=== PATIENT | male | born 1940 | race Caucasian/White ===

== ENCOUNTER 2020-05-03 11:38 | Outpatient (CLI) | payer MEDICARE, SELFPAY ==
[2020-05-03 12:01] LABS: Basophils Percent Auto 0.3 % (0.2-1.2); Eosinophils Absolute Auto 0.2 K/mm3 (0-0.3); Eosinophils Percent Auto 2.7 % (0-4.4); Hematocrit 41.1 % (42.0-52.0); Hemoglobin 13.7 g/dL (14.0-18.0); Immature Granulocyte Absolute 0.02 K/mm3 (0.00-0.031); Immature Granulocyte Percent A 0.3 % (0-0.5); Lymphocytes Absolute Auto 2.51 K/mm3 (0.9-3.2); Lymphocytes Percent Auto 35.3 % (18.3-44.2); Mean Corpuscular HGB Conc 33.3 g/dl (32-36); Mean Corpuscular Hemoglobin 29.9 pg (26-34); Mean Corpuscular Volume 89.7 fl (80-100); Monocytes Absolute Auto 0.3 K/mm3 (0.1-0.6); Monocytes Percent Auto 3.8 % (2.6-8.5); Neutrophils Absolute Auto 4.1 K/mm3 (1.3-6.7); Neutrophils Percent Auto 57.6 % (45.5-73.1); Platelet Count Result 201 k/mm3 (150-375); Red Blood Count 4.58 M/mm3 (4.6-6.20); Red Cell Distribution Width 13.6 % (11.5-14.5); White Blood Count 7.1 K/mm3 (4.5-10.0)
[2020-05-03 12:16] LABS: Alanine Aminotransferase 16 U/L (4-50); Albumin Level 4.2 g/dL (3.5-5.1); Alkaline Phosphatase 60 U/L (38-126); Aspartate Amino Transferase 24 U/L (17-59); Bilirubin,Total 0.8 mg/dL (0.2-1.3); Blood Urea Nitrogen 27 mg/dL (9-20); Calcium 9.1 mg/dL (8.4-10.2); Carbon Dioxide 31 mmol/L (22-30); Chloride 103 mmol/L (98-107); Cholesterol 195 mg/dL (0-200); Estimated Glomerular Filt Rate 49; Glucose 117 mg/dL (75-110); HDL Direct 32 mg/dL; Potassium 3.9 mmol/L (3.4-5.0); Sodium 141 mmol/L (137-145); Triglycerides 97 mg/dL (<150)
[2020-05-03 12:27] LABS: LDL Cholesterol Direct 129 mg/dL
== END 2020-05-03 11:39 | disposition home or self-care (01) ==
PROVIDERS: PCP Family Medicine; Visit Provider Nurse Practitioner
DX: R53.83 Other fatigue (principal); I10 Essential (primary) hypertension; Z13.220 Encounter for screening for lipoid disorders
CPT/HCPCS: 36415; 80053; 80061; 85025

== ENCOUNTER 2020-11-06 07:55 | Outpatient (CLI) | payer MEDICARE, SELFPAY ==
[2020-11-06 08:38] LABS: Hematocrit 43.9 % (42.0-52.0); Hemoglobin 14.5 g/dL (14.0-18.0); Mean Corpuscular Hemoglobin 30.3 pg (26-34); Mean Corpuscular Volume 91.8 fl (80-100); Mean Platelet Volume 9.4 fl (7.4-10.4); Platelet Count Result 193 k/mm3 (150-375); Red Blood Count 4.78 M/mm3 (4.6-6.20); Red Cell Distribution Width 13.6 % (11.5-14.5); White Blood Count 6.9 K/mm3 (4.5-10.0)
[2020-11-06 08:39] LABS: Alanine Aminotransferase 15 U/L (4-50); Alkaline Phosphatase 63 U/L (38-126); Anion Gap 6 mmol/L (8-16); Aspartate Amino Transferase 21 U/L (17-59); Bilirubin,Total 0.6 mg/dL (0.2-1.3); Blood Urea Nitrogen 26 mg/dL (9-20); Calcium 9.3 mg/dL (8.4-10.2); Carbon Dioxide 31 mmol/L (22-30); Chloride 102 mmol/L (98-107); Cholesterol 181 mg/dL (0-200); Estimated Glomerular Filt Rate 53; Glucose 106 mg/dL (75-110); HDL Direct 34 mg/dL; Potassium 3.5 mmol/L (3.4-5.0); Sodium 139 mmol/L (137-145); Triglycerides 77 mg/dL (<150)
[2020-11-06 08:50] LABS: LDL Cholesterol Direct 124 mg/dL
== END 2020-11-06 07:56 | disposition home or self-care (01) ==
PROVIDERS: PCP Nurse Practitioner Family; Visit Provider Nurse Practitioner Family
DX: I10 Essential (primary) hypertension (principal); E11.9 Type 2 diabetes mellitus without complications; E78.5 Hyperlipidemia, unspecified
CPT/HCPCS: 36415; 80053; 80061; 83036; 85027

== ENCOUNTER 2021-01-04 16:06 | Outpatient (CLI) | payer MEDICARE, SELFPAY | END 2021-01-04 16:07 | disposition home or self-care (01) | LOC: ANHCOVIDVC 16:06 | PROVIDERS: PCP Nurse Practitioner Family; Visit Provider Nurse Practitioner Family | DX: Z23 Encounter for immunization (principal) | CPT/HCPCS: 0001A; 91300 ==

== ENCOUNTER 2021-01-25 16:08 | Outpatient (CLI) | payer MEDICARE, SELFPAY | END 2021-01-25 16:09 | disposition home or self-care (01) | LOC: ANHCOVIDVC 16:08 | PROVIDERS: PCP Nurse Practitioner Family | DX: Z23 Encounter for immunization (principal) | CPT/HCPCS: 0002A; 91300 ==

== ENCOUNTER 2022-05-15 08:03 | Outpatient (CLI) | payer MEDICARE, SELFPAY ==
[2022-05-15 09:44] LABS: Basophils Percent Auto 0.5 % (0.2-1.2); Eosinophils Absolute Auto 0.1 K/mm3 (0-0.3); Eosinophils Percent Auto 2.3 % (0-4.4); Hematocrit 41.9 % (42.0-52.0); Hemoglobin 13.6 g/dL (14.0-18.0); Immature Granulocyte Absolute 0.02 K/mm3 (0.00-0.031); Immature Granulocyte Percent A 0.3 % (0-0.5); Lymphocytes Absolute Auto 1.86 K/mm3 (0.9-3.2); Mean Corpuscular HGB Conc 32.5 g/dl (32-36); Mean Corpuscular Hemoglobin 29.5 pg (26-34); Mean Corpuscular Volume 90.9 fl (80-100); Mean Platelet Volume 9.5 fl (7.4-10.4); Monocytes Absolute Auto 0.3 K/mm3 (0.1-0.6); Monocytes Percent Auto 4.8 % (2.6-8.5); Neutrophils Absolute Auto 3.7 K/mm3 (1.3-6.7); Neutrophils Percent Auto 61.1 % (45.5-73.1); Platelet Count Result 183 k/mm3 (150-375); Red Blood Count 4.61 M/mm3 (4.6-6.20); Red Cell Distribution Width 13.9 % (11.5-14.5)
[2022-05-15 09:51] LABS: Alanine Aminotransferase 19 U/L (6-50); Alkaline Phosphatase 64 U/L (38-126); Anion Gap 4 mmol/L (8-16); Aspartate Amino Transferase 32 U/L (17-59); Bilirubin,Total 0.6 mg/dL (0.2-1.3); Blood Urea Nitrogen 30 mg/dL (9-20); Carbon Dioxide 31 mmol/L (22-30); Chloride 102 mmol/L (98-107); Cholesterol 178 mg/dL (0-200); Estimated Glomerular Filt Rate 49; Glucose 106 mg/dL (65-110); HDL Direct 31 mg/dL; Potassium 3.8 mmol/L (3.4-5.0); Sodium 137 mmol/L (137-145); Triglycerides 86 mg/dL (<150)
[2022-05-15 10:01] LABS: LDL Cholesterol Direct 103 mg/dL
== END 2022-05-15 08:04 | disposition home or self-care (01) ==
LOC: ANHGOSHLAB 08:06
PROVIDERS: PCP Family Medicine; Visit Provider Nurse Practitioner Family
DX: E78.5 Hyperlipidemia, unspecified (principal); I10 Essential (primary) hypertension
CPT/HCPCS: 36415; 80053; 80061; 85025

== ENCOUNTER 2022-06-12 07:50 | Outpatient (CLI) | payer MEDICARE, SELFPAY | END 2022-06-12 07:51 | disposition home or self-care (01) | LOC: ANHAUDASC 07:52 | PROVIDERS: PCP Nurse Practitioner Family; Visit Provider Nurse Practitioner Family | DX: H90.3 Sensorineural hearing loss, bilateral (principal) | CPT/HCPCS: 92557; 92567 ==

== ENCOUNTER 2022-07-24 08:00 | Outpatient (RCR) | payer MEDICARE, SELFPAY | END 2022-09-20 23:59 | disposition home or self-care (01) | LOC: ANHAUDASC 08:00 | PROVIDERS: PCP Nurse Practitioner Family; Visit Provider Nurse Practitioner Family | DX: Z46.1 Encounter for fitting and adjustment of hearing aid (principal) | CPT/HCPCS: 99199; V5257 ==

== ENCOUNTER 2022-08-29 17:34 | Inpatient (IN) | payer MEDICARE, SELFPAY ==
--- NOTE | ~2022-08-29 | XR_ITS ---
XR chest 1V portable 09/02/2022 11:04 Indication: Diminished lung sounds. Procedure: AP portable chest Comparison: Comparison to multiple prior studies sequentially, with oldest reviewed study dated 05/18. Findings: There is a right pleural effusion. There is right basilar airspace consolidation which may represent atelectasis or pneumonia. There is diffuse mild bilateral interstitial infiltrates. Stable cardiomediastinal silhouette. No pneumothorax. Impression: 1: Focal right lower lobe air airspace consolidation which may represent atelectasis and/or pneumonia . 2: Diffuse bilateral interstitial infiltrates which may represent mild edema. 3: Small right pleural effusion. Reviewed, dictated and finalized at location A. Impression: 1: Focal right lower lobe air airspace consolidation which may represent atelec tasis and/or pneumonia. 2: Diffuse bilateral interstitial infiltrates which may represent mild edema. 3: Small right pleural effusion.
--- NOTE | ~2022-08-29 | XR_ITS ---
EXAMINATION: [id number]_[id number]_CR DATE: 08/30/2022 15:25 INDICATION: Status post right thoracentesis TECHNIQUE: frontal view of the chest was obtained. COMPARISON: Chest radiograph dated 08/29/2022 FINDINGS: Decrease in size of a now small right pleural effusion. No pneumothorax. There is relatively increase d lucency and decreased bronchovascular pattern in the right lung suggesting there is significant res idual atelectasis in the right middle and lower lobes with compensatory hyperexpansion of the left up per lobe. There is subtle pleural-based nodule at the lateral right midlung zone. Left lung is clear with no pleural effusion or pneumothorax. Heart size is normal. IMPRESSION: 1. Decreased now small likely malignant right pleural effusion with no pneumothorax post thoracentesi s. 2. Subtle pleural-based nodule in the right lung with more extensive pleural nodularity evident on ea rlier CT as well as by ultrasound at the time of the thoracentesis which is concerning for metastatic disease. Reviewed, dictated and finalized at location A. IMPRESSION: 1. Decreased now small likely malignant right pleural effusion with no pneumoth orax post thoracentesis. 2. Subtle pleural-based nodule in the right lung with more extensive pleural no dularity evident on earlier CT as well as by ultrasound at the time of the thor acentesis which is concerning for metastatic disease.
--- NOTE | ~2022-08-29 | XR_ITS ---
EXAMINATION: XR abdomen/kub 1V DATE: 09/01/2022 12:50 INDICATION: Bladder mass. TECHNIQUE: 3 intraoperative fluoroscopic views of the abdomen and pelvis were obtained. I was not pre sent. Fluoroscopy exposure time was 7 seconds. COMPARISON: None. FINDINGS: There are no dilated loops of bowel. There is no visible urolithiasis. There are phlebolith s in the pelvis. IMPRESSION: 1. No visible urolithiasis. Reviewed, dictated and finalized at location A. IMPRESSION: 1. No visible urolithiasis.
--- NOTE | ~2022-08-29 | US_ITS ---
US abdomen limited INDICATION: Acute renal insufficiency PROCEDURE: Realtime right upper abdominal ultrasound. COMPARISON: Ultrasound dated 04/20/2016 FINDINGS: The pancreas is normal without focal mass or pancreatic ductal dilation. Liver is enlarged measuring 16.6 cm. Liver echotexture is increased and heterogeneous with nodular surface, compatible with cirrhosis. There is ascites. There is a small right pleural effusion. There is normal directio nal flow in the portal vein. The gallbladder is normal without stones, gallbladder wall thickening or pericholecystic fluid. Comm on bile duct measures 2.4 mm. No sonographic Navarro's sign. IMPRESSION: 1: Cirrhosis of the liver. Hepatomegaly. 2: Ascites. 3: Right pleural effusion. Reviewed, dictated and finalized at location B.
--- NOTE | ~2022-08-29 | US_ITS ---
US renal BI 09/03/2022 10:39 Procedure: Realtime transabdominal ultrasound of the kidneys and bladder. Indication: Elevated creatinine Comparison: Ultrasound dated 08/30/2022 Findings: There is ascites. There is moderate right hydronephrosis. No stones, masses or cysts are id entified. Left kidney within normal limits measuring 11.4 cm. The right kidney measures 10.5 cm and l eft kidney measures 11.4 cm. Bladder is not well visualized due to catheterization. Impression: 1: Moderate right hydronephrosis. 2: Ascites. Reviewed, dictated and finalized at location A. Impression: 1: Moderate right hydronephrosis. 2: Ascites.
--- NOTE | ~2022-08-29 | US_ITS ---
EXAMINATION: US thoracentesis DATE: 08/30/2022 15:32 INDICATION: Right pleural effusion TECHNIQUE: The procedure and its risks and benefits were discussed with the patient. Potential risks discussed included bleeding, infection, and pneumothorax. The patient understood the risks and agreed to proceed. The skin was prepped and draped in sterile fashion. 1% lidocaine was used for local anes thesia. Under ultrasound guidance, a 5 Fr catheter with trochar was advanced into the right pleural e ffusion. Fluid was aspirated. The catheter was removed, and a dressing was applied. There were no imm ediate complications. FINDINGS: Ultrasound images demonstrate a moderate-sized right pleural effusion and the catheter within the flu id. There are multiple nodular soft tissue deposits along the pleural both lung the peripheral pleura the chest wall as well as along the diaphragm. Small amount of perihepatic ascites is also seen. IMPRESSION: 1. Successful ultrasound-guided thoracentesis yielding 1000 mL of slightly cloudy dark vriaj-colored fluid. 2. Nodular soft tissue deposits along the right parietal pleura concerning for metastatic disease. 3. Perihepatic ascites. Reviewed, dictated and finalized at location A. IMPRESSION: 1. Successful ultrasound-guided thoracentesis yielding 1000 mL of slightly tati udy dark viraj-colored fluid. 2. Nodular soft tissue deposits along the right parietal pleura concerning for metastatic disease. 3. Perihepatic ascites.
--- NOTE | ~2022-08-29 | US_ITS ---
EXAMINATION: US renal BI DATE: 08/30/2022 10:38 INDICATION: Acute kidney injury. TECHNIQUE: Multiple ultrasound grayscale images of the kidneys were obtained. COMPARISON: None. FINDINGS: The right kidney measures 10.5 x 5.0 x 6.5 cm. The left kidney measures 11.4 x 4.8 x 5.1 cm. The kidn eys demonstrate normal parenchymal echogenicity. There is mild right hydronephrosis. There is a 4.1 c m hyperechoic mass in the bladder. IMPRESSION: 1. Mild right-sided hydronephrosis. 2. 4.1 cm bladder mass, which may be hematoma or malignancy. Reviewed, dictated and finalized at location A.
--- NOTE | ~2022-08-29 | XR_ITS ---
EXAMINATION: XR_[id number]_CR DATE: 09/07/2022 16:16 INDICATION: Right pleural effusion status post thoracentesis. TECHNIQUE: A single frontal view of the chest was obtained. COMPARISON: Chest single view 08/30/2022 FINDINGS: There is a small right pleural effusion. There is nodular pleural thickening on the right. There are airspace opacities at right lung base. No pneumothorax. The heart size is normal. IMPRESSION: 1. Small malignant right pleural effusion. 2. Airspace opacities at right lung base, likely atelectasis. Reviewed, dictated and finalized at location A.
--- NOTE | ~2022-08-29 | US_ITS ---
US paracentesis abd w/image DATE: 09/10/2022 09:53 INDICATION: Ascites TECHNIQUE: The purpose of the procedure, technique and potential competitions were discussed with the patient. The patient indicated understanding and gave consent. Timeout procedure confirmed proper patient and procedure. The lower mid abdomen was prepared with sterile Betadine solution and sterile drape. 1% lidocaine loc al anesthetic was administered to the skin and underlying subcutaneous tissues. A single stick needle /catheter was introduced into the peritoneal space using ultrasound guidance. Clear yellow ascites wa s identified at the hub of the needle. The catheter was advanced over the needle and the needle withd rawn. 3250 CC cloudy orange/brown ascites was drained uneventfully. IMPRESSION: Uncomplicated ultrasound-guided percutaneous paracentesis procedure yielding 3.25 L of cl oudy orange/brown fluid Reviewed, dictated and finalized at Location A. Reviewed, dictated and finalized at location A. 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
--- NOTE | ~2022-08-29 | US_ITS ---
EXAMINATION: US paracentesis abd w/image DATE: 09/05/2022 12:35 INDICATION: Ascites. TECHNIQUE: The procedure and its risks, benefits, and alternatives were discussed with the patient. P otential risks discussed included bleeding and infection. The skin was prepped and draped in sterile fashion. 1% lidocaine was used for local anesthesia. Under ultrasound guidance, a 5 Fr catheter with trochar was advanced into the ascites in the left lower quadrant. Fluid was aspirated. The catheter w as removed, and a dressing was applied. There were no immediate complications. FINDINGS: Ultrasound images demonstrate ascites and the catheter within the fluid. IMPRESSION: 1. Successful ultrasound-guided paracentesis yielding 3100 mL of yellow fluid. Reviewed, dictated and finalized at location A.
--- NOTE | ~2022-08-29 | XR_ITS ---
XR chest 2V DATE: 08/29/2022 18:18 INDICATION: Weakness today. History of hypertension. TECHNIQUE: PA and lateral views COMPARISON: 06/20/2016 PA and lateral chest FINDINGS: There is prominent elevation of the right leaf of the diaphragm and/or subpulmonic pleural effusion since 06/20/2016. Consider right lateral decubitus radiograph to evaluate for any free pleura l effusion. There is associated infiltrate or atelectasis in the right mid and particularly lower lung zone. The left lung is clear. No left pleural effusion. No pneumothorax. Heart size is normal. Aortic arch calcification. No left hilar enlargement is noted. The right hilum is partially obscured by the elevated diaphragm and/or pleural effusion and right sided infiltrate or atelectasis. There is osteopenia. No suspicious lytic or blastic lesions are noted. IMPRESSION: Interval prominent elevated diaphragm and/or subpulmonic pleural effusion on the right Right mid and particularly lower lung infiltrate or atelectasis Cannot exclude right hilar mass or adenopathy Osteopenia Reviewed, dictated and finalized at location A. IMPRESSION: Interval prominent elevated diaphragm and/or subpulmonic pleural ef fusion on the right Right mid and particularly lower lung infiltrate or atelectasis Cannot exclude right hilar mass or adenopathy Osteopenia
--- NOTE | ~2022-08-29 | CT_ITS ---
EXAMINATION: CT abdomen pelvis wo con DATE: 09/06/2022 08:44 INDICATION: Abdominal distention. TECHNIQUE: Computed tomography (CT) of the abdomen and pelvis was performed without intravenous contr ast. Automated exposure control and iterative reconstruction technique were employed. The dose-length product was 835.25 mGy-cm. COMPARISON: Chest CT 08/30/2022 FINDINGS: There are moderate-sized right and small left pleural effusions. There is nodular pleural t hickening in right hemithorax. There are scattered pulmonary nodules bilaterally measuring up to 6 mm on the left. The heart size is normal. No pericardial effusion. The liver, gallbladder, spleen, panc reas, and adrenal glands are normal. There is a right-sided percutaneous nephrostomy tube in expected position. There is a 3.0 cm cyst in left kidney. The prostate is mildly enlarged. The bladder is dec ompressed by a [place] catheter. There are stones in the bladder. Bladder wall thickening is noted. The re are scattered diverticula in the colon. There are no dilated loops of bowel. There is a surgical c lip in the expected area of the appendix. There is a left inguinal hernia containing fat. There is pe lvic lymphadenopathy. For example, a right external iliac node measures 4.0 x 2.3 cm. There is a smal l volume of ascites. There is widespread peritoneal nodular thickening, consistent with carcinomatosi s. There is severe lower lumbar spondylosis. There is mild thoracic spondylosis. IMPRESSION: 1. Moderate-sized malignant right pleural effusion. Small left pleural effusion. 2. Lung nodules and pelvic lymphadenopathy, consistent with metastatic disease. 3. Peritoneal carcinomatosis with small volume of ascites. 4. Bladder stones. Reviewed, dictated and finalized at location A. IMPRESSION: 1. Moderate-sized malignant right pleural effusion. Small left pleural effusion . 2. Lung nodules and pelvic lymphadenopathy, consistent with metastatic disease. 3. Peritoneal carcinomatosis with small volume of ascites. 4. Bladder stones.
--- NOTE | ~2022-08-29 | US_ITS ---
EXAMINATION: US thoracentesis DATE: 09/07/2022 16:26 INDICATION: pleural effusion TECHNIQUE: The procedure and its risks, benefits, and alternatives were discussed with the patient. P otential risks discussed included bleeding, infection, and pneumothorax. The patient understood the r isks and agreed to proceed. The skin was prepped and draped in sterile fashion. 1% lidocaine was used for local anesthesia. Under ultrasound guidance, a 5 Fr catheter with trochar was advanced into the right pleural effusion. Fluid was aspirated. The catheter was removed, and a dressing was applied. Th ere were no immediate complications. FINDINGS: Ultrasound images demonstrate a right pleural effusion and the catheter within the fluid. IMPRESSION: 1. Successful ultrasound-guided thoracentesis yielding 1000 mL of serosanguineous fluid. Reviewed, dictated and finalized at location A. IMPRESSION: 1. Successful ultrasound-guided thoracentesis yielding 1000 mL of serosanguine ous fluid.
--- NOTE | ~2022-08-29 | CT_ITS ---
EXAMINATION:CT diagnostic chest wo con DATE: 08/30/2022 08:43 INDICATION: Hilar mass. TECHNIQUE: Computed tomography (CT) of the chest was performed without intravenous contrast. Automate d exposure control and iterative reconstruction technique were employed. The dose-length product (DLP ) was 392.70 mGy-cm. COMPARISON: Chest 2 views 08/29/2022 FINDINGS: There is a moderate-sized right pleural effusion. There are a few scattered nodules in the lungs measuring up to 10 mm in left lower lobe. There is nodular pleural thickening in right hemithor ax. There is a 2.0 cm nodule in left thyroid lobe, likely not clinically significant given the patien t's comorbidities. The heart size is normal. No pericardial effusion. There is mild mediastinal lymph adenopathy. There are ill-defined hypodense masses in the liver measuring up to 3.9 cm in right hepat ic lobe. There is a least a moderate volume of ascites. There is peritoneal nodularity, consistent wi th carcinomatosis. There is a 2.2 cm cyst in left kidney. There is mild thoracic spondylosis. IMPRESSION: 1. Right-sided malignant pleural effusion, ascites with peritoneal carcinomatosis, lung nodules, live r masses, and mild mediastinal lymphadenopathy, consistent with metastatic disease. Consider ultrasou nd-guided thoracentesis or paracentesis for diagnosis. Reviewed, dictated and finalized at location A. IMPRESSION: 1. Right-sided malignant pleural effusion, ascites with peritoneal carcinomatos is, lung nodules, liver masses, and mild mediastinal lymphadenopathy, consisten t with metastatic disease. Consider ultrasound-guided thoracentesis or paracent esis for diagnosis.
--- NOTE | ~2022-08-29 | CT_ITS ---
EXAMINATION: CT guide nephro tube pl RT DATE: 09/04/2022 14:59 INDICATION: Right hydronephrosis. TECHNIQUE: The procedure including the risks, benefits, and alternatives was discussed with the patie nt. Risks discussed included bleeding and infection. The patient understood the risks and benefits an d agreed to proceed. The patient was confirmed to be receiving appropriate antibiotic coverage. The skin overlying the right kidney was prepped and draped in usual sterile fashion. Anesthetic was admi nistered with 1% lidocaine subcutaneously. An 18 gauge trochar needle was inserted into a calyx of th e kidney under CT guidance. The needle was exchanged over a wire for 6 [place]er, 8 [place]er, and 9 [place]er dilators and then for an 8.5 [place] Islander pigtail catheter under CT guidance. The catheter was stitched to the skin. A dressing was applied. The mA was adjusted according to patient size. Iterative reconstru ction technique was employed. The dose-length product was 272.29 mGy-cm. There were no immediate comp lications. FINDINGS: CT images demonstrate the nephrostomy tube in the renal pelvis. There is a moderate volume of ascites. Peritoneal nodularity is noted, consistent with carcinomatosis. There are small left and moderate-sized right pleural effusions. There is nodular pleural thickening on the right, consistent with malignant effusion. IMPRESSION: 1. Successful CT-guided right nephrostomy tube placement]. Reviewed, dictated and finalized at location A.
[2022-08-29 17:40] VITALS: BP 119/66; PULSE 82; RESP 18; TEMP 36.1; O2SAT 99
--- NOTE | 2022-08-29 17:44 | ECG_ITS ---
Measurements Intervals Graff Rate: 80 P: 55 MO: 183 QRS: -41 QRSD: 129 T: 76 QT: 385 QTc: 444 Interpretive Statements SINUS RHYTHM WITH FREQUENT SUPRAVENTRICULAR PREMATURE COMPLEXES AND PREMATURE VENTRICULAR COMPLEXES MARKED LEFT AXIS DEVIATION [QRS AXIS < -30] POSSIBLE LEFT VENTRICULAR HYPERTROPHY [VOLTAGE CRITERIA PLUS LAE OR QRS WIDENING] POSSIBLE ANTERIOR MYOCARDIAL INFARCTION , PROBABLY OLD [30 ms Q WAVE IN V3/V4, OR R < 0.2 mV IN V4] NO PREVIOUS ECG AVAILABLE FOR COMPARISON Electronically Signed On 08-30-2022 13:01:48 CDT by Shannan Landin M.D.
[2022-08-29 18:09] LABS: Basophils Percent Auto 0.3 % (0.2-1.2); Eosinophils Percent Auto 0.1 % (0-4.4); Hematocrit 36.6 % (42.0-52.0); Hemoglobin 12.1 g/dL (14.0-18.0); Immature Granulocyte Percent A 1.5 % (0-0.5); Lymphocytes Absolute Auto 2.59 K/mm3 (0.9-3.2); Lymphocytes Percent Auto 19.1 % (18.3-44.2); Mean Corpuscular HGB Conc 33.1 g/dl (32-36); Mean Corpuscular Hemoglobin 28.8 pg (26-34); Mean Corpuscular Volume 87.1 fl (80-100); Mean Platelet Volume 8.5 fl (7.4-10.4); Monocytes Percent Auto 7.3 % (2.6-8.5); Neutrophils Absolute Auto 9.7 K/mm3 (1.3-6.7); Neutrophils Percent Auto 71.7 % (45.5-73.1); Platelet Count Result 455 k/mm3 (150-375); Red Cell Distribution Width 13.2 % (11.5-14.5); White Blood Count 13.6 K/mm3 (4.5-10.0)
[2022-08-29 18:19] LABS: Alanine Aminotransferase 100 U/L (6-50); Albumin Level 3.6 g/dL (3.5-5.1); Alkaline Phosphatase 312 U/L (38-126); Anion Gap 18 mmol/L (8-16); Aspartate Amino Transferase 100 U/L (17-59); Bilirubin,Total 0.5 mg/dL (0.2-1.3); Blood Urea Nitrogen 101 mg/dL (9-20); Calcium 9.2 mg/dL (8.4-10.2); Carbon Dioxide 19 mmol/L (22-30); Chloride 98 mmol/L (98-107); Estimated CRCL calculation 20 ml/min; Estimated Glomerular Filt Rate 20; Glucose 120 mg/dL (65-110); Potassium 4.5 mmol/L (3.4-5.0); Sodium 135 mmol/L (137-145)
--- NOTE | 2022-08-29 18:37 | ED.GENADULT ---
HPI - General Adult General Chief complaint: Weakness Stated complaint: decreased appetite/weak Time Seen by Provider: 08/29/22 18:17 History of Present Illness HPI narrative: This is a 81-year-old male with history of CKD stage 4 presenting ED with 1 week of feeling sluggish. Over that time he has been feeling more weak and has had a decreased appetite. He denies URI symptoms, chest pain, difficulty breathing, abdominal pain, numbness tingling weakness in the extremity. He has no sick contacts at home. He is vaccinated against COVID and flu. Related Data Home Medications Medication Instructions Recorded Confirmed aspirin 81 mg chewable tablet 81 mg PO DAILY 11/12/19 07/26/22 (Raquel Chewable Low Dose Aspirin) Allergies Allergy/AdvReac Type Severity Reaction Status Date / Time No Known Allergies Allergy Verified 08/29/22 18:21 Review of Systems Review of Systems: CONSTITUTIONAL: Denies night sweats. EYES: No eye pain ENT: Denies rhinorrhea CARDIOVASCULAR: Denies palpitations RESPIRATORY: Denies hemoptysis GASTROINTESTINAL: Denies hematemesis GENITOURINARY: Denies hematuria. SKIN: Denies rash MUSCULOSKELETAL: Denies myalgia. NEUROLOGIC: Denies weakness. 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 CKD (chronic kidney disease) stage 3, GFR 30-59 ml/min Essential (primary) hypertension Hearing loss of both ears History of 2019 novel coronavirus disease (COVID-19) (~01/2020) Hyperlipidemia Family History Family History Mother Hypertension Family history of malignant neoplasm of breast in first degree relative Father Family history of pancreatic cancer Family history of heart disease in male family member before age 55 Social History Social History Smoking status: Former smoker Alcohol intake: never Substance use: never Substance use type: does not use Gender identity (if verbalized by the patient): Male Sexual Orientation (if Verbalized by the Patient): Straight or Heterosexual Agree to blood products: Yes Exam Narrative: APPEARANCE: No apparent distress. Head atraumatic. EYES: PERRLA/EOMI, NOSE: Normal no drainage NECK: Supple, Trachea midline RESPIRATORY: CTAB, No increased work of breathing. CARDIOVASCULAR: S1S2 appreciated ABDOMINAL: Soft, nontender, nondistended, MUSCULOSKELETAl: No obvious deformities NEURO: Alert. Moving 4/4 extremities SKIN:: Warm, dry. Normal color PSYCHIATRIC: Normal affect Course Vital Signs Vital signs: Vital Signs Temperature 97.0 F L 08/29/22 17:40 Pulse Rate 82 08/29/22 17:40 Respiratory Rate 18 08/29/22 17:40 Blood Pressure 119/66 08/29/22 17:40 Pulse Oximetry 99 08/29/22 17:40 Temperature 97.0 F L 08/29/22 17:40 Pulse Rate 82 08/29/22 17:40 Respiratory Rate 18 08/29/22 17:40 Blood Pressure 119/66 08/29/22 17:40 Pulse Oximetry 99 08/29/22 17:40 Medical Decision Making MDM Narrative Medical decision making narrative: this is a 81-year-old male presenting ED with 1 week of lethargy. Other than that his exam is essentially nonfocal. Does have a history of CKD 4 and I am concerned that he may have tipped over into CKD 5/ complete renal failure. Lab work has been ordered. Flu and COVID been ordered. Chest x-ray and EKG will be obtained. Patient's lab work was significant for a BUN of 101 and a creatinine of 3.1. I compared this to previous values were his baseline BUN creatinine is typically 30/1.4 patient's potassium was 4.5. He is slightly acidotic at 19. CBC was significant for white blood cell count 13.6. This is of unknown etiology or significance at this time. Hemoglobin is 12.1. Chest x-ray was interpreted as: IMPRESSION: Interval prominent elev
[2022-08-29 19:28] LABS: Influenza A QL RT-PCR Negative (Negative); Influenza B QL RT-PCR Negative (Negative); SARS-CoV-2 RNA PCR Negative
[2022-08-29] MEDS: SODIUM CHLORIDE 0.9% IV 1,000 ML 999 ML IV CONT (19:51)
--- NOTE | 2022-08-29 20:20 | PM.IMHP ---
H&P: HPI History of Present Illness Date/Time: 08/29/22 20:20 Chief Complaint: Feeling lousy Narrative: This is a 81-year-old male with past medical history significant for hypertension. patient was brought to the emergency room by his daughters after he has had a week is states feeling lousy his usually very active and has not been wanting to leave the house has had poor appetite, poor oral intake, however can not really give any specific details denies fevers, rigors, chills, cough, sputum production, weight loss, no lightheadedness, no syncope, no near syncope, no shortness of breath, no chest pain, no palpitations, no leg swelling no falls, no focal sensorimotor deficit no pain or burning with urination, no diarrhea, no abdominal pain, no PND, no orthopnea. Preliminary workup was significant for chemistry panel BUN 101 creatinine 3.1 chest x-ray was reported as: IMPRESSION: Interval prominent elevated diaphragm and/or subpulmonic pleural effusion on the right Right mid and particularly lower lung infiltrate or atelectasis Cannot exclude right hilar mass or adenopathy Osteopenia? Review of Systems Review of Systems: feeling lousy, poor appetite. Constitutional: Constitutional: Denies chills, Denies fever(s), Reports lethargy, Denies malaise, Denies night sweats and Reports poor appetite Eyes: Eyes: Denies change in vision ENT: Denies dysphagia, Denies vertigo, Denies dizziness and Denies odynophagia Cardiovascular: Cardiovascular: Denies chest pain, Denies syncope, Denies pedal edema, Denies irregular heart rhythm, Denies leg edema, Denies lightheadedness, Denies palpitations and Denies dyspnea on exertion Respiratory: Respiratory: Denies chest congestion, Denies cough, Denies excessive phlegm production, Denies pain on inspiration, Denies dyspnea and Denies dyspnea on exertion Gastrointestinal: Gastrointestinal: Denies abdominal pain, Denies dyspepsia, Denies heartburn, Reports diarrhea, Denies nausea and Denies vomiting Comments: Patient had 1 or 2 episodes of diarrhea Genitourinary: Genitourinary: Denies dysuria Musculoskeletal: Musculoskeletal: Denies abnormal gait, Denies back pain, Denies myalgias and Denies joint swelling Integumentary/Breasts: Skin/Breast: Denies rash Neurologic: Denies vertigo, Denies dizziness, Denies focal weakness and Denies Sensory deficit (Neuro) Psychiatric: Psychiatric: Reports no additional psychiatric complaints and Reports as per HPI Endocrine: Endocrine: Denies cold intolerance, Denies flushing, Denies heat intolerance, Denies polyphagia, Denies polydipsia and Denies palpitations Hematologic/Lymphatic: Hematologic/Lymphatic: Reports no additional hematologic/lymphatic complaints and Reports as per HPI Allergic/Immunologic: Allergic/Immunologic: Reports no additional allergic/immunologic complaints and Reports as per HPI PMFSH Past Medical History Medical History 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 CKD (chronic kidney disease) stage 3, GFR 30-59 ml/min Essential (primary) hypertension Hearing loss of both ears History of 2019 novel coronavirus disease (COVID-19) (~01/2020) Hyperlipidemia Family History Family History Mother Hypertension Family history of malignant neoplasm of breast in first degree relative Father Family history of pancreatic cancer Family history of heart disease in male family member before age 55 Social History Social History Smoking packs per day: 1 Smoking cigarettes per day: 20.0 Years smoked: 4 Smoking pack-years: 4.00 Smoking status: Former smoker Alcohol intake: never Substance use: never Substance use type: does not use Gender identity (if verbalized by the patient): Male Sexual Orientation (if Verbalized by the Patient): Straight or Heterosexual Spiritual c
[2022-08-29 21:01] VITALS: BP 122/78; PULSE 74; RESP 21; O2SAT 98
[2022-08-29] MEDS: SODIUM CHLORIDE 0.9% IV 1,000 ML 75 ML IV CONT (21:16)
[2022-08-29 21:33] VITALS: BP 132/74; PULSE 80; RESP 20; TEMP 36.7; O2SAT 98
[2022-08-29 21:34] VITALS: BMI 26.9
--- NOTE | 2022-08-29 21:50 | PC.NURSE ---
This patient, Tad Anderson, was admitted to Medical Room 345-01. Patient/family oriented to hospital policies and general routines including ID bracelet, bed and alarms, visiting hours, pain management, procedures, bathroom and other care routines, personal items, smoking policy, room service/diet, and visiting hours. Information on how to activate the Rapid Response Team has been discussed. Patient/Family are encouraged to report perceived risks to care and to ask questions if they do not understand what they are told or what they should do.
[2022-08-30 01:38] LABS: Basophils Percent Auto 0.3 % (0.2-1.2); Eosinophils Percent Auto 0.3 % (0-4.4); Hematocrit 32.6 % (42.0-52.0); Hemoglobin 10.9 g/dL (14.0-18.0); Immature Granulocyte Absolute 0.15 K/mm3 (0.00-0.031); Immature Granulocyte Percent A 1.3 % (0-0.5); Lymphocytes Absolute Auto 2.14 K/mm3 (0.9-3.2); Lymphocytes Percent Auto 18.3 % (18.3-44.2); Mean Corpuscular HGB Conc 33.4 g/dl (32-36); Mean Corpuscular Hemoglobin 29.5 pg (26-34); Mean Corpuscular Volume 88.1 fl (80-100); Mean Platelet Volume 8.3 fl (7.4-10.4); Monocytes Absolute Auto 0.9 K/mm3 (0.1-0.6); Monocytes Percent Auto 7.7 % (2.6-8.5); Neutrophils Absolute Auto 8.4 K/mm3 (1.3-6.7); Neutrophils Percent Auto 72.1 % (45.5-73.1); Platelet Count Result 330 k/mm3 (150-375); White Blood Count 11.7 K/mm3 (4.5-10.0)
[2022-08-30 01:48] LABS: Anion Gap 11 mmol/L (8-16); Blood Urea Nitrogen 96 mg/dL (9-20); Calcium 8.5 mg/dL (8.4-10.2); Carbon Dioxide 17 mmol/L (22-30); Chloride 102 mmol/L (98-107); Estimated CRCL calculation 22 ml/min; Estimated Glomerular Filt Rate 22; Glucose 100 mg/dL (65-110); Magnesium 2.3 mg/dL (1.6-2.3); Phosphorus 4.6 mg/dL (2.5-4.5); Potassium 4.6 mmol/L (3.4-5.0); Sodium 130 mmol/L (137-145)
[2022-08-30 06:00] VITALS: BP 120/76; PULSE 80; RESP 18; TEMP 36.7; O2SAT 98
[2022-08-30 06:08] LABS: Add Urine Microscopic? YES; Appearance Urine Cloudy (Clear); Bilirubin Urine Negative (Negative); Blood Urine 3+ (Negative); Color Urine Amber (Yellow); Glucose Urine UA Negative (Negative); Ketones Urine Negative (Negative); Leukocyte Esterase Ur Trace LEU/UL (Negative); Mucus Urine Rare /lpf; Nitrate Urine Negative (Negative); Protein Urine 1+ mg/dL (Negative); RBC Urine >75 /hpf (0-2); Specific Grav Ur 1.016 (1.001-1.035); Urobilinogen Urine Negative mg/dL (<2.0); WBC Urine 31-50 /hpf
--- NOTE | 2022-08-30 06:25 | PM.CNNEP ---
Assessment and Plan Assessment and plan (1) Acute kidney injury superimposed on CKD: Code(s): N17.9 - Acute kidney failure, unspecified; N18.9 - Chronic kidney disease, unspecified Status: Acute Assessment and Plan: Tad has chronic kidney disease. His creatinine has been relatively stable at about 1.3 since 2019. He could have hypertensive nephrosclerosis because he has had hypertension for a long time. he has hyperlipidemia and along with the high blood pressure this puts him at higher risk for having some small-vessel vascular disease in the kidneys. On the other hand the creatinine seemed to worsen in 2019 and that is when he had COVID so he could have had some effect on the kidneys by the COVID. There other causes of chronic kidney disease as well including Interstitial nephritis, glomerulonephritis but these are less likely in this clinical scenario. Obstruction is always a possibility. The patient has acute kidney injury as well. he does have pneumonia by chest x-ray which can cause renal failure. He also has not been eating and drinking all week and so may have dehydration. He has pyuria could have a bladder infection which occasionally could affect kidney function as well. Urine culture is pending. He is on antibiotics. Obstruction and rhabdomyolysis are also possible. He is not on a statin. At this point will get a renal ultrasound, urine electrolytes, and continue hydration. Will follow the creatinine going forward. (2) Lung infiltrate: Code(s): R91.8 - Other nonspecific abnormal finding of lung field Status: Acute Assessment and Plan: the patient has infiltrate on his chest x-ray. He was diagnosed with pneumonia and is getting some antibiotics. (3) Hypertension: Code(s): I10 - Essential (primary) hypertension Status: Acute Assessment and Plan: Patient has hypertension. His blood pressure is well controlled right now. (4) Acidosis: Code(s): E87.20 - Acidosis, unspecified Status: Acute Assessment and Plan: His bicarbonate level is a little bit on the low side. This may be due to the renal insufficiency with low production of ammonia. History of Present Illness Reason for Consult Consult date: 08/30/22 Chief Complaint Chief complaint: Kidney Failure History of Present Illness Narrative: Tad is a very pleasant 81-year-old gentleman who has hypertension, CKD, hearing loss, history of COVID, hyperlipidemia. His creatinine was 1.0 in 2018 and since 2019 his creatinine had been running around 1.3-1.4. the patient's problems started around a week ago when he lost his appetite. He just had no appetite for any food. He was eating puddings Jell-O etc.. The patient had some hot cold feelings as well but never ran a fever that he knows of. He continued to feel worse and he became weak and so he came to the ER last night. Labs were checked and his creatinine was 3.1 so renal consultation was requested. Other evaluation was basically unremarkable. He was COVID negative in flu negative. He did have a chest x-ray showing a right lower lobe infiltrate and so he was diagnosed with pneumonia and placed on ceftriaxone and azithromycin. The patient says he has never had any kidney symptoms. No bloody urine foamy urine kidney stones bladder infections or pain with urination. He does not take any nonsteroidal anti-inflammatory agents. He has not changed his medicines lately. Even though he was not eating or drinking very much he continued to take his blood pressure pills. His blood pressure was okay in the ER and since. He has had hypertension for many years and has been well controlled. Review of Systems Constitutional: Constitutional: Reports no additional constitutional complaints Eyes: Eyes: Reports no additional eye complaints ENT: Reports system reviewed and no additional complaints, except as docum
[2022-08-30 06:32] LABS: Anion Gap 16 mmol/L (8-16); Blood Urea Nitrogen 94 mg/dL (9-20); Calcium 8.5 mg/dL (8.4-10.2); Carbon Dioxide 18 mmol/L (22-30); Chloride 101 mmol/L (98-107); Estimated CRCL calculation 22 ml/min; Estimated Glomerular Filt Rate 22; Glucose 97 mg/dL (65-110); Potassium 4.5 mmol/L (3.4-5.0); Sodium 135 mmol/L (137-145)
[2022-08-30 07:36] LABS: Creatine Kinase 25 U/L (55-170)
[2022-08-30] MEDS: amLODIPine BESYLATE 5 MG TABLET 10 MG PO (08:55)
[2022-08-30] MEDS: atenoloL 50 MG TABLET 100 MG PO (08:55)
[2022-08-30] MEDS: HEPARIN SODIUM 5,000 UNITS/ML VIAL 5000 UNITS SUB-Q (08:58)
[2022-08-30] MEDS: ASPIRIN 81 MG CHEWABLE TABLET PO (08:58)
[2022-08-30] MEDS: cefTRIAXone 2 GM in SODIUM CHLORIDE 0.9% IV 100 ML 200 ML IVPB (09:49)
[2022-08-30 11:00] LABS: Creatinine Urine 126.7 mg/dL; Total Protein Urine Random 31 mg/dL; Ur Ttl Prot Creatinine Ratio 0.24 mg/mg (0-0.20); Urea Random Urine 1010 MG/DL
--- NOTE | 2022-08-30 11:05 | PM.IMPN ---
Progress Note: A&P Assessment and Plan (1) Acute kidney injury superimposed on CKD: Code(s): N17.9 - Acute kidney failure, unspecified; N18.9 - Chronic kidney disease, unspecified Status: Acute Assessment and Plan: Acute on chronic disease. BUN 101, creatinine 3.1, GFR 20. Baseline BUN 28-30, creatinine 1.3-1.4, GFR 49, CKD stage 3 Continue IV hydration NS@75 mL/hour. Nephrology consulted and appreciate recommendations. hold lisinopril and hydrochlorothiazide. Hold nephrotoxic agents. Renal US - mild right hydronephrosis and 4.1 cm bladder mass versus malignancy Trend BMP. Monitor electrolytes. Monitor I/O. (2) Lung infiltrate: Code(s): R91.8 - Other nonspecific abnormal finding of lung field Status: Acute Assessment and Plan: CXR with right mid and lower lung infiltrate concerning for pneumonia or atelectasis Started on Rocephin 1 gram IV Q24 and Zithromax 500 mg IV Q24 hours, started 08/29/22 in ED s/p thoracentesis with cultures pending CT chest - concerning for hilar lymphadenopathy, bilateral lung nodules max 10 mm, and malignant pleural effusion. Adjust antibiotics per gram stain and pleural culture (3) Acidosis: Code(s): E87.20 - Acidosis, unspecified Status: Acute Assessment and Plan: TCO2 18, secondary to CKD Monitor BMP daily Nephrology consulting and appreciate recommendations. (4) Hypertension: Qualifiers: Hypertension type: primary hypertension Qualified Code(s): I10 - Essential (primary) hypertension Code(s): I10 - Essential (primary) hypertension Status: Chronic Assessment and Plan: Chronic, stable. Continue amlodipine and atenolol. Hold lisinopril and HCTZ while hydrating. (5) Lung nodules: Code(s): R91.8 - Other nonspecific abnormal finding of lung field Status: Acute Assessment and Plan: CXR with possible hilar mass on admission. CT chest concerning for bilateral lung nodules and hilar lymphadenopathy with malignant pleural effusiion right side, liver masses and peritoneal carcinamotosis US guided thoracentesis today with pleural fluid cytology, pH, gram stain, culture, AFB, total protein, albumin, amylase, glucose pending Oncology consulted and appreciate recommendations. (6) Liver mass: Code(s): R16.0 - Hepatomegaly, not elsewhere classified Status: Acute Assessment and Plan: Elevated AST 100, ALT 100, Alk phos 312, Tbili 0.5. Abd US with cirrhosis, hepatomegaly and ascites noted on CT scan US paracentesis ordered and to be evaluated by radiologist. (7) Generalized weakness: Code(s): R53.1 - Weakness Status: Acute Assessment and Plan: secondary to acute infection and/or malignant disease PT/OT evaluation. Continue medical management as above. Plan CODE STATUS: FULL CODE Disposition: Home with spouse when medically stable. Time Spent With Patient Time with patient: 25 - 35 minutes Subjective Date/time seen: 08/30/22 11:05 Patient lying in bed. He reports feeling better overall this morning. He does still feel fatigued and appetite is still poor. He denies cough, chest pain, shortness of breath, dyspnea on exertion, palpitations, or sputum. No abd pain, N/V/D or constipation. Review of Systems Review of Systems: All systems reviewed & are unremarkable except as noted in HPI and below Exam Narrative: General: No acute distress.?Well developed adult male lying in bed. No oxygen. Mental Status/Psych: Awake, alert and oriented to person, place and time with clear speech. Neutral mood and affect. Pleasant and cooperative. Skin: Skin fair, warm, dry and intact without rashes or lesions. No open wounds. Fair turgor.? HEENT: Normocephalic.Conjunctivae are clear. Sclera is non-icteric. Pupils equal and round. Grossly normal hearing. Oral mucosa moist. Neck: Supple without lymphadenopathy. No JVD. Heart: S1 and S2 r
[2022-08-30 11:09] LABS: Sodium Urine Random 49 meq/L
[2022-08-30 11:53] VITALS: BMI 26.9
[2022-08-30 12:01] LABS: INR 1.2; Prothrombin Time 14.5 Seconds (11.1-14.7)
[2022-08-30 12:02] LABS: Partial Thromboplastin Time 24.8 SECONDS (22.3-36.8)
[2022-08-30] MEDS: SODIUM CHLORIDE 0.9% IV 1,000 ML 75 ML IV CONT (12:45)
[2022-08-30 14:00] VITALS: BP 116/75; PULSE 72; RESP 20; TEMP 36.4; O2SAT 98
--- NOTE | 2022-08-30 14:42 | PCNSR ---
On 08/30/22, the student, Cam Light, provided care and completed [facility] documentation on this patient. I have reviewed the student's documentation and agree with the findings.
[2022-08-30 15:30] VITALS: BP 118/95; PULSE 72; RESP 18; O2SAT 94
[2022-08-30 15:31] VITALS: BP 118/104; PULSE 61; RESP 18; O2SAT 95
--- NOTE | 2022-08-30 15:32 | PDONCCN ---
HPI - Date of Consult Date/Time: 08/30/22 15:32 Requesting Physician: Johnathan Arredondo MD Primary Care Provider: Neetu Barrett NP - Consult Narrative Narrative: Tad Anderson is a 81 year old male 81 yo male with generalizrd symptome and new findings of lung and liver lesions Rt sided pleural effusion and ascited. Pt is in Radiology for diagnostic Thoracentesis. Review of Systems - Neurologic Reports system reviewed and no additional complaints, except as documented, Denies abnormal gait, Denies vertigo, Denies syncope, Denies focal weakness, Denies sensory deficit [facility] Medical History: Medical History (Last Reviewed 08/30/22 @ 06:29 by Jesse Mathis MD) 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 CKD (chronic kidney disease) stage 3, GFR 30-59 ml/min Essential (primary) hypertension Hearing loss of both ears History of 2019 novel coronavirus disease (COVID-19) Onset Date: ~01/2020 Hyperlipidemia Family History: Family History (Last Reviewed 08/30/22 @ 06:30 by Jesse Mathis MD) Mother Hypertension Family history of malignant neoplasm of breast in first degree relative Father Family history of pancreatic cancer Family history of heart disease in male family member before age 55 - Social History Social History: Social History (Last Reviewed 08/30/22 @ 06:30 by Jesse Mathis MD) Gender Identity: Gender identity (if verbalized by the patient): Male Sexual Orientation: Sexual Orientation (if Verbalized by the Patient): Straight or Heterosexual Alcohol Use: Alcohol intake: never Substance Use: Substance use: never Substance use type: does not use Others: Spiritual care concerns: No Agree to blood products: Yes Smoking Status: Smoking status: Former smoker Approximate Smoking End Date: 1969 Smoking Pack-years: Smoking packs per day: 1 Smoking cigarettes per day: 20.0 Years smoked: 4 Smoking pack-years: 4.00 Social Determinants of Health: Has the Lack of Transportation Kept You From Medical Appointments or From Getting Medications?: No Within the Past 12 Months, Were You Worried Whether Your Food Would Run Out Before You Got Money to Buy More?: Never True What is Your Housing Situation Today?: I Have Housing Are You Worried That in the Next 2 Months, You May Not Have Your Own Housing to Live In?: No Do You Have Trouble Paying Your Heating Or Electricity Bill?: No Do You Have Trouble Paying For Medicines?: No Are You Currently Unemployed and Looking for Work?: No Highest Level of Education Completed: Bachelor's Degree Do You Have Trouble With Childcare or the Care of a Family Member?: No Exam - Vital Signs Vital Signs - 24 hr 08/29/22 17:40 08/29/22 21:01 08/29/22 21:33 Temperature 36.1 C L 36.7 C Pulse Rate 82 74 80 Respiratory Rate 18 21 H 20 Blood Pressure 119/66 122/78 132/74 Pulse Oximetry 99 98 98 Oxygen Delivery 08/29/22 21:48 08/30/22 06:00 08/30/22 08:00 Temperature 36.7 C Pulse Rate 80 Respiratory Rate 18 Blood Pressure 120/76 Pulse Oximetry 98 Oxygen Delivery Room Air Room Air 08/30/22 14:00 08/30/22 15:30 08/30/22 15:31 Temperature 36.4 C Pulse Rate 72 72 61 Respiratory Rate 20 18 18 Blood Pressure 116/75 118/95 H 118/104 H Pulse Oximetry 98 94 95 Oxygen Delivery - Lab Results Laboratory Last Values WBC 11.7 K/mm3 (4.5-10.0) H 08/30/22 01:28 RBC 3.70 M/mm3 (4.6-6.20) L 08/30/22 01:28 Hgb 10.9 g/dL (14.0-18.0) L 08/30/22 01:28 Hct 32.6 % (42.0-52.0) L 08/30/22 01:28 MCV 88.1 fl (80-100) 08/30/22 01:28 MCH 29.5 pg (26-34) 08/30/22 01:28 MCHC 33.4 g/dl (32-36) 08/30/22 01:28 RDW 13.0 % (11.5-14.5) 08/30/22 01:28 Plt Count 330 k/mm3 (150-375) 08/30/22 01:28 MPV 8.3 fl (7.4-10.4) 08/30/22 01:28 Immature Gran % (Auto) 1.3 % (0-0.5)
[2022-08-30 15:41] LABS: pH Pleural Fluid 7.263 (7.210-7.500)
--- NOTE | 2022-08-30 16:21 | PC.NURSE ---
assessment clinician done.
[2022-08-30 16:46] LABS: Appearance Pleural Fluid Hazy (Clear); Color Pleural Fluid Red (Colorless); Nucleated Cell Pleural Fluid 684 /uL (0-1000); Pleural fluid source Pleural fluid
[2022-08-30 16:47] LABS: Lymphocytes Pleural Fluid 78 %; Macrophages Pleural Fluid 2 %; Mesothelial Cells Pleural Flui 2 %; Monocytes Pleural Fluid 16 %; Neutrophils Pleural Fluid 2 % (0-25); RBC Pleural Fluid 19255 /uL (0-0)
[2022-08-30 19:58] LABS: Carcinoembryonic Antigen 1.5 ng/mL (0.0-3.0)
[2022-08-30 20:25] VITALS: BP 109/78; PULSE 67; RESP 20; TEMP 36.3; O2SAT 97
[2022-08-30 20:34] LABS: Prostate Specific Antigen 2.6 ng/mL (< OR = 4.0)
[2022-08-31 04:48] VITALS: BP 113/72; PULSE 70; RESP 18; TEMP 37.2; O2SAT 97
[2022-08-31] MEDS: SODIUM CHLORIDE 0.9% IV 1,000 ML 75 ML IV CONT ×2 (05:15→16:15)
[2022-08-31 05:43] LABS: Basophils Percent Auto 0.3 % (0.2-1.2); Eosinophils Percent Auto 0.3 % (0-4.4); Hematocrit 32.3 % (42.0-52.0); Hemoglobin 10.7 g/dL (14.0-18.0); Immature Granulocyte Absolute 0.18 K/mm3 (0.00-0.031); Immature Granulocyte Percent A 1.6 % (0-0.5); Lymphocytes Absolute Auto 1.96 K/mm3 (0.9-3.2); Lymphocytes Percent Auto 17.3 % (18.3-44.2); Mean Corpuscular HGB Conc 33.1 g/dl (32-36); Mean Corpuscular Hemoglobin 29.7 pg (26-34); Mean Corpuscular Volume 89.7 fl (80-100); Mean Platelet Volume 8.5 fl (7.4-10.4); Monocytes Absolute Auto 0.8 K/mm3 (0.1-0.6); Monocytes Percent Auto 7.3 % (2.6-8.5); Neutrophils Absolute Auto 8.3 K/mm3 (1.3-6.7); Neutrophils Percent Auto 73.2 % (45.5-73.1); Platelet Count Result 328 k/mm3 (150-375); Red Cell Distribution Width 13.2 % (11.5-14.5); White Blood Count 11.3 K/mm3 (4.5-10.0)
[2022-08-31 05:52] LABS: Albumin Level 2.8 g/dL (3.5-5.1); Anion Gap 14 mmol/L (8-16); Blood Urea Nitrogen 90 mg/dL (9-20); Calcium 8.3 mg/dL (8.4-10.2); Carbon Dioxide 18 mmol/L (22-30); Chloride 102 mmol/L (98-107); Estimated CRCL calculation 23 ml/min; Estimated Glomerular Filt Rate 24; Glucose 100 mg/dL (65-110); Potassium 4.3 mmol/L (3.4-5.0); Sodium 134 mmol/L (137-145)
[2022-08-31 08:22] VITALS: PULSE 74
[2022-08-31] MEDS: atenoloL 50 MG TABLET 100 MG PO (08:22)
[2022-08-31] MEDS: cefTRIAXone 2 GM in SODIUM CHLORIDE 0.9% IV 100 ML 200 ML IVPB (08:22)
[2022-08-31] MEDS: amLODIPine BESYLATE 5 MG TABLET 10 MG PO (08:22)
--- NOTE | 2022-08-31 09:10 | PM.IMPN ---
Progress Note: A&P Assessment and Plan (1) Acute kidney injury superimposed on CKD: Code(s): N17.9 - Acute kidney failure, unspecified; N18.9 - Chronic kidney disease, unspecified Status: Acute Assessment and Plan: Acute on chronic disease. BUN 101, creatinine 3.1, GFR 20. Baseline BUN 28-30, creatinine 1.3-1.4, GFR 49, CKD stage 3 Continue IV hydration NS@75 mL/hour. Nephrology consulted and appreciate recommendations. hold lisinopril and hydrochlorothiazide. Hold nephrotoxic agents. Renal US - mild right hydronephrosis and 4.1 cm bladder mass versus clot Trend BMP. Monitor electrolytes. Monitor I/O. 08/31/22 BUN 90, creatinine 2.6, GFR 24. Continue IV fluids and management per Nephrology (2) Lung infiltrate: Code(s): R91.8 - Other nonspecific abnormal finding of lung field Status: Acute Assessment and Plan: CXR with right mid and lower lung infiltrate concerning for pneumonia or atelectasis Started on Rocephin 1 gram IV Q24 and Zithromax 500 mg IV Q24 hours, started 08/29/22 in ED s/p thoracentesis with cultures pending CT chest - concerning for hilar lymphadenopathy, bilateral lung nodules max 10 mm, and malignant pleural effusion. Adjust antibiotics per gram stain and pleural culture 08/31/22 antibiotic day 3, transition to oral azithromycin 250 mg daily x 3 days and cefuroxime 500 mg daily x4 days (3) Acidosis: Code(s): E87.20 - Acidosis, unspecified Status: Acute Assessment and Plan: TCO2 18, secondary to CKD Monitor BMP daily Nephrology consulting and appreciate recommendations. (4) Hypertension: Qualifiers: Hypertension type: primary hypertension Qualified Code(s): I10 - Essential (primary) hypertension Code(s): I10 - Essential (primary) hypertension Status: Chronic Assessment and Plan: Chronic, stable. Continue amlodipine and atenolol. Hold lisinopril and HCTZ while hydrating. (5) Lung nodules: Code(s): R91.8 - Other nonspecific abnormal finding of lung field Status: Acute Assessment and Plan: CXR with possible hilar mass on admission. CT chest concerning for bilateral lung nodules and hilar lymphadenopathy with malignant pleural effusion right side, liver masses and peritoneal carcinamotosis 08/30/22 US guided thoracentesis with -1 liter fluid removed, send fluid for cytology, pH, gram stain, culture, AFB, total protein, albumin, amylase, glucose pending Oncology consulted and appreciate recommendations. (6) Liver mass: Code(s): R16.0 - Hepatomegaly, not elsewhere classified Status: Acute Assessment and Plan: Elevated AST 100, ALT 100, Alk phos 312, Tbili 0.5. Abd US with cirrhosis, hepatomegaly and ascites noted on CT scan 08/30/22 US paracentesis deferred due to limited fluid. (7) Generalized weakness: Code(s): R53.1 - Weakness Status: Acute Assessment and Plan: secondary to acute infection and/or malignant disease PT/OT evaluation. Continue medical management as above. (8) Bladder mass: Code(s): N32.89 - Other specified disorders of bladder Status: Acute Assessment and Plan: Noted on US, hyperechoic bladder mass 4.1 cm Consult Urology and appreciate recommendations. 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 LFTs elevated on admission. No jaundice. Avoid hepatotoxic agents. Plan CODE STATUS: FULL CODE Disposition: Home with spouse when medically stable. Time Spent With Patient Time with patient: 15 - 25 minutes Subjective Date/time seen: 08/31/22 09:10 Interval history: Patient found sitting up in the chair. He denies c/o chest pain, dyspnea, dizziness, sputum
--- NOTE | 2022-08-31 10:23 | PM.PNNEP ---
Progress Note: A&P Assessment and Plan (1) Acute kidney injury superimposed on CKD: Code(s): N17.9 - Acute kidney failure, unspecified; N18.9 - Chronic kidney disease, unspecified Status: Acute Assessment and Plan: Tad has chronic kidney disease. His creatinine has been relatively stable at about 1.3 since 2019. He could have hypertensive nephrosclerosis because he has had hypertension for a long time. he has hyperlipidemia and along with the high blood pressure this puts him at higher risk for having some small-vessel vascular disease in the kidneys. On the other hand the creatinine seemed to worsen in 2019 and that is when he had COVID so he could have had some effect on the kidneys by the COVID. There other causes of chronic kidney disease as well including Interstitial nephritis, glomerulonephritis but these are less likely in this clinical scenario. Obstruction is always a possibility. The patient has acute kidney injury as well. renal ultrasound shows a bladder mass and mild right hydronephrosis. Fractional excretion of urea shows pre renal azotemia. Urine protein to creatinine ratio was 240 UA shows some red cells and some white cells. CK is normal Etiology of renal failure is probably a combination of dehydration and pneumonia. The right hydronephrosis is probably not contributing to his kidney issues, but considering his bladder mass we will get Urology on board. Will continue hydration and watch the creatinine as we go. (2) Lung infiltrate: Code(s): R91.8 - Other nonspecific abnormal finding of lung field Status: Acute Assessment and Plan: the patient has infiltrate on his chest x-ray. He was diagnosed with pneumonia and is getting some antibiotics. (3) Hypertension: Qualifiers: Hypertension type: primary hypertension Qualified Code(s): I10 - Essential (primary) hypertension Code(s): I10 - Essential (primary) hypertension Status: Chronic Assessment and Plan: Patient has hypertension. His blood pressure is well controlled right now. (4) Acidosis: Code(s): E87.20 - Acidosis, unspecified Status: Acute Assessment and Plan: His bicarbonate level is a little bit on the low side. This may be due to the renal insufficiency with low production of ammonia. will give oral bicarb Subjective Date/time seen: 08/31/22 10:23 Interval history: Tad is feeling a little better today. No chest pain or shortness of breath no swelling Review of Systems Cardiovascular: Cardiovascular: Reports no additional cardiovascular complaints Respiratory: Respiratory: Reports no additional respiratory complaints Gastrointestinal: Gastrointestinal: Reports no additional gastrointestinal complaints Genitourinary: Genitourinary: Reports no additional male genitourinary complaints Exam Narrative: WDWN in NAD skin no rash head ncat lungs clear cor reg no rub abd BS+ nontender and soft ext no edema. Objective Data Vital Signs Vital Signs: Vital Signs - 24 hr 08/30/22 14:00 08/30/22 15:30 08/30/22 15:31 Temperature 36.4 C Pulse Rate 72 72 61 Respiratory Rate 20 18 18 Blood Pressure 116/75 118/95 H 118/104 H Pulse Oximetry 98 94 95 Oxygen Delivery 08/30/22 20:25 08/31/22 04:48 08/31/22 08:22 Temperature 36.3 C L 37.2 C Pulse Rate 67 70 74 Respiratory Rate 20 18 Blood Pressure 109/78 113/72 Pulse Oximetry 97 97 Oxygen Delivery 08/31/22 08:00 08/31/22 09:52 Temperature Pulse Rate Respiratory Rate Blood Pressure Pulse Oximetry Oxygen Delivery Room Air Room Air Intake/Output Intake/Output: Intake & Output 08/28/22 08/29/22 08/30/22 08/31/22 23:59 23:59 23:59 23:59 Intake Total 1300 1590 1540 Output Total 2300 800 Balance 1300 -710 740 Meds/Results Medications: Active Medications Generic Name Dose Route Start Last Admin
[2022-08-31 11:51] LABS: HAV RESULT Negative (Negative); Hepatitis B Core IgM Result Negative (Negative); Hepatitis B Surface Antigen Negative (Negative)
[2022-08-31 11:56] LABS: Hepatitis C Virus Antibody Negative (Negative)
--- NOTE | 2022-08-31 13:14 | WPDURCON ---
Assessment and Plan Assessment and plan (1) Bladder mass: Code(s): N32.89 - Other specified disorders of bladder Status: Acute Assessment and Plan: Cysto, possible clot evacuation, possible TURBT Urology Consult Note HPI Date Seen: 08/31/22 Requesting Physician: Johnathan Arredondo MD Primary Care Provider: Neetu Barrett NP Consult Narrative Narrative: Tad Anderson is a 81 year old male, previously unknown to our practice and was surprisingly little urological history from and his age, admitted with fatigue and generalized weakness. During the course of this evaluation, in addition to other things, he has been found to have acute kidney injury with an admitting serum creatinine of 3.1. Renal ultrasonography shows a possible mass or clot in his bladder and scant right hydronephrosis. Patient has minimal obstructive voiding symptoms and denies any irritability with urination. He denies any history of urinary tract infection or hematuria. He also has been found to have a indeterminate mass in his liver and pleural effusions. He is status post thoracentesis. 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 CKD (chronic kidney disease) stage 3, GFR 30-59 ml/min Essential (primary) hypertension Hearing loss of both ears History of 2019 novel coronavirus disease (COVID-19) (~01/2020) Hyperlipidemia Family History Family History Mother Hypertension Family history of malignant neoplasm of breast in first degree relative Father Family history of pancreatic cancer Family history of heart disease in male family member before age 55 Social History Social History Smoking packs per day: 1 Smoking cigarettes per day: 20.0 Years smoked: 4 Smoking pack-years: 4.00 Smoking status: Former smoker Alcohol intake: never Substance use: never Substance use type: does not use Has the Lack of Transportation Kept You From Medical Appointments or From Getting Medications?: No Within the Past 12 Months, Were You Worried Whether Your Food Would Run Out Before You Got Money to Buy More?: Never True What is Your Housing Situation Today?: I Have Housing Are You Worried That in the Next 2 Months, You May Not Have Your Own Housing to Live In?: No Do You Have Trouble Paying Your Heating Or Electricity Bill?: No Do You Have Trouble Paying For Medicines?: No Are You Currently Unemployed and Looking for Work?: No Highest Level of Education Completed: Bachelor's Degree Do You Have Trouble With Childcare or the Care of a Family Member?: No Gender identity (if verbalized by the patient): Male Sexual Orientation (if Verbalized by the Patient): Straight or Heterosexual Spiritual care concerns: No Agree to blood products: Yes Meds Home Medications and Allergies Home Medications Medication Instructions Recorded Confirmed Type aspirin 81 mg chewable tablet 81 mg PO DAILY 11/12/19 08/29/22 History (Raquel Chewable Low Dose Aspirin) amlodipine 10 mg tablet 10 mg PO DAILY #90 tabs 05/22/22 08/29/22 Rx atenolol 100 mg tablet 100 mg PO DAILY #90 tabs 05/22/22 08/29/22 Rx lisinopril 20 2 tablet PO DAILY #180 tabs 05/22/22 08/29/22 Rx mg-hydrochlorothiazide 12.5 mg tablet Allergies Allergy/AdvReac Type Severity Reaction Status Date / Time No Known Allergies Allergy Verified 08/29/22 18:21 Vital Signs Vi
[2022-08-31 14:00] VITALS: BP 110/60; PULSE 54; RESP 18; TEMP 36.4; O2SAT 95
--- NOTE | 2022-08-31 15:29 | PDONCFUV ---
Follow Up Note - Date/Time 08/31/22 15:29 - Interval History Urologic findings appreciated -pt for cystoscopy in AM Bladder likely source. Await Cytology Normal CEA noted H&P - Exam - Vital Signs Vital Signs - 24 hr 08/30/22 15:30 08/30/22 15:31 08/30/22 20:25 Temperature 36.3 C L Pulse Rate 72 61 67 Respiratory Rate 18 18 20 Blood Pressure 118/95 H 118/104 H 109/78 Pulse Oximetry 94 95 97 Oxygen Delivery 08/31/22 04:48 08/31/22 08:22 08/31/22 08:00 Temperature 37.2 C Pulse Rate 70 74 Respiratory Rate 18 Blood Pressure 113/72 Pulse Oximetry 97 Oxygen Delivery Room Air 08/31/22 09:52 08/31/22 14:00 Temperature 36.4 C Pulse Rate 54 L Respiratory Rate 18 Blood Pressure 110/60 Pulse Oximetry 95 Oxygen Delivery Room Air - Lab Results Laboratory Last Values WBC 11.3 K/mm3 (4.5-10.0) H 08/31/22 05:26 RBC 3.60 M/mm3 (4.6-6.20) L 08/31/22 05:26 Hgb 10.7 g/dL (14.0-18.0) L 08/31/22 05:26 Hct 32.3 % (42.0-52.0) L 08/31/22 05:26 MCV 89.7 fl (80-100) 08/31/22 05:26 MCH 29.7 pg (26-34) 08/31/22 05:26 MCHC 33.1 g/dl (32-36) 08/31/22 05:26 RDW 13.2 % (11.5-14.5) 08/31/22 05:26 Plt Count 328 k/mm3 (150-375) 08/31/22 05:26 MPV 8.5 fl (7.4-10.4) 08/31/22 05:26 Immature Gran % (Auto) 1.6 % (0-0.5) H 08/31/22 05:26 Neut % (Auto) 73.2 % (45.5-73.1) H 08/31/22 05:26 Lymph % (Auto) 17.3 % (18.3-44.2) L 08/31/22 05:26 [place] % (Auto) 7.3 % (2.6-8.5) 08/31/22 05:26 Eos % (Auto) 0.3 % (0-4.4) 08/31/22 05:26 Baso % (Auto) 0.3 % (0.2-1.2) 08/31/22 05:26 Lymph # (Auto) 1.96 K/mm3 (0.9-3.2) 08/31/22 05:26 [place] # (Auto) 0.8 K/mm3 (0.1-0.6) H 08/31/22 05:26 Eos # (Auto) 0.0 K/mm3 (0-0.3) 08/31/22 05:26 Baso # (Auto) 0.0 K/mm3 (0.0-0.1) 08/31/22 05:26 Abs Immat Gran (auto) 0.18 K/mm3 (0.00-0.031) H 08/31/22 05:26 Absolute Neuts (auto) 8.3 K/mm3 (1.3-6.7) H 08/31/22 05:26 Absolute Nucleated RBC 0.0 K/mm3 (0.0-0.012) 08/31/22 05:26 Nucleated RBC % 0.0 % (0.0-0.2) 08/31/22 05:26 PT 14.5 Seconds (11.1-14.7) 08/30/22 11:44 INR 1.2 08/30/22 11:44 APTT Cancelled 08/30/22 11:46 Sodium 134 mmol/L (137-145) L 08/31/22 05:26 Potassium 4.3 mmol/L (3.4-5.0) 08/31/22 05:26 Chloride 102 mmol/L (98-107) 08/31/22 05:26 Carbon Dioxide 18 mmol/L (22-30) L 08/31/22 05:26 Anion Gap 14 mmol/L (8-16) 08/31/22 05:26 BUN 90 mg/dL (9-20) H 08/31/22 05:26 Creatinine 2.60 mg/dL (0.7-1.3) H 08/31/22 05:26 Estim Creat Clear Calc 23 ml/min 10/27/22 05:26 Estimated GFR 24 (59-) L 08/31/22 05:26 Glucose 100 mg/dL (65-110) 08/31/22 05:26 Calcium 8.3 mg/dL (8.4-10.2) L 08/31/22 05:26 Phosphorus 4.0 mg/dL (2.5-4.5) 08/31/22 05:26 Magnesium 2.3 mg/dL (1.6-2.3) 08/30/22 01:28 Total Bilirubin 0.5 mg/dL (0.2-1.3) 08/29/22 17:53 AST 100 U/L (17-59) H 08/29/22 17:53 ALT 100 U/L (6-50) H 08/29/22 17:53 Alkaline Phosphatase 312 U/L (38-126) H 08/29/22 17:53 Total Creatine Kinase 25 U/L (55-170) L 08/30/22 01:21 Total Protein 8.0 g/dL (6.3-8.2) 08/29/22 17:53 Albumin 2.8 g/dL (3.5-5.1) L 08/31/22 05:26 Carcinoembryonic Ag 1.5 ng/mL (0.0-3.0) 08/30/22 16:19 Prostate Specific Ag 2.6 ng/mL (< OR = 4.0) 08/30/22 11:44 Urine Color Lia (Yellow) 08/30/22 05:49 Urine Appearance Cloudy (Clear) H 08/30/22 05:49 Urine pH 5.0 (5.0-9.0) 08/30/22 05:49 Ur Specific [place] 1.016 (1.001-1.035) 08/30/22 05:49 Urine Protein 1+ mg/dL (Negative) H 08/30/22 05:49 Urine Glucose (UA) Negative mg/dL (Negative) 08/30/22 05:49 Urine Ketones Negative mg/dL (Negative) 08/30/22 05:49 Ur Blood (Man) 3+ (Negative) H 08/30/22 05:49 Ur
[2022-08-31] MEDS: SODIUM BICARBONATE TAB 650 MG TABLET 1300 MG PO ×2 (16:10→16:15)
[2022-08-31] MEDS: AZITHROMYCIN 250 MG TABLET PO (16:11)
[2022-08-31] MEDS: SACCHAROMYCES BOULARDII 250 MG CAPSULE PO (17:29)
[2022-08-31 20:24] VITALS: BP 109/65; PULSE 76; RESP 18; TEMP 36.6; O2SAT 95
[2022-09-01] VITALS (14 sets, daily range): BP systolic 95–124; BP diastolic 61–78; PULSE 63–99; RESP 16–22; TEMP 36–36.6; O2SAT 91–96
[2022-09-01] MEDS: SODIUM CHLORIDE 0.9% IV 1,000 ML 75 ML IV CONT (05:51)
[2022-09-01 05:53] LABS: Basophils Percent Auto 0.2 % (0.2-1.2); Eosinophils Percent Auto 0.3 % (0-4.4); Hematocrit 32.5 % (42.0-52.0); Hemoglobin 10.9 g/dL (14.0-18.0); Immature Granulocyte Absolute 0.12 K/mm3 (0.00-0.031); Lymphocytes Absolute Auto 1.67 K/mm3 (0.9-3.2); Lymphocytes Percent Auto 14.5 % (18.3-44.2); Mean Corpuscular HGB Conc 33.5 g/dl (32-36); Mean Corpuscular Hemoglobin 28.8 pg (26-34); Mean Platelet Volume 8.4 fl (7.4-10.4); Monocytes Absolute Auto 0.8 K/mm3 (0.1-0.6); Monocytes Percent Auto 7.1 % (2.6-8.5); Neutrophils Absolute Auto 8.9 K/mm3 (1.3-6.7); Neutrophils Percent Auto 76.9 % (45.5-73.1); Platelet Count Result 305 k/mm3 (150-375); Red Blood Count 3.78 M/mm3 (4.6-6.20); Red Cell Distribution Width 13.2 % (11.5-14.5); White Blood Count 11.5 K/mm3 (4.5-10.0)
[2022-09-01 06:11] LABS: Alanine Aminotransferase 65 U/L (6-50); Albumin Level 2.9 g/dL (3.5-5.1); Alkaline Phosphatase 261 U/L (38-126); Anion Gap 8 mmol/L (8-16); Aspartate Amino Transferase 65 U/L (17-59); Bilirubin,Total 0.4 mg/dL (0.2-1.3); Blood Urea Nitrogen 90 mg/dL (9-20); Calcium 8.5 mg/dL (8.4-10.2); Carbon Dioxide 19 mmol/L (22-30); Chloride 106 mmol/L (98-107); Estimated CRCL calculation 22 ml/min; Estimated Glomerular Filt Rate 23; Glucose 113 mg/dL (65-110); Potassium 4.5 mmol/L (3.4-5.0); Sodium 133 mmol/L (137-145)
--- NOTE | 2022-09-01 07:01 | WPDHPUPDATE1 ---
History and Physical Update Update Date/Time: 09/01/22 07:01 History and Physical has been reviewed, including an updated exam of the patient. There are NO changes in the patient's condition. Risks, benefits, and alternatives have been discussed and questions answered. Patient agrees to proceed with procedure.
--- NOTE | 2022-09-01 07:02 | WPDHPUPDATE1 ---
History and Physical Update Update Date/Time: 09/01/22 07:02 History and Physical has been reviewed, including an updated exam of the patient. There are NO changes in the patient's condition. Risks, benefits, and alternatives have been discussed and questions answered. Patient agrees to proceed with procedure.
[2022-09-01] MEDS: amLODIPine BESYLATE 5 MG TABLET 10 MG PO (08:28)
[2022-09-01] MEDS: SODIUM BICARBONATE TAB 650 MG TABLET 1300 MG PO ×2 (08:28→16:21)
[2022-09-01] MEDS: SACCHAROMYCES BOULARDII 250 MG CAPSULE PO ×2 (08:28→16:21)
[2022-09-01] MEDS: CEFUROXIME AXETIL 250 MG TABLET 500 MG PO (08:29)
[2022-09-01] MEDS: atenoloL 50 MG TABLET 100 MG PO (08:29)
[2022-09-01] MEDS: AZITHROMYCIN 250 MG TABLET PO (08:29)
[2022-09-01] MEDS: LACTATED RINGERS 1,000 ML 30 ML IV CONT (10:30)
[2022-09-01] MEDS: ONDANSETRON INJ 4 MG/2 ML VIAL IV PUSH (10:44)
--- NOTE | 2022-09-01 10:46 | WPDANESEPPF ---
Anes - Initial Pre Proc Eval Procedure: Operation Date: 09/01/22 12:00 Proposed Procedures p Cystoscopy, Evacuation Bladder Clots - Tyree Ojeda MD s Right Retrograde Pyelogram - Tyree Ojeda MD Date/Time: 09/01/22 10:46 Surgeon: Johnathan Arredondo MD Pre Op Diagnosis: Kidney Failure Patient Data Age: 81 Gender: M Height: 1.83 m Weight: 89.9 kg Last Vital Signs Temp 36.4 C 09/01/22 10:34 Pulse 69 09/01/22 10:34 Resp 16 09/01/22 10:34 BP 111/78 09/01/22 10:34 Pulse Ox 91 09/01/22 10:34 O2 Del Method Room Air 09/01/22 10:34 Allergies Allergy/AdvReac Type Severity Reaction Status Date / Time No Known Allergies Allergy Verified 09/01/22 10:13 Home Medications Medication Instructions Recorded Confirmed Type aspirin 81 mg chewable tablet 81 mg PO DAILY 11/12/19 08/29/22 History (Raquel Chewable Low Dose Aspirin) amlodipine 10 mg tablet 10 mg PO DAILY #90 tabs 05/22/22 08/29/22 Rx atenolol 100 mg tablet 100 mg PO DAILY #90 tabs 05/22/22 08/29/22 Rx lisinopril 20 2 tablet PO DAILY #180 tabs 05/22/22 08/29/22 Rx mg-hydrochlorothiazide 12.5 mg tablet Laboratory Tests 08/31/22 09/01/22 09/01/22 05:26 05:44 05:44 WBC 11.5 K/mm3 H K/mm3 (4.5-10.0) RBC 3.78 M/mm3 L M/mm3 (4.6-6.20) Hgb 10.9 g/dL L g/dL (14.0-18.0) Hct 32.5 % L % (42.0-52.0) MCV 86.0 fl fl (80-100) MCH 28.8 pg pg (26-34) MCHC 33.5 g/dl g/dl (32-36) RDW 13.2 % % (11.5-14.5) Plt Count 305 k/mm3 k/mm3 (150-375) MPV 8.4 fl fl (7.4-10.4) Immature Gran % (Auto) 1.0 % H % (0-0.5) Neut % (Auto) 76.9 % H % (45.5-73.1) Lymph % (Auto) 14.5 % L % (18.3-44.2) [place] % (Auto) 7.1 % % (2.6-8.5) Eos % (Auto) 0.3 % % (0-4.4) Baso % (Auto) 0.2 % % (0.2-1.2) Lymph # (Auto) 1.67 K/mm3 K/mm3 (0.9-3.2) [place] # (Auto) 0.8 K/mm3 H K/mm3 (0.1-0.6) Eos # (Auto) 0.0 K/mm3 K/mm3 (0-0.3) Baso # (Auto) 0.0 K/mm3 K/mm3 (0.0-0.1) Abs Immat Gran (auto) 0.12 K/mm3 H K/mm3 (0.00-0.031) Absolute Neuts (auto) 8.9 K/mm3 H K/mm3 (1.3-6.7) Absolute Nucleated RBC 0.0 K/mm3 K/mm3 (0.0-0.012) Nucleated RBC % 0.0 % % (0.0-0.2) Sodium 133 mmol/L L mmol/L (137-145) Potassium 4.5 mmol/L mmol/L (3.4-5.0) Chloride 106 mmol/L mmol/L (98-107) Carbon Dioxide 19 mmol/L L mmol/L (22-30) Anion Gap 8 mmol/L mmol/L (8-16) BUN 90 mg/dL H mg/dL (9-20) Creatinine 2.70 mg/dL H mg/dL (0.7-1.3) Estim Creat Clear Calc 22 ml/min ml/min Estimated GFR 23 L (59 - ) Glucose 113 mg/dL H mg/dL (65-110) Calcium 8.5 mg/dL mg/dL (8.4-10.2) Total Bilirubin 0.4 mg/dL mg/dL (0.2-1.3) AST 65 U/L H U/L (17-59) ALT 65 U/L H U/L (6-50) Alkaline Phosphatase 261 U/L H U/L (38-126) Total Protein 6.0 g/dL L g/dL (6.3-8.2) Albumin 2.9 g/dL L g/dL (3.5-5.1) Hepatitis A IgM Ab Negative (Negative) Hep Bs Antigen Negative (Negative) Hep B Core IgM Ab Negative (Negative) Hepatitis C Ab Screen Negative (Negative) Patient hx anesthesia problems: none Family hx anesthesia problems: none Results Review: All pre-operative results and documents have been reviewed as part of the pre-operative evaluation. 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
--- NOTE | 2022-09-01 11:18 | PM.PNNEP ---
Progress Note: A&P Assessment and Plan (1) Acute kidney injury superimposed on CKD: Code(s): N17.9 - Acute kidney failure, unspecified; N18.9 - Chronic kidney disease, unspecified Status: Acute Assessment and Plan: Tad has chronic kidney disease. His creatinine has been relatively stable at about 1.3 since 2019. He could have hypertensive nephrosclerosis because he has had hypertension for a long time. he has hyperlipidemia and along with the high blood pressure this puts him at higher risk for having some small-vessel vascular disease in the kidneys. On the other hand the creatinine seemed to worsen in 2019 and that is when he had COVID so he could have had some effect on the kidneys by the COVID. There other causes of chronic kidney disease as well including Interstitial nephritis, glomerulonephritis but these are less likely in this clinical scenario. The patient has acute kidney injury as well. renal ultrasound shows a bladder mass and mild right hydronephrosis. Fractional excretion of urea shows pre renal azotemia. Urine protein to creatinine ratio was 240 UA shows some red cells and some white cells. CK is normal Etiology of renal failure is probably a combination of dehydration and pneumonia. The right hydronephrosis is probably not contributing to his kidney issues, but considering his bladder mass we will get Urology on board. he is getting hydration but his creatinine is not improving. The delayed improvement could be due to ATN because of the pneumonia or possibly the hydronephrosis is playing a big role then I suspect. Just in case will get serology an immunofixation to see if there might be something else going on. He does have pyuria so will culture the urine. Will continue hydration and watch the creatinine as we go. (2) Lung infiltrate: Code(s): R91.8 - Other nonspecific abnormal finding of lung field Status: Acute Assessment and Plan: the patient has infiltrate on his chest x-ray. He was diagnosed with pneumonia and is getting some antibiotics. (3) Hypertension: Qualifiers: Hypertension type: primary hypertension Qualified Code(s): I10 - Essential (primary) hypertension Code(s): I10 - Essential (primary) hypertension Status: Chronic Assessment and Plan: Patient has hypertension. His blood pressure is under good control (4) Acidosis: Code(s): E87.20 - Acidosis, unspecified Status: Acute Assessment and Plan: His bicarbonate level is a little bit on the low side. This may be due to the renal insufficiency with low production of ammonia. his bicarbonate levels slowly improving. Subjective Date/time seen: 09/01/22 11:18 Interval history: Tad is feeling a little better today. he does not have any appetite. He is NPO for cystoscopy today. Exam Narrative: WDWN in NAD skin no rash head ncat lungs clear cor reg no rub abd BS+ nontender and soft ext no edema. Objective Data Vital Signs Vital Signs: Vital Signs - 24 hr 08/31/22 14:00 08/31/22 20:24 09/01/22 04:53 Temperature 36.4 C 36.6 C 36.4 C Pulse Rate 54 L 76 99 Respiratory Rate 18 18 20 Blood Pressure 110/60 109/65 106/62 Pulse Oximetry 95 95 95 Oxygen Delivery 09/01/22 08:29 09/01/22 10:34 09/01/22 08:00 Temperature 36.4 C Pulse Rate 99 69 Respiratory Rate 16 Blood Pressure 111/78 Pulse Oximetry 91 Oxygen Delivery Room Air Room Air Intake/Output Intake/Output: Intake & Output 08/29/22 08/30/22 08/31/22 09/01/22 23:59 23:59 23:59 23:59 Intake Total 1300 1590 3620 1350 Output Total 2300 1300 Balance 1300 -710 2320 1350 Meds/Results Medications: Active Medications Generic Name Dose Route Start Last Admin Trade Name Freq PRN Reason Stop Dose Admin Amlodipine Besylate 10 mg 08/30/22 09:00 09/01/22 08:28 Amlodipine Besylate 5 Mg Tablet
--- NOTE | 2022-09-01 12:42 | W.PM.PROC2 ---
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 Cystoscopy is undertaken with a 24 F resectoscope. There was no urethral stricture. Inspection of the bladder immediately reveals what appears to be a very poorly differentiated, sessile neoplasm involving much of the posterior and right lateral bladder wall and bladder neck circumferentially. This is likely consistent with a and muscle invasive urothelial cancer. I resected a moderate amount of this for diagnostic purposes. I made an exhaustive attempt identify the right ureteral orifice without success. Chips were evacuated the resected site was cauterized with the rollerball electrode. 20F 3-way [place] catheter was placed to continuous irrigation at the termination. Urine Output 500 Drains Yes Packing No Pathology Yes Complications No immediate complications
[2022-09-01] MEDS: fentaNYL CITRATE INJ (*CRX) 100 MCG/2 ML VIAL 25 MCG IV PUSH (13:10)
--- NOTE | 2022-09-01 16:04 | PM.IMPN ---
Progress Note: A&P Assessment and Plan (1) Acute kidney injury superimposed on CKD: Code(s): N17.9 - Acute kidney failure, unspecified; N18.9 - Chronic kidney disease, unspecified Status: Acute Assessment and Plan: Acute on chronic disease. BUN 101, creatinine 3.1, GFR 20. Baseline BUN 28-30, creatinine 1.3-1.4, GFR 49, CKD stage 3 Continue IV hydration NS@75 mL/hour. Nephrology consulted and appreciate recommendations. hold lisinopril and hydrochlorothiazide. Hold nephrotoxic agents. Renal US - mild right hydronephrosis and 4.1 cm bladder mass versus clot Trend BMP. Monitor electrolytes. Monitor I/O. 08/31/22 BUN 90, creatinine 2.6, GFR 24. Continue IV fluids and management per Nephrology 09/01/22 BUN 90, creatinine 2.7, GFR 23. Continue IV fluids. Patient having retrograde pyelogram today. Nephrology following. Repeat labs in am. (2) Lung infiltrate: Code(s): R91.8 - Other nonspecific abnormal finding of lung field Status: Acute Assessment and Plan: CXR with right mid and lower lung infiltrate concerning for pneumonia or atelectasis Started on Rocephin 1 gram IV Q24 and Zithromax 500 mg IV Q24 hours, started 08/29/22 in ED s/p thoracentesis with cultures pending CT chest - concerning for hilar lymphadenopathy, bilateral lung nodules max 10 mm, and malignant pleural effusion. Adjust antibiotics per gram stain and pleural culture 08/31/22 antibiotic day 3, transition to oral azithromycin 250 mg daily x 3 days and cefuroxime 500 mg daily x4 days 09/01/22 antibiotic day 4, continue current medications. (3) Acidosis: Code(s): E87.20 - Acidosis, unspecified Status: Acute Assessment and Plan: TCO2 18, secondary to CKD Monitor BMP daily Nephrology consulting and appreciate recommendations. Sodium bicarb initiated (4) Hypertension: Qualifiers: Hypertension type: primary hypertension Qualified Code(s): I10 - Essential (primary) hypertension Code(s): I10 - Essential (primary) hypertension Status: Chronic Assessment and Plan: Chronic, stable. Continue amlodipine and atenolol. Hold lisinopril and HCTZ while hydrating. (5) Lung nodules: Code(s): R91.8 - Other nonspecific abnormal finding of lung field Status: Acute Assessment and Plan: CXR with possible hilar mass on admission. CT chest concerning for bilateral lung nodules and hilar lymphadenopathy with malignant pleural effusion right side, liver masses and peritoneal carcinamotosis 08/30/22 US guided thoracentesis with -1 liter fluid removed, send fluid for cytology, pH, gram stain, culture, AFB, total protein, albumin, amylase, glucose pending Oncology consulted and appreciate recommendations. 09/01/22 pleural fluid preliminary labs show no organisms on gram stain or culture. AFB negative. all other labs pending. (6) Liver mass: Code(s): R16.0 - Hepatomegaly, not elsewhere classified Status: Acute Assessment and Plan: Elevated AST 100, ALT 100, Alk phos 312, Tbili 0.5. Abd US with cirrhosis, hepatomegaly and ascites noted on CT scan 08/30/22 US paracentesis deferred due to limited fluid. As above. (7) Generalized weakness: Code(s): R53.1 - Weakness Status: Acute Assessment and Plan: secondary to acute infection and/or malignant disease PT/OT evaluation. Continue medical management as above. Stable (8) Bladder mass: Code(s): N32.89 - Other specified disorders of bladder Status: Acute Assessment and Plan: Noted on US, hyperechoic bladder mass 4.1 cm Consult Urology and appreciate recommendations. 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
--- NOTE | 2022-09-01 16:22 | PDONCFUV ---
Assessment/Plan - Assessment will await pathology ti initiate systemic therapy Follow Up Note - Date/Time 09/01/22 16:22 - Interval History Appreciate Urology op note likely metastatin Urothelial Cancer H&P - Exam - Vital Signs Vital Signs - 24 hr 08/31/22 20:24 09/01/22 04:53 09/01/22 08:29 Temperature 36.6 C 36.4 C Pulse Rate 76 99 99 Respiratory Rate 18 20 Blood Pressure 109/65 106/62 Pulse Oximetry 95 95 Oxygen Delivery Oxygen Flow Rate 09/01/22 10:34 09/01/22 08:00 09/01/22 12:49 Temperature 36.4 C 36.6 C Pulse Rate 69 84 Respiratory Rate 16 22 H Blood Pressure 111/78 95/71 L Pulse Oximetry 91 93 Oxygen Delivery Room Air Room Air Simple Face Mask Oxygen Flow Rate 8 09/01/22 13:05 09/01/22 13:20 09/01/22 13:35 Temperature Pulse Rate 73 73 69 Respiratory Rate 18 20 20 Blood Pressure 103/75 104/74 106/73 Pulse Oximetry 94 94 93 Oxygen Delivery Nasal Cannula Nasal Cannula Nasal Cannula Oxygen Flow Rate 2 2 2 09/01/22 13:50 09/01/22 14:05 09/01/22 14:40 Temperature 36.6 C Pulse Rate 74 72 63 Respiratory Rate 20 20 18 Blood Pressure 99/61 L 109/70 116/73 Pulse Oximetry 94 94 91 Oxygen Delivery Nasal Cannula Nasal Cannula Oxygen Flow Rate 2 2 09/01/22 14:55 09/01/22 15:48 Temperature 36.4 C 36.4 C Pulse Rate 72 72 Respiratory Rate 18 18 Blood Pressure 109/61 109/67 Pulse Oximetry 91 91 Oxygen Delivery Oxygen Flow Rate - Lab Results Laboratory Last Values WBC 11.5 K/mm3 (4.5-10.0) H 09/01/22 05:44 RBC 3.78 M/mm3 (4.6-6.20) L 09/01/22 05:44 Hgb 10.9 g/dL (14.0-18.0) L 09/01/22 05:44 Hct 32.5 % (42.0-52.0) L 09/01/22 05:44 MCV 86.0 fl (80-100) 09/01/22 05:44 MCH 28.8 pg (26-34) 09/01/22 05:44 MCHC 33.5 g/dl (32-36) 09/01/22 05:44 RDW 13.2 % (11.5-14.5) 09/01/22 05:44 Plt Count 305 k/mm3 (150-375) 09/01/22 05:44 MPV 8.4 fl (7.4-10.4) 09/01/22 05:44 Immature Gran % (Auto) 1.0 % (0-0.5) H 09/01/22 05:44 Neut % (Auto) 76.9 % (45.5-73.1) H 09/01/22 05:44 Lymph % (Auto) 14.5 % (18.3-44.2) L 09/01/22 05:44 [place] % (Auto) 7.1 % (2.6-8.5) 09/01/22 05:44 Eos % (Auto) 0.3 % (0-4.4) 09/01/22 05:44 Baso % (Auto) 0.2 % (0.2-1.2) 09/01/22 05:44 Lymph # (Auto) 1.67 K/mm3 (0.9-3.2) 09/01/22 05:44 [place] # (Auto) 0.8 K/mm3 (0.1-0.6) H 09/01/22 05:44 Eos # (Auto) 0.0 K/mm3 (0-0.3) 09/01/22 05:44 Baso # (Auto) 0.0 K/mm3 (0.0-0.1) 09/01/22 05:44 Abs Immat Gran (auto) 0.12 K/mm3 (0.00-0.031) H 09/01/22 05:44 Absolute Neuts (auto) 8.9 K/mm3 (1.3-6.7) H 09/01/22 05:44 Absolute Nucleated RBC 0.0 K/mm3 (0.0-0.012) 09/01/22 05:44 Nucleated RBC % 0.0 % (0.0-0.2) 09/01/22 05:44 PT 14.5 Seconds (11.1-14.7) 08/30/22 11:44 INR 1.2 08/30/22 11:44 APTT Cancelled 08/30/22 11:46 Sodium 133 mmol/L (137-145) L 09/01/22 05:44 Potassium 4.5 mmol/L (3.4-5.0) 09/01/22 05:44 Chloride 106 mmol/L (98-107) 09/01/22 05:44 Carbon Dioxide 19 mmol/L (22-30) L 09/01/22 05:44 Anion Gap 8 mmol/L (8-16) 09/01/22 05:44 BUN 90 mg/dL (9-20) H 09/01/22 05:44 Creatinine 2.70 mg/dL (0.7-1.3) H 09/01/22 05:44 Estim Creat Clear Calc 22 ml/min 09/01/22 05:44 Estimated GFR 23 (59-) L 09/01/22 05:44 Glucose 113 mg/dL (65-110) H 09/01/22 05:44 Calcium 8.5 mg/dL (8.4-10.2) 09/01/22 05:44 Phosphorus 4.0 mg/dL (2.5-4.5) 08/31/22 05:26 Magnesium 2.3 mg/dL (1.6-2.3) 08/30/22 01:28 Total Bilirubin 0.4 mg/dL (0.2-1.3) 09/01/22 05:44 AST 65 U/L (17-59) H 09/01/22 05:44 ALT 65 U/L (6-50) H 09/01/22 05:44 Alkaline Phosphatase 261 U/L (38-126) H 09/01/22 05:44 Total Creatine Kinase 25 U/L (55-170) L 08/30/22 01:21 Total Protein 6.0 g/dL (6.3-8.2) L 09/01/22 05:44
[2022-09-02] MEDS: SODIUM CHLORIDE 0.9% IV 1,000 ML 75 ML IV CONT (00:17)
[2022-09-02 05:18] VITALS: BP 115/78; PULSE 78; RESP 18; TEMP 36.6; O2SAT 95
[2022-09-02 05:50] LABS: Basophils Percent Auto 0.2 % (0.2-1.2); Hematocrit 34.5 % (42.0-52.0); Hemoglobin 11.5 g/dL (14.0-18.0); Immature Granulocyte Absolute 0.25 K/mm3 (0.00-0.031); Immature Granulocyte Percent A 1.4 % (0-0.5); Lymphocytes Absolute Auto 2.49 K/mm3 (0.9-3.2); Lymphocytes Percent Auto 13.8 % (18.3-44.2); Mean Corpuscular HGB Conc 33.3 g/dl (32-36); Mean Corpuscular Hemoglobin 28.9 pg (26-34); Mean Corpuscular Volume 86.7 fl (80-100); Mean Platelet Volume 8.5 fl (7.4-10.4); Monocytes Percent Auto 5.5 % (2.6-8.5); Neutrophils Absolute Auto 14.3 K/mm3 (1.3-6.7); Neutrophils Percent Auto 79.1 % (45.5-73.1); Platelet Count Result 427 k/mm3 (150-375); Red Blood Count 3.98 M/mm3 (4.6-6.20); Red Cell Distribution Width 13.3 % (11.5-14.5); White Blood Count 18.1 K/mm3 (4.5-10.0)
[2022-09-02 06:04] LABS: Albumin Level 2.9 g/dL (3.5-5.1); Anion Gap 14 mmol/L (8-16); Blood Urea Nitrogen 87 mg/dL (9-20); Calcium 8.5 mg/dL (8.4-10.2); Carbon Dioxide 17 mmol/L (22-30); Chloride 105 mmol/L (98-107); Estimated CRCL calculation 22 ml/min; Estimated Glomerular Filt Rate 23; Glucose 121 mg/dL (65-110); Phosphorus 4.9 mg/dL (2.5-4.5); Potassium 4.6 mmol/L (3.4-5.0); Sodium 136 mmol/L (137-145)
[2022-09-02 07:21] LABS: Complement C3 126 mg/dL (88-165)
[2022-09-02 08:00] VITALS: O2SAT 93
[2022-09-02] MEDS: SACCHAROMYCES BOULARDII 250 MG CAPSULE PO ×2 (08:13→16:55)
[2022-09-02] MEDS: lisinopriL 20 MG TABLET 40 MG PO (08:13)
[2022-09-02] MEDS: SODIUM BICARBONATE TAB 650 MG TABLET 1300 MG PO ×2 (08:13→16:55)
[2022-09-02] MEDS: CEFUROXIME AXETIL 250 MG TABLET 500 MG PO (08:13)
[2022-09-02] MEDS: hydroCHLOROthiazide 25 MG TABLET PO (08:14)
[2022-09-02] MEDS: AZITHROMYCIN 250 MG TABLET PO (08:14)
[2022-09-02 08:15] VITALS: PULSE 64
[2022-09-02] MEDS: amLODIPine BESYLATE 5 MG TABLET 10 MG PO (08:15)
[2022-09-02] MEDS: atenoloL 50 MG TABLET 100 MG PO (08:15)
--- NOTE | 2022-09-02 09:44 | PM.PNNEP ---
Progress Note: A&P Assessment and Plan (1) Acute kidney injury superimposed on CKD: Code(s): N17.9 - Acute kidney failure, unspecified; N18.9 - Chronic kidney disease, unspecified Status: Acute Assessment and Plan: Tad has chronic kidney disease. His creatinine has been relatively stable at about 1.3 since 2019. He could have hypertensive nephrosclerosis because he has had hypertension for a long time. he has hyperlipidemia and along with the high blood pressure this puts him at higher risk for having some small-vessel vascular disease in the kidneys. On the other hand the creatinine seemed to worsen in 2019 and that is when he had COVID so he could have had some effect on the kidneys by the COVID. There other causes of chronic kidney disease as well including Interstitial nephritis, glomerulonephritis but these are less likely in this clinical scenario. The patient has acute kidney injury as well. renal ultrasound shows a bladder mass and mild right hydronephrosis. Fractional excretion of urea shows pre renal azotemia. Urine protein to creatinine ratio was 240 UA shows some red cells and some white cells. CK is normal Etiology of renal failure is probably a combination of dehydration and pneumonia. saw the patient and did see discussed be yesterday which showed a poorly differentiated bladder cancer. They could not find the right renal orifice and the cancer is probably responsible for his hydronephrosis. They did TURBT and he made a lot of urine overnight. He is on bladder flushes and so I do not know if that urine output was truly urine or not. If it was perhaps the renal orifice was freed up by the TURBT. If not then consider percutaneous nephrostomy at some point? we will see what his creatinine does over the next couple of days. He has been getting IV fluids but the creatinine is not better. Will try stopping the fluids and let him eat. (2) Lung infiltrate: Code(s): R91.8 - Other nonspecific abnormal finding of lung field Status: Acute Assessment and Plan: the patient has infiltrate on his chest x-ray. He was diagnosed with pneumonia and is getting some antibiotics. (3) Hypertension: Qualifiers: Hypertension type: primary hypertension Qualified Code(s): I10 - Essential (primary) hypertension Code(s): I10 - Essential (primary) hypertension Status: Chronic Assessment and Plan: Patient has hypertension. His blood pressure is under good control (4) Acidosis: Code(s): E87.20 - Acidosis, unspecified Status: Acute Assessment and Plan: His bicarbonate level is a little bit on the low side. This may be due to the renal insufficiency with low production of ammonia. his bicarbonate level is in the high teens. Subjective Date/time seen: 09/02/22 09:44 Interval history: Tad is feeling a little better today. Still not much of an appetite. Exam Narrative: WDWN in NAD skin no rash head ncat lungs clear bilaterally cor reg no rub abd BS+ nontender and soft ext no edema. Objective Data Vital Signs Vital Signs: Vital Signs - 24 hr 09/01/22 10:34 09/01/22 12:49 09/01/22 13:05 Temperature 36.4 C 36.6 C Pulse Rate 69 84 73 Respiratory Rate 16 22 H 18 Blood Pressure 111/78 95/71 L 103/75 Pulse Oximetry 91 93 94 Oxygen Delivery Room Air Simple Face Mask Nasal Cannula Oxygen Flow Rate 8 2 09/01/22 13:20 09/01/22 13:35 09/01/22 13:50 Temperature Pulse Rate 73 69 74 Respiratory Rate 20 20 20 Blood Pressure 104/74 106/73 99/61 L Pulse Oximetry 94 93 94 Oxygen Delivery Nasal Cannula Nasal Cannula Nasal Cannula Oxygen Flow Rate 2 2 2 09/01/22 14:05 09/01/22 14:40 09/01/22 14:55 Temperature 36.6 C 36.4 C Pulse Rate 72 63 72 Respiratory Rate 20 18 18 Blood Pressure 109/70 116/73 109/61 Pulse Oximetry 94 91 91 Oxygen Delivery Nasal Cannula
[2022-09-02 09:55] LABS: Erythrocyte Sedimentation Rate 103 mm/hr (0-20)
--- NOTE | 2022-09-02 10:37 | WPDUROPN2 ---
Progress Note: A&P Assessment and Plan (1) Bladder mass: Code(s): N32.89 - Other specified disorders of bladder Status: Acute Assessment and Plan: POD #1 s/p TURBT. urine clear on slow drip cbi. -clamp cbi maintain maradiaga (2) Acute kidney injury superimposed on CKD: Code(s): N17.9 - Acute kidney failure, unspecified; N18.9 - Chronic kidney disease, unspecified Status: Acute Assessment and Plan: mild hydro check serial Cr. -may consider repeat TOBY in a day or 2 , if hydronephrosis persistent may consider PCN by IR Subjective Subjective Date/Time Seen: 09/02/22 10:37 NAEO. no CP SOB. urine has cleared. tolerating diet, no pain Review of Systems Cardiovascular: Cardiovascular: Denies chest pain, Denies lightheadedness, Denies palpitations and Denies dyspnea Respiratory: Respiratory: Denies dyspnea Gastrointestinal: Gastrointestinal: Denies diarrhea, Denies nausea and Denies vomiting Genitourinary: Genitourinary: Denies hematuria and Denies dysuria Endocrine: Endocrine: Denies palpitations Exam Const: General: no acute distress Resp: Effort & Inspection: normal respiratory effort GI: Inspection: non-distended GI Palp: No abdominal tenderness and No Guarding due to palpation present (GI) Auscultation: normal bowel sounds : Male General Exam: Yes normal external exam Urinary Catheter: Urinary Catheter: patent and draining and urine clear Objective Data Vital Signs Vital Signs: Vital Signs - 24 hr 09/01/22 12:49 09/01/22 13:05 09/01/22 13:20 Temperature 36.6 C Pulse Rate 84 73 73 Respiratory Rate 22 H 18 20 Blood Pressure 95/71 L 103/75 104/74 Pulse Oximetry 93 94 94 Oxygen Delivery Simple Face Mask Nasal Cannula Nasal Cannula Oxygen Flow Rate 8 2 2 09/01/22 13:35 09/01/22 13:50 09/01/22 14:05 Temperature Pulse Rate 69 74 72 Respiratory Rate 20 20 20 Blood Pressure 106/73 99/61 L 109/70 Pulse Oximetry 93 94 94 Oxygen Delivery Nasal Cannula Nasal Cannula Nasal Cannula Oxygen Flow Rate 2 2 2 09/01/22 14:40 09/01/22 14:55 09/01/22 15:48 Temperature 36.6 C 36.4 C 36.4 C Pulse Rate 63 72 72 Respiratory Rate 18 18 18 Blood Pressure 116/73 109/61 109/67 Pulse Oximetry 91 91 91 Oxygen Delivery Oxygen Flow Rate 09/01/22 17:24 09/01/22 19:41 09/02/22 05:18 Temperature 36.0 C L 36.6 C 36.6 C Pulse Rate 79 64 78 Respiratory Rate 18 18 18 Blood Pressure 106/63 124/69 115/78 Pulse Oximetry 91 96 95 Oxygen Delivery Oxygen Flow Rate 09/02/22 08:15 09/02/22 08:00 Temperature Pulse Rate 64 Respiratory Rate Blood Pressure Pulse Oximetry 93 Oxygen Delivery Nasal Cannula Oxygen Flow Rate 2 Intake/Output Intake/Output: Intake & Output 08/30/22 08/31/22 09/01/22 09/02/22 23:59 23:59 23:59 23:59 Intake Total 1590 3620 4890 1340 Output Total 2300 1300 5050 4000 Balance -710 0583 -977 -3518 Meds/Results Medications: Active Medications Generic Name Dose Route Start Last Admin Trade Name Freq PRN Reason Stop Dose Admin Acetaminophen 650 mg 09/02/22 08:32 Acetaminophen 325 Mg Tablet PO Q4H PRN Mild Pain (1-3) or Fever Hydrocodone Bitart/Acetaminophen 1 tab 09/02/22 08:32 Hydrocodone/Acetaminophen (*Crx) 5-325 Mg Tablet PO Q6H PRN Pain Rated 4-6 Amlodipine Besylate 5 mg 09/03/22 09:00 Amlodipine Besylate 5 Mg Tablet PO DAILY MALA Atenolol 100 mg 08/30/22 09:00 09/02/22 08:15 Atenolol 50 Mg Tablet PO 100 mg DAILY MALA Administration Cefuroxime Axetil 500 mg 09/01/22 09:00 09/02/22 08:13 Cefuroxime Axetil 250 Mg Tablet PO 09/05/22 08:59 500 mg DAILY MALA Administration Fentanyl Citrate 25 mcg 09/01/22 10:46 09/01/22 13:10 Fentanyl Citrate Inj (*Crx) 100 Mcg/2 Ml Vial IV PUSH 25 mcg Q2M PRN Administration Pain Ondansetron HCl 4 mg 09/01/22 10:46 Ondansetron Inj 4 Mg/2 Ml Vial IV PUSH ONCE PRN Nausea
[2022-09-02 14:00] VITALS: BP 95/54; PULSE 62; RESP 18; TEMP 36.7; O2SAT 96
--- NOTE | 2022-09-02 16:50 | WPDANESPN ---
Anes - Prog Note Post-Op Date/Time: 09/02/22 16:50 Cardiovascular status: normal Respiratory status: normal Airway patency: baseline Mental status: baseline Post-Op hydration status: normal Vital Signs: Last Vital Signs Temp 36.7 C 09/02/22 14:00 Pulse 62 09/02/22 14:00 Resp 18 09/02/22 14:00 BP 95/54 L 09/02/22 14:00 Pulse Ox 96 09/02/22 14:00 O2 Del Method Nasal Cannula 09/02/22 08:00 O2 Flow Rate 2 09/02/22 08:00 Pain Score (VAS): 12/15 I/O: Intake & Output 09/02/22 09/02/22 09/02/22 07:59 15:59 23:59 Intake Total 1100 462 Output Total 4000 Balance -2900 462 Laboratory Tests 09/02/22 05:31 09/02/22 05:31 09/02/22 09/02/22 09/02/22 05:31 05:31 05:31 WBC RBC Hgb Hct MCV MCH MCHC RDW Plt Count MPV Immature Gran % (Auto) Neut % (Auto) Lymph % (Auto) [place] % (Auto) Eos % (Auto) Baso % (Auto) Lymph # (Auto) [place] # (Auto) Eos # (Auto) Baso # (Auto) Abs Immat Gran (auto) Absolute Neuts (auto) Absolute Nucleated RBC Nucleated RBC % ESR 103 H Sodium Potassium Chloride Carbon Dioxide Anion Gap BUN Creatinine Estim Creat Clear Calc Estimated GFR Glucose Calcium Phosphorus Albumin Serum Immunofixation Pending ANDIE Screen Pending ANCA Screen Glomerular Base Memb Ab Complement C3 Complement C4 Tot Complement (CH50) Pending 09/02/22 09/02/22 09/02/22 05:31 05:31 05:31 WBC 18.1 H RBC 3.98 L Hgb 11.5 L Hct 34.5 L MCV 86.7 MCH 28.9 MCHC 33.3 RDW 13.3 Plt Count 427 H MPV 8.5 Immature Gran % (Auto) 1.4 H Neut % (Auto) 79.1 H Lymph % (Auto) 13.8 L [place] % (Auto) 5.5 Eos % (Auto) 0.0 Baso % (Auto) 0.2 Lymph # (Auto) 2.49 [place] # (Auto) 1.0 H Eos # (Auto) 0.0 Baso # (Auto) 0.0 Abs Immat Gran (auto) 0.25 H Absolute Neuts (auto) 14.3 H Absolute Nucleated RBC 0.0 Nucleated RBC % 0.0 ESR Sodium Potassium Chloride Carbon Dioxide Anion Gap BUN Creatinine Estim Creat Clear Calc Estimated GFR Glucose Calcium Phosphorus Albumin Serum Immunofixation ANDIE Screen ANCA Screen Pending Glomerular Base Memb Ab Pending Complement C3 126 Complement C4 27.3 Tot Complement (CH50) 09/02/22 05:31 WBC RBC Hgb Hct MCV MCH MCHC RDW Plt Count MPV Immature Gran % (Auto) Neut % (Auto) Lymph % (Auto) [place] % (Auto) Eos % (Auto) Baso % (Auto) Lymph # (Auto) [place] # (Auto) Eos # (Auto) Baso # (Auto) Abs Immat Gran (auto) Absolute Neuts (auto) Absolute Nucleated RBC Nucleated RBC % ESR Sodium 136 L Potassium 4.6 Chloride 105 Carbon Dioxide 17 L Anion Gap 14 BUN 87 H Creatinine 2.70 H Estim Creat Clear Calc 22 Estimated GFR 23 L Glucose 121 H Calcium 8.5 Phosphorus 4.9 H Albumin 2.9 L Serum Immunofixation ANDIE Screen ANCA Screen Glomerular Base Memb Ab Complement C3 Complement C4 Tot Complement (CH50) Microbiology 08/30/22 15:03 Pleural Fluid Gram Stain - Final 08/30/22 15:03 Pleural Fluid Acid Fast Bacilli Culture - Preliminary Post-procedural complaints: none Patient Feedback: Patient satisfied with anesthetic care.
[2022-09-02] MEDS: PSYLLIUM POWDER PACKET 1 PACKET PO (16:55)
--- NOTE | 2022-09-02 17:15 | P.PNIM_ITS ---
Progress Note: A&P Assessment and Plan (1) Acute kidney injury superimposed on CKD: Code(s): N17.9 - Acute kidney failure, unspecified; N18.9 - Chronic kidney disease, unspecified Status: Acute Assessment and Plan: Acute on chronic disease. BUN 101, creatinine 3.1, GFR 20. Baseline BUN 28-30, creatinine 1.3-1.4, GFR 49, CKD stage 3 * Continue IV hydration NS@75 mL/hour. * Nephrology consulted and appreciate recommendations. * hold lisinopril and hydrochlorothiazide. Hold nephrotoxic agents. * Renal US - mild right hydronephrosis and 4.1 cm bladder mass versus clot * Trend BMP. Monitor electrolytes. * Monitor I/O. * 08/31/22 BUN 90, creatinine 2.6, GFR 24. Continue IV fluids and management per Nephrology * 09/01/22 BUN 90, creatinine 2.7, GFR 23. Continue IV fluids. Patient having retrograde pyelogram today. Nephrology following. Repeat labs in am. * 09/02/22 renal function unchanged. (2) Lung infiltrate: Code(s): R91.8 - Other nonspecific abnormal finding of lung field Status: Acute Assessment and Plan: CXR with right mid and lower lung infiltrate concerning for pneumonia or atelectasis * Started on Rocephin 1 gram IV Q24 and Zithromax 500 mg IV Q24 hours, started 08/29/22 in ED * s/p thoracentesis with cultures pending * CT chest - concerning for hilar lymphadenopathy, bilateral lung nodules max 10 mm, and malignant pleural effusion. * Adjust antibiotics per gram stain and pleural culture * 08/31/22 antibiotic day 3, transition to oral azithromycin 250 mg daily x 3 days and cefuroxime 500 mg daily x4 days * 09/01/22 antibiotic day 4, continue current medications. * 09/02/22 antibiotic day 5, last day of azithromycin. Continue cefuroxime for 2 more days. Repeat CXR with ?atelectasis and possible pulmonary edema. Will initiate incentive spirometry. If O2 requirement increases, will consider dose of lasix. As the patient is getting IV fluids for #1 will defer for now. (3) Acidosis: Code(s): E87.20 - Acidosis, unspecified Status: Acute Assessment and Plan: TCO2 18, secondary to CKD * Monitor BMP daily * Nephrology consulting and appreciate recommendations. * Sodium bicarb initiated PO by nephrology (4) Hypertension: Qualifiers: Hypertension type: primary hypertension Qualified Code(s): I10 - Essential (primary) hypertension Code(s): I10 - Essential (primary) hypertension Status: Chronic Assessment and Plan: Chronic, stable. * Continue amlodipine and atenolol. * Hold lisinopril and HCTZ while hydrating. (5) Lung nodules: Code(s): R91.8 - Other nonspecific abnormal finding of lung field Status: Acute Assessment and Plan: CXR with possible hilar mass on admission. * CT chest concerning for bilateral lung nodules and hilar lymphadenopathy with malignant pleural effusion right side, liver masses and peritoneal carcinamotosis * 08/30/22 US guided thoracentesis with -1 liter fluid removed, send fluid for cytology, pH, gram stain, culture, AFB, total protein, albumin, amylase, glucose pending * Oncology consulted and appreciate recommendations. * 09/01/22 pleural fluid preliminary labs show no organisms on gram stain or culture. AFB negative. all other labs pending. (6) Liver mass: Code(s): R16.0 - Hepatomegaly, not elsewhere classified Status: Acute Assessment and Plan: Elevated AST 100, ALT 100, Alk phos 312, Tbili 0.5. * Abd US with cirrhosis, hepatomegaly and ascites noted on CT scan * 08/30/22 US paracentesis deferred due to limite
--- NOTE | 2022-09-02 17:15 | PM.IMPN ---
Progress Note: A&P Assessment and Plan (1) Acute kidney injury superimposed on CKD: Code(s): N17.9 - Acute kidney failure, unspecified; N18.9 - Chronic kidney disease, unspecified Status: Acute Assessment and Plan: Acute on chronic disease. BUN 101, creatinine 3.1, GFR 20. Baseline BUN 28-30, creatinine 1.3-1.4, GFR 49, CKD stage 3 Continue IV hydration NS@75 mL/hour. Nephrology consulted and appreciate recommendations. hold lisinopril and hydrochlorothiazide. Hold nephrotoxic agents. Renal US - mild right hydronephrosis and 4.1 cm bladder mass versus clot Trend BMP. Monitor electrolytes. Monitor I/O. 08/31/22 BUN 90, creatinine 2.6, GFR 24. Continue IV fluids and management per Nephrology 09/01/22 BUN 90, creatinine 2.7, GFR 23. Continue IV fluids. Patient having retrograde pyelogram today. Nephrology following. Repeat labs in am. 09/02/22 renal function unchanged. (2) Lung infiltrate: Code(s): R91.8 - Other nonspecific abnormal finding of lung field Status: Acute Assessment and Plan: CXR with right mid and lower lung infiltrate concerning for pneumonia or atelectasis Started on Rocephin 1 gram IV Q24 and Zithromax 500 mg IV Q24 hours, started 08/29/22 in ED s/p thoracentesis with cultures pending CT chest - concerning for hilar lymphadenopathy, bilateral lung nodules max 10 mm, and malignant pleural effusion. Adjust antibiotics per gram stain and pleural culture 08/31/22 antibiotic day 3, transition to oral azithromycin 250 mg daily x 3 days and cefuroxime 500 mg daily x4 days 09/01/22 antibiotic day 4, continue current medications. 09/02/22 antibiotic day 5, last day of azithromycin. Continue cefuroxime for 2 more days. Repeat CXR with ?atelectasis and possible pulmonary edema. Will initiate incentive spirometry. If O2 requirement increases, will consider dose of lasix. As the patient is getting IV fluids for #1 will defer for now. (3) Acidosis: Code(s): E87.20 - Acidosis, unspecified Status: Acute Assessment and Plan: TCO2 18, secondary to CKD Monitor BMP daily Nephrology consulting and appreciate recommendations. Sodium bicarb initiated PO by nephrology (4) Hypertension: Qualifiers: Hypertension type: primary hypertension Qualified Code(s): I10 - Essential (primary) hypertension Code(s): I10 - Essential (primary) hypertension Status: Chronic Assessment and Plan: Chronic, stable. Continue amlodipine and atenolol. Hold lisinopril and HCTZ while hydrating. (5) Lung nodules: Code(s): R91.8 - Other nonspecific abnormal finding of lung field Status: Acute Assessment and Plan: CXR with possible hilar mass on admission. CT chest concerning for bilateral lung nodules and hilar lymphadenopathy with malignant pleural effusion right side, liver masses and peritoneal carcinamotosis 08/30/22 US guided thoracentesis with -1 liter fluid removed, send fluid for cytology, pH, gram stain, culture, AFB, total protein, albumin, amylase, glucose pending Oncology consulted and appreciate recommendations. 09/01/22 pleural fluid preliminary labs show no organisms on gram stain or culture. AFB negative. all other labs pending. (6) Liver mass: Code(s): R16.0 - Hepatomegaly, not elsewhere classified Status: Acute Assessment and Plan: Elevated AST 100, ALT 100, Alk phos 312, Tbili 0.5. Abd US with cirrhosis, hepatomegaly and ascites noted on CT scan 08/30/22 US paracentesis deferred due to limited fluid. As above. (7) Generalized weakness: Code(s): R53.1 - Weakness Status: Acute Assessment and Plan: secondary to acute infection and/or malignant disease PT/OT evaluation. Continue medical management as above. Stable (8) Bladder mass: Code(s): N32.89 - Other specified disorders of bladder Status: Acute Assessment and Plan:
[2022-09-02 19:47] LABS: Glucose Pleural Fluid 48 mg/dL; Total Protein Pleural Fluid 4.1 g/dL
[2022-09-02 19:55] VITALS: BP 92/55; PULSE 67; RESP 20; TEMP 36.6; O2SAT 96
[2022-09-03 05:09] VITALS: BP 92/53; PULSE 65; RESP 20; TEMP 36.5; O2SAT 95
[2022-09-03 05:48] LABS: Basophils Percent Auto 0.1 % (0.2-1.2); Eosinophils Absolute Auto 0.1 K/mm3 (0-0.3); Eosinophils Percent Auto 0.3 % (0-4.4); Hematocrit 32.2 % (42.0-52.0); Hemoglobin 10.5 g/dL (14.0-18.0); Immature Granulocyte Absolute 0.17 K/mm3 (0.00-0.031); Immature Granulocyte Percent A 1.1 % (0-0.5); Lymphocytes Absolute Auto 2.06 K/mm3 (0.9-3.2); Lymphocytes Percent Auto 13.7 % (18.3-44.2); Mean Corpuscular HGB Conc 32.6 g/dl (32-36); Mean Corpuscular Hemoglobin 29.6 pg (26-34); Mean Corpuscular Volume 90.7 fl (80-100); Mean Platelet Volume 8.9 fl (7.4-10.4); Monocytes Absolute Auto 0.8 K/mm3 (0.1-0.6); Monocytes Percent Auto 5.5 % (2.6-8.5); Neutrophils Absolute Auto 11.9 K/mm3 (1.3-6.7); Neutrophils Percent Auto 79.3 % (45.5-73.1); Platelet Count Result 302 k/mm3 (150-375); Red Blood Count 3.55 M/mm3 (4.6-6.20); Red Cell Distribution Width 13.7 % (11.5-14.5)
[2022-09-03 06:04] LABS: Albumin Level 2.7 g/dL (3.5-5.1); Anion Gap 9 mmol/L (8-16); Blood Urea Nitrogen 98 mg/dL (9-20); Calcium 8.2 mg/dL (8.4-10.2); Carbon Dioxide 19 mmol/L (22-30); Chloride 106 mmol/L (98-107); Estimated CRCL calculation 18 ml/min; Estimated Glomerular Filt Rate 18; Glucose 114 mg/dL (65-110); Phosphorus 4.4 mg/dL (2.5-4.5); Potassium 4.5 mmol/L (3.4-5.0); Sodium 134 mmol/L (137-145)
[2022-09-03 08:00] VITALS: O2SAT 93
--- NOTE | 2022-09-03 08:59 | P.PNIM_ITS ---
Progress Note: A&P Assessment and Plan (1) Acute kidney injury superimposed on CKD: Code(s): N17.9 - Acute kidney failure, unspecified; N18.9 - Chronic kidney disease, unspecified Status: Acute Assessment and Plan: Acute on chronic disease. BUN 101, creatinine 3.1, GFR 20. Baseline BUN 28-30, creatinine 1.3-1.4, GFR 49, CKD stage 3 * Continue IV hydration NS@75 mL/hour. * Nephrology consulted and appreciate recommendations. * hold lisinopril and hydrochlorothiazide. Hold nephrotoxic agents. * Renal US - mild right hydronephrosis and 4.1 cm bladder mass versus clot * Trend BMP. Monitor electrolytes. * Monitor I/O. * 08/31/22 BUN 90, creatinine 2.6, GFR 24. Continue IV fluids and management per Nephrology * 09/01/22 BUN 90, creatinine 2.7, GFR 23. Continue IV fluids. Patient having retrograde pyelogram today. Nephrology following. Repeat labs in am. * 09/02/22 renal function unchanged. * 09/03/2022 cr worsened followed by Nephrology. 2.60>2.70>3.30 (2) Lung infiltrate: Code(s): R91.8 - Other nonspecific abnormal finding of lung field Status: Acute Assessment and Plan: CXR with right mid and lower lung infiltrate concerning for pneumonia or atelectasis * Started on Rocephin 1 gram IV Q24 and Zithromax 500 mg IV Q24 hours, started 08/29/22 in ED * s/p thoracentesis with cultures pending * CT chest - concerning for hilar lymphadenopathy, bilateral lung nodules max 10 mm, and malignant pleural effusion. * Adjust antibiotics per gram stain and pleural culture * 08/31/22 antibiotic day 3, transition to oral azithromycin 250 mg daily x 3 days and cefuroxime 500 mg daily x4 days * 09/01/22 antibiotic day 4, continue current medications. * 09/02/22 antibiotic day 5, last day of azithromycin. Continue cefuroxime for 2 more days. Repeat CXR with ?atelectasis and possible pulmonary edema. Will initiate incentive spirometry. If O2 requirement increases, will consider dose of lasix. As the patient is getting IV fluids for #1 will defer for now. (3) Acidosis: Code(s): E87.20 - Acidosis, unspecified Status: Acute Assessment and Plan: TCO2 18, secondary to CKD * Monitor BMP daily * Nephrology consulting and appreciate recommendations. * Sodium bicarb initiated PO by nephrology (4) Hypertension: Qualifiers: Hypertension type: primary hypertension Qualified Code(s): I10 - Essential (primary) hypertension Code(s): I10 - Essential (primary) hypertension Status: Chronic Assessment and Plan: Chronic, stable. * Continue amlodipine and atenolol. * Hold lisinopril and HCTZ while hydrating. (5) Lung nodules: Code(s): R91.8 - Other nonspecific abnormal finding of lung field Status: Acute Assessment and Plan: CXR with possible hilar mass on admission. * CT chest concerning for bilateral lung nodules and hilar lymphadenopathy with malignant pleural effusion right side, liver masses and peritoneal carcinamotosis * 08/30/22 US guided thoracentesis with -1 liter fluid removed, send fluid for cytology, pH, gram stain, culture, AFB, total protein, albumin, amylase, glucose pending * Oncology consulted and appreciate recommendations. * 09/01/22 pleural fluid preliminary labs show no organisms on gram stain or culture. AFB negative. all other labs pending. (6) Liver mass: Code(s): R16.0 - Hepatomegaly, not elsewhere classified Status: Acute Assessment and Plan: Elevated AST 100>65, ALT 100>65, Alk phos 312>261, Tbili 0.5>0.4. Improving t rending down. * Abd US with cirrhosis, hepatomegaly and ascites not
--- NOTE | 2022-09-03 08:59 | PM.IMPN ---
Progress Note: A&P Assessment and Plan (1) Acute kidney injury superimposed on CKD: Code(s): N17.9 - Acute kidney failure, unspecified; N18.9 - Chronic kidney disease, unspecified Status: Acute Assessment and Plan: Acute on chronic disease. BUN 101, creatinine 3.1, GFR 20. Baseline BUN 28-30, creatinine 1.3-1.4, GFR 49, CKD stage 3 Continue IV hydration NS@75 mL/hour. Nephrology consulted and appreciate recommendations. hold lisinopril and hydrochlorothiazide. Hold nephrotoxic agents. Renal US - mild right hydronephrosis and 4.1 cm bladder mass versus clot Trend BMP. Monitor electrolytes. Monitor I/O. 08/31/22 BUN 90, creatinine 2.6, GFR 24. Continue IV fluids and management per Nephrology 09/01/22 BUN 90, creatinine 2.7, GFR 23. Continue IV fluids. Patient having retrograde pyelogram today. Nephrology following. Repeat labs in am. 09/02/22 renal function unchanged. 09/03/2022 cr worsened followed by Nephrology. 2.60>2.70>3.30 (2) Lung infiltrate: Code(s): R91.8 - Other nonspecific abnormal finding of lung field Status: Acute Assessment and Plan: CXR with right mid and lower lung infiltrate concerning for pneumonia or atelectasis Started on Rocephin 1 gram IV Q24 and Zithromax 500 mg IV Q24 hours, started 08/29/22 in ED s/p thoracentesis with cultures pending CT chest - concerning for hilar lymphadenopathy, bilateral lung nodules max 10 mm, and malignant pleural effusion. Adjust antibiotics per gram stain and pleural culture 08/31/22 antibiotic day 3, transition to oral azithromycin 250 mg daily x 3 days and cefuroxime 500 mg daily x4 days 09/01/22 antibiotic day 4, continue current medications. 09/02/22 antibiotic day 5, last day of azithromycin. Continue cefuroxime for 2 more days. Repeat CXR with ?atelectasis and possible pulmonary edema. Will initiate incentive spirometry. If O2 requirement increases, will consider dose of lasix. As the patient is getting IV fluids for #1 will defer for now. (3) Acidosis: Code(s): E87.20 - Acidosis, unspecified Status: Acute Assessment and Plan: TCO2 18, secondary to CKD Monitor BMP daily Nephrology consulting and appreciate recommendations. Sodium bicarb initiated PO by nephrology (4) Hypertension: Qualifiers: Hypertension type: primary hypertension Qualified Code(s): I10 - Essential (primary) hypertension Code(s): I10 - Essential (primary) hypertension Status: Chronic Assessment and Plan: Chronic, stable. Continue amlodipine and atenolol. Hold lisinopril and HCTZ while hydrating. (5) Lung nodules: Code(s): R91.8 - Other nonspecific abnormal finding of lung field Status: Acute Assessment and Plan: CXR with possible hilar mass on admission. CT chest concerning for bilateral lung nodules and hilar lymphadenopathy with malignant pleural effusion right side, liver masses and peritoneal carcinamotosis 08/30/22 US guided thoracentesis with -1 liter fluid removed, send fluid for cytology, pH, gram stain, culture, AFB, total protein, albumin, amylase, glucose pending Oncology consulted and appreciate recommendations. 09/01/22 pleural fluid preliminary labs show no organisms on gram stain or culture. AFB negative. all other labs pending. (6) Liver mass: Code(s): R16.0 - Hepatomegaly, not elsewhere classified Status: Acute Assessment and Plan: Elevated AST 100>65, ALT 100>65, Alk phos 312>261, Tbili 0.5>0.4. Improving trending down. Abd US with cirrhosis, hepatomegaly and ascites noted on CT scan 08/30/22 US paracentesis deferred due to limited fluid. As above. (7) Generalized weakness: Code(s): R53.1 - Weakness Status: Acute Assessment and Plan: secondary to acute infection and/or malignant disease PT/OT evaluation. Continue medical management as above. Stable (8) Bladder mass: Code(s): N32.89 - Other specified disorders
[2022-09-03] MEDS: SODIUM BICARBONATE TAB 650 MG TABLET 1300 MG PO ×2 (09:25→17:22)
[2022-09-03] MEDS: SACCHAROMYCES BOULARDII 250 MG CAPSULE PO ×2 (09:25→17:22)
[2022-09-03] MEDS: amLODIPine BESYLATE 5 MG TABLET PO (09:25)
[2022-09-03] MEDS: CEFUROXIME AXETIL 250 MG TABLET 500 MG PO (09:26)
[2022-09-03] MEDS: PSYLLIUM POWDER PACKET 1 PACKET PO (09:26)
[2022-09-03 09:27] VITALS: PULSE 63
[2022-09-03] MEDS: atenoloL 50 MG TABLET 100 MG PO (09:27)
--- NOTE | 2022-09-03 11:33 | WPDUROPN2 ---
Progress Note: A&P Assessment and Plan (1) Bladder mass: Code(s): N32.89 - Other specified disorders of bladder Status: Acute Assessment and Plan: POD #2 s/p TURBT. urine clear off cbi maintain maradiaga (2) Acute kidney injury superimposed on CKD: Code(s): N17.9 - Acute kidney failure, unspecified; N18.9 - Chronic kidney disease, unspecified Status: Acute Assessment and Plan: moderate hydro on TOBY with worsening Cr and BUN -recommend PCN by IR, -NPO at [facility] Subjective Subjective Date/Time Seen: 09/03/22 11:33 No pain, urine cler. NAEO. poor diet. no flank or abdominal pain. cbi off. Review of Systems Cardiovascular: Cardiovascular: Denies chest pain, Denies lightheadedness, Denies palpitations and Denies dyspnea Respiratory: Respiratory: Denies dyspnea Gastrointestinal: Gastrointestinal: Denies diarrhea, Denies nausea and Denies vomiting Genitourinary: Genitourinary: Denies hematuria and Denies dysuria Endocrine: Endocrine: Denies palpitations Exam Const: General: no acute distress Resp: Effort & Inspection: normal respiratory effort GI: Inspection: non-distended GI Palp: No abdominal tenderness and No Guarding due to palpation present (GI) Auscultation: normal bowel sounds : Male General Exam: Yes normal external exam Urinary Catheter: Urinary Catheter: patent and draining and urine clear Objective Data Vital Signs Vital Signs: Vital Signs - 24 hr 09/02/22 14:00 09/02/22 19:55 09/03/22 05:09 Temperature 36.7 C 36.6 C 36.5 C Pulse Rate 62 67 65 Respiratory Rate 18 20 20 Blood Pressure 95/54 L 92/55 L 92/53 L Pulse Oximetry 96 96 95 Oxygen Delivery Oxygen Flow Rate 09/03/22 09:27 09/03/22 08:00 Temperature Pulse Rate 63 Respiratory Rate Blood Pressure Pulse Oximetry 93 Oxygen Delivery Nasal Cannula Oxygen Flow Rate 1.5 Intake/Output Intake/Output: Intake & Output 08/31/22 09/01/22 09/02/22 09/03/22 23:59 23:59 23:59 23:59 Intake Total 3620 4890 1682 670 Output Total 1300 5050 4000 3925 Balance 4887 -135 -0046 -8078 Meds/Results Medications: Active Medications Generic Name Dose Route Start Last Admin Trade Name Freq PRN Reason Stop Dose Admin Acetaminophen 650 mg 09/02/22 08:32 Acetaminophen 325 Mg Tablet PO Q4H PRN Mild Pain (1-3) or Fever Hydrocodone Bitart/Acetaminophen 1 tab 09/02/22 08:32 Hydrocodone/Acetaminophen (*Crx) 5-325 Mg Tablet PO Q6H PRN Pain Rated 4-6 Amlodipine Besylate 5 mg 09/03/22 09:00 09/03/22 09:25 Amlodipine Besylate 5 Mg Tablet PO 5 mg DAILY MALA Administration Atenolol 100 mg 08/30/22 09:00 09/03/22 09:27 Atenolol 50 Mg Tablet PO 100 mg DAILY MALA Administration Cefuroxime Axetil 500 mg 09/01/22 09:00 09/03/22 09:26 Cefuroxime Axetil 250 Mg Tablet PO 09/05/22 08:59 500 mg DAILY MALA Administration Fentanyl Citrate 25 mcg 09/01/22 10:46 09/01/22 13:10 Fentanyl Citrate Inj (*Crx) 100 Mcg/2 Ml Vial IV PUSH 25 mcg Q2M PRN Administration Pain Ondansetron HCl 4 mg 09/01/22 10:46 Ondansetron Inj 4 Mg/2 Ml Vial IV PUSH ONCE PRN Nausea Psyllium Hydrophilic Mucilloid 1 packet 09/02/22 10:29 09/03/22 09:26 Psyllium Powder Packet PO 1 packet QAM MALA Administration Saccharomyces Boulardii 250 mg 08/31/22 17:00 09/03/22 09:25 Saccharomyces Boulardii 250 Mg Capsule PO 250 mg BID MALA Administration Sodium Bicarbonate 1,300 mg 08/31/22 10:40 09/03/22 09:25 Sodium Bicarbonate Tab 650 Mg Tablet PO 1,300 mg BID MALA Administration Radiology Results: ITS Impressions Chest CT 08/30/22 08:47 IMPRESSION: 1. Right-sided malignant pleural effusion, ascites with peritoneal carcinomatosis, lung nodules, liver masses, and mild mediastinal lymphadenopathy, consistent with metastatic disease. Consider ultrasound-guided thoracentesis or paracentesis for diagnosi
--- NOTE | 2022-09-03 12:15 | PM.PNNEP ---
Progress Note: A&P Assessment and Plan (1) Acute kidney injury superimposed on CKD: Code(s): N17.9 - Acute kidney failure, unspecified; N18.9 - Chronic kidney disease, unspecified Status: Acute Assessment and Plan: Tad has chronic kidney disease. His creatinine has been relatively stable at about 1.3 since 2019. He could have hypertensive nephrosclerosis because he has had hypertension for a long time. he has hyperlipidemia and along with the high blood pressure this puts him at higher risk for having some small-vessel vascular disease in the kidneys. On the other hand the creatinine seemed to worsen in 2019 and that is when he had COVID so he could have had some effect on the kidneys by the COVID. There other causes of chronic kidney disease as well including Interstitial nephritis, glomerulonephritis but these are less likely in this clinical scenario. The patient has acute kidney injury as well. renal ultrasound shows a bladder mass and mild right hydronephrosis. Fractional excretion of urea shows pre renal azotemia. Urine protein to creatinine ratio was 240 UA shows some red cells and some white cells. CK is normal Etiology of renal failure is probably a combination of dehydration and pneumonia as well as obstruction of the right kidney.. he is still getting bladder irrigation so it is hard to tell what his urine output is. His creatinine is a little worse. I ordered a repeat renal ultrasound and this time it shows moderate hydronephrosis instead of mild hydronephrosis and so I think probably the ureteral orifice is being closed off and that is why his creatinine is higher. Consider PCN tomorrow if things do not improve? (2) Lung infiltrate: Code(s): R91.8 - Other nonspecific abnormal finding of lung field Status: Acute Assessment and Plan: the patient has infiltrate on his chest x-ray. He was diagnosed with pneumonia and is getting some antibiotics. (3) Hypertension: Qualifiers: Hypertension type: primary hypertension Qualified Code(s): I10 - Essential (primary) hypertension Code(s): I10 - Essential (primary) hypertension Status: Chronic Assessment and Plan: Patient has hypertension. His blood pressure is under good control (4) Acidosis: Code(s): E87.20 - Acidosis, unspecified Status: Acute Assessment and Plan: His bicarbonate level is a little bit on the low side. This may be due to the renal insufficiency with low production of ammonia. his bicarbonate level is in the high teens. He is on sodium bicarbonate supplementation Subjective Date/time seen: 09/03/22 12:15 Interval history: Edward is lying in bed comfortably Still not much of an appetite. No shortness of breath. Feels about the same. Exam Narrative: WDWN in NAD skin no rash or subcu nodule head ncat lungs clear bilaterally cor reg no rub or gallop abd BS+ nontender and soft ext no edema. Objective Data Vital Signs Vital Signs: Vital Signs - 24 hr 09/02/22 14:00 09/02/22 19:55 09/03/22 05:09 Temperature 36.7 C 36.6 C 36.5 C Pulse Rate 62 67 65 Respiratory Rate 18 20 20 Blood Pressure 95/54 L 92/55 L 92/53 L Pulse Oximetry 96 96 95 Oxygen Delivery Oxygen Flow Rate 09/03/22 09:27 09/03/22 08:00 Temperature Pulse Rate 63 Respiratory Rate Blood Pressure Pulse Oximetry 93 Oxygen Delivery Nasal Cannula Oxygen Flow Rate 1.5 Intake/Output Intake/Output: Intake & Output 08/31/22 09/01/22 09/02/22 09/03/22 23:59 23:59 23:59 23:59 Intake Total 3620 4890 1682 670 Output Total 1300 5050 4000 3925 Balance 3488 -614 -4286 -6803 Meds/Results Medications: Active Medications Generic Name Dose Route Start Last Admin Trade Name Freq PRN Reason Stop Dose Admin Acetaminophen 650 mg 09/02/22 08:32 Acetaminophen 325 Mg Tablet PO Q4H PRN Mil
[2022-09-03 13:20] LABS: Albumin Pleural Fluid 2.1 g/dL
[2022-09-03] MEDS: MEGESTROL ACETATE (*CHEMO) 40 MG TABLET PO ×3 (13:55→20:30)
[2022-09-03 14:00] VITALS: BP 99/53; PULSE 68; RESP 20; TEMP 36.6; O2SAT 96
[2022-09-03 20:00] VITALS: O2SAT 98
[2022-09-03] MEDS: traZODone HCL 50 MG TABLET PO (20:35)
[2022-09-03 22:00] VITALS: BP 98/58; PULSE 66; RESP 16; TEMP 36.6; O2SAT 99
[2022-09-04] VITALS (7 sets, daily range): BP systolic 95–98; BP diastolic 59–65; PULSE 62–96; RESP 18–22; TEMP 36.6–36.7; O2SAT 94–96
[2022-09-04 06:16] LABS: Hematocrit 33.3 % (42.0-52.0); Hemoglobin 10.9 g/dL (14.0-18.0); Mean Corpuscular HGB Conc 32.7 g/dl (32-36); Mean Corpuscular Hemoglobin 29.5 pg (26-34); Mean Platelet Volume 8.9 fl (7.4-10.4); Platelet Count Result 292 k/mm3 (150-375); Red Cell Distribution Width 13.8 % (11.5-14.5); White Blood Count 15.3 K/mm3 (4.5-10.0)
[2022-09-04 06:29] LABS: Alanine Aminotransferase 49 U/L (6-50); Albumin Level 2.8 g/dL (3.5-5.1); Alkaline Phosphatase 240 U/L (38-126); Anion Gap 15 mmol/L (8-16); Aspartate Amino Transferase 45 U/L (17-59); Bilirubin,Total 0.2 mg/dL (0.2-1.3); Blood Urea Nitrogen 99 mg/dL (9-20); Calcium 8.3 mg/dL (8.4-10.2); Carbon Dioxide 16 mmol/L (22-30); Chloride 104 mmol/L (98-107); Estimated CRCL calculation 16 ml/min; Estimated Glomerular Filt Rate 15; Glucose 115 mg/dL (65-110); Magnesium 2.4 mg/dL (1.6-2.3); Phosphorus 4.7 mg/dL (2.5-4.5); Potassium 4.3 mmol/L (3.4-5.0); Sodium 135 mmol/L (137-145)
--- NOTE | 2022-09-04 07:41 | WPDUROPN2 ---
Progress Note: A&P Assessment and Plan (1) Bladder mass: Code(s): N32.89 - Other specified disorders of bladder Status: Acute Assessment and Plan: Will stop CBI but leave catheter indwelling. Right PCN later today. Subjective Subjective Date/Time Seen: 09/04/22 07:41 Comfortable, no c/o. Understands indication for right PCN tube. Review of Systems Cardiovascular: Cardiovascular: Denies chest pain, Denies lightheadedness, Denies palpitations and Denies dyspnea Respiratory: Respiratory: Denies dyspnea Gastrointestinal: Gastrointestinal: Denies diarrhea, Denies nausea and Denies vomiting Genitourinary: Genitourinary: Denies hematuria and Denies dysuria Endocrine: Endocrine: Denies palpitations Exam Const: General: no acute distress Resp: Effort & Inspection: normal respiratory effort GI: Inspection: non-distended GI Palp: No abdominal tenderness and No Guarding due to palpation present (GI) Auscultation: normal bowel sounds Urinary Catheter: Urinary Catheter: patent and draining and urine clear Objective Data Vital Signs Vital Signs: Vital Signs - 24 hr 09/03/22 09:27 09/03/22 08:00 09/03/22 14:00 Temperature 97.9 F Pulse Rate 63 68 Respiratory Rate 20 Blood Pressure 99/53 L Pulse Oximetry 93 96 Oxygen Delivery Nasal Cannula Oxygen Flow Rate 1.5 09/03/22 20:00 09/03/22 22:00 09/04/22 05:00 Temperature 97.9 F Pulse Rate 66 Respiratory Rate 16 Blood Pressure 98/58 L Pulse Oximetry 98 99 96 Oxygen Delivery Nasal Cannula Nasal Cannula Oxygen Flow Rate 1.5 1 09/04/22 06:00 09/04/22 06:12 Temperature 98.0 F Pulse Rate 96 Respiratory Rate 20 Blood Pressure 98/60 L 98/60 L Pulse Oximetry 96 94 Oxygen Delivery Oxygen Flow Rate Intake/Output Intake/Output: Intake & Output 09/01/22 09/02/22 09/03/22 09/04/22 23:59 23:59 23:59 23:59 Intake Total 4890 1682 790 Output Total 5050 6755 6385 150 Balance -160 -2318 -3485 -150 Meds/Results Medications: Active Medications Generic Name Dose Route Start Last Admin Trade Name Freq PRN Reason Stop Dose Admin Acetaminophen 650 mg 09/02/22 08:32 Acetaminophen 325 Mg Tablet PO Q4H PRN Mild Pain (1-3) or Fever Hydrocodone Bitart/Acetaminophen 1 tab 09/02/22 08:32 Hydrocodone/Acetaminophen (*Crx) 5-325 Mg Tablet PO Q6H PRN Pain Rated 4-6 Amlodipine Besylate 5 mg 09/03/22 09:00 09/03/22 09:25 Amlodipine Besylate 5 Mg Tablet PO 5 mg DAILY MALA Administration Atenolol 100 mg 08/30/22 09:00 09/03/22 09:27 Atenolol 50 Mg Tablet PO 100 mg DAILY MALA Administration Cefuroxime Axetil 500 mg 09/01/22 09:00 09/03/22 09:26 Cefuroxime Axetil 250 Mg Tablet PO 09/05/22 08:59 500 mg DAILY MALA Administration Fentanyl Citrate 25 mcg 09/01/22 10:46 09/01/22 13:10 Fentanyl Citrate Inj (*Crx) 100 Mcg/2 Ml Vial IV PUSH 25 mcg Q2M PRN Administration Pain Megestrol Acetate 40 mg 09/03/22 13:00 09/03/22 20:30 Megestrol Acetate (*Chemo) 40 Mg Tablet PO 40 mg QID MALA Administration Ondansetron HCl 4 mg 09/01/22 10:46 Ondansetron Inj 4 Mg/2 Ml Vial IV PUSH ONCE PRN Nausea Psyllium Hydrophilic Mucilloid 1 packet 09/02/22 10:29 09/03/22 09:26 Psyllium Powder Packet PO 1 packet QAM MALA Administration Saccharomyces Boulardii 250 mg 08/31/22 17:00 09/03/22 17:22 Saccharomyces Boulardii 250 Mg Capsule PO 250 mg BID MALA Administration Sodium Bicarbonate 1,300 mg 08/31/22 10:40 09/03/22 17:22 Sodium Bicarbonate Tab 650 Mg Tablet PO 1,300 mg BID MALA Administration Trazodone HCl 50 mg 09/03/22 12:56 09/03/22 20:35 Trazodone Hcl 50 Mg Tablet PO 50 mg HS PRN Administration Insomnia Radiology Results: ITS Impressions Chest CT 08/30/22 08:47 IMPRESSION: 1. Right-sided malignant pleural effusion, ascites with peritoneal carcinomatosis, lung nodules,
[2022-09-04] MEDS: MEGESTROL ACETATE (*CHEMO) 40 MG TABLET PO ×4 (08:18→20:59)
[2022-09-04] MEDS: SODIUM BICARBONATE TAB 650 MG TABLET 1300 MG PO ×3 (08:18→16:21)
[2022-09-04] MEDS: SACCHAROMYCES BOULARDII 250 MG CAPSULE PO ×2 (08:19→16:20)
[2022-09-04] MEDS: CEFUROXIME AXETIL 250 MG TABLET 500 MG PO (08:19)
[2022-09-04] MEDS: atenoloL 25 MG TABLET PO (10:04)
--- NOTE | 2022-09-04 12:08 | PM.PNNEP ---
Progress Note: A&P Assessment and Plan (1) Acute kidney injury superimposed on CKD: Code(s): N17.9 - Acute kidney failure, unspecified; N18.9 - Chronic kidney disease, unspecified Status: Acute Assessment and Plan: Tad has chronic kidney disease. His creatinine has been relatively stable at about 1.3 since 2019. He could have hypertensive nephrosclerosis because he has had hypertension for a long time. he has hyperlipidemia and along with the high blood pressure this puts him at higher risk for having some small-vessel vascular disease in the kidneys. On the other hand the creatinine seemed to worsen in 2019 and that is when he had COVID so he could have had some effect on the kidneys by the COVID. There other causes of chronic kidney disease as well including Interstitial nephritis, glomerulonephritis but these are less likely in this clinical scenario. The patient has acute kidney injury as well. renal ultrasound shows a bladder mass and mild right hydronephrosis. repeat renal ultrasound shows moderate right hydronephrosis and ascites. Fractional excretion of urea shows pre renal azotemia. Urine protein to creatinine ratio was 240 UA shows some red cells and some white cells. CK is normal Etiology of renal failure is probably a combination of dehydration and pneumonia as well as obstruction of the right kidney.. His creatinine has been rising the last couple of days. I talked with Dr. Ojeda. in light of the moderate right hydronephrosis which used to be mild we suspect that the kidney is being progressively more obstructed. Dr. 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 He has ordered a right percutaneous nephrostomy tube. This will hopefully improve kidney function. If this does not that, then consider allergic interstitial nephritis. He is on a cephalosporin. All cultures are negative. consider changing her stopping antibiotic question (2) Lung infiltrate: Code(s): R91.8 - Other nonspecific abnormal finding of lung field Status: Acute Assessment and Plan: the patient has infiltrate on his chest x-ray. He was diagnosed with pneumonia and is getting some antibiotics. (3) Hypertension: Qualifiers: Hypertension type: primary hypertension Qualified Code(s): I10 - Essential (primary) hypertension Code(s): I10 - Essential (primary) hypertension Status: Chronic Assessment and Plan: Patient has hypertension. His blood pressure is under good control (4) Acidosis: Code(s): E87.20 - Acidosis, unspecified Status: Acute Assessment and Plan: His bicarbonate level is a little bit on the low side. This may be due to the renal insufficiency with low production of ammonia. CO2 dropped a little bit. Will increase sodium bicarb. Subjective Date/time seen: 09/04/22 12:08 Interval history: Edward is lying in bed comfortably Still not much of an appetite. No shortness of breath. Feels about the same. No belly pain. No skin rash. Exam Narrative: WDWN in NAD skin no rash or subcu nodule head ncat lungs clear to auscultation cor reg no rub or gallop abd BS+ nontender and soft ext no edema or cyanosis. Objective Data Vital Signs Vital Signs: Vital Signs - 24 hr 09/03/22 14:00 09/03/22 20:00 09/03/22 22:00 Temperature 36.6 C 36.6 C Pulse Rate 68 66 Respiratory Rate 20 16 Blood Pressure 99/53 L 98/58 L Pulse Oximetry 96 98 99 Oxygen Delivery Nasal Cannula Oxygen Flow Rate 1.5 09/04/22 05:00 09/04/22 06:00 09/04/22 06:12 Temperature 36.7 C Pulse Rate 96 Respiratory Rate 20 Blood Pressure 98/60 L 98/60 L Pulse Oximetry 96 96 94 Oxygen Delivery Nasal Cannula Oxygen Flow Rate 1 09/04/22 10:04 09/04/22 08:00 Temperature Pulse Rate 96 Respiratory Ra
[2022-09-04 13:15] LABS: CA 19-9 203 U/mL (<34)
--- NOTE | 2022-09-04 14:55 | P.PNIM_ITS ---
Progress Note: A&P Assessment and Plan (1) Acute kidney injury superimposed on CKD: Code(s): N17.9 - Acute kidney failure, unspecified; N18.9 - Chronic kidney disease, unspecified Status: Acute Assessment and Plan: Acute on chronic disease. BUN 101, creatinine 3.1, GFR 20. Baseline BUN 28-30, creatinine 1.3-1.4, GFR 49, CKD stage 3 * Continue IV hydration NS@75 mL/hour. * Nephrology consulted and appreciate recommendations. * hold lisinopril and hydrochlorothiazide. Hold nephrotoxic agents. * Renal US - mild right hydronephrosis and 4.1 cm bladder mass versus clot * Trend BMP. Monitor electrolytes. * Monitor I/O. * 08/31/22 BUN 90, creatinine 2.6, GFR 24. Continue IV fluids and management per Nephrology * 09/01/22 BUN 90, creatinine 2.7, GFR 23. Continue IV fluids. Patient having retrograde pyelogram today. Nephrology following. Repeat labs in am. * 09/02/22 renal function unchanged. * 09/03/2022 cr worsened followed by Nephrology. 2.60>2.70>3.30 * 09/04/22: Upward trend to Cr of 3.9 and BUN of 99 today. This correlates with pt's complaint of overall fatigue. Nephrology is managing. In addition he is going for placement a right-sided percutaneous nephrostomy tube today. We will continue to minimize any nephrotoxic agents and continue to follow Nephrology's lead in the management of his kidney function. (2) Lung infiltrate: Code(s): R91.8 - Other nonspecific abnormal finding of lung field Status: Acute Assessment and Plan: CXR with right mid and lower lung infiltrate concerning for pneumonia or atelectasis * Started on Rocephin 1 gram IV Q24 and Zithromax 500 mg IV Q24 hours, started 08/29/22 in ED * s/p thoracentesis with cultures pending * CT chest - concerning for hilar lymphadenopathy, bilateral lung nodules max 10 mm, and malignant pleural effusion. * Adjust antibiotics per gram stain and pleural culture * 08/31/22 antibiotic day 3, transition to oral azithromycin 250 mg daily x 3 days and cefuroxime 500 mg daily x4 days * 09/01/22 antibiotic day 4, continue current medications. * 09/02/22 antibiotic day 5, last day of azithromycin. Continue cefuroxime for 2 more days. Repeat CXR with ?atelectasis and possible pulmonary edema. Will initiate incentive spirometry. If O2 requirement increases, will consider dose of lasix. As the patient is getting IV fluids for #1 will defer for now. * 09/04/22: Antibiotics are now complete as of today. His oxygen has been discontinued and patient is maintaining his oxygen saturations in the mid to high 90s on room air. (3) Acidosis: Code(s): E87.20 - Acidosis, unspecified Status: Acute Assessment and Plan: TCO2 18, secondary to CKD * Monitor BMP daily * Nephrology consulting and appreciate recommendations. * Sodium bicarb initiated PO by nephrology * 09/04/22: CO2 levels are declining. CO2 as an today is 16. Bicarb ordered by Nephrology. Etiologyis nephrotic secondary to patient's declining renal function. (4) Hypertension: Qualifiers: Hypertension type: primary hypertension Qualified Code(s): I10 - Essential (primary) hypertension Code(s): I10 - Essential (primary) hypertension Status: Chronic Assessment and Plan: Chronic, stable. * Continue amlodipine and atenolol. * Hold lisinopril and HCTZ while hydrating. * 09/04/22: may give atenolol but at lower doses as directed by Nephrology. Continue to hold lisinopril and hydrochlorothiazide. (5) Lung nodules: Code(s): R91.8 - Other nonspecific abnormal finding of lung field Status: Acute Assessment and Plan:
--- NOTE | 2022-09-04 14:55 | PM.IMPN ---
Progress Note: A&P Assessment and Plan (1) Acute kidney injury superimposed on CKD: Code(s): N17.9 - Acute kidney failure, unspecified; N18.9 - Chronic kidney disease, unspecified Status: Acute Assessment and Plan: Acute on chronic disease. BUN 101, creatinine 3.1, GFR 20. Baseline BUN 28-30, creatinine 1.3-1.4, GFR 49, CKD stage 3 Continue IV hydration NS@75 mL/hour. Nephrology consulted and appreciate recommendations. hold lisinopril and hydrochlorothiazide. Hold nephrotoxic agents. Renal US - mild right hydronephrosis and 4.1 cm bladder mass versus clot Trend BMP. Monitor electrolytes. Monitor I/O. 08/31/22 BUN 90, creatinine 2.6, GFR 24. Continue IV fluids and management per Nephrology 09/01/22 BUN 90, creatinine 2.7, GFR 23. Continue IV fluids. Patient having retrograde pyelogram today. Nephrology following. Repeat labs in am. 09/02/22 renal function unchanged. 09/03/2022 cr worsened followed by Nephrology. 2.60>2.70>3.30 09/04/22: Upward trend to Cr of 3.9 and BUN of 99 today. This correlates with pt's complaint of overall fatigue. Nephrology is managing. In addition he is going for placement a right-sided percutaneous nephrostomy tube today. We will continue to minimize any nephrotoxic agents and continue to follow Nephrology's lead in the management of his kidney function. (2) Lung infiltrate: Code(s): R91.8 - Other nonspecific abnormal finding of lung field Status: Acute Assessment and Plan: CXR with right mid and lower lung infiltrate concerning for pneumonia or atelectasis Started on Rocephin 1 gram IV Q24 and Zithromax 500 mg IV Q24 hours, started 08/29/22 in ED s/p thoracentesis with cultures pending CT chest - concerning for hilar lymphadenopathy, bilateral lung nodules max 10 mm, and malignant pleural effusion. Adjust antibiotics per gram stain and pleural culture 08/31/22 antibiotic day 3, transition to oral azithromycin 250 mg daily x 3 days and cefuroxime 500 mg daily x4 days 09/01/22 antibiotic day 4, continue current medications. 09/02/22 antibiotic day 5, last day of azithromycin. Continue cefuroxime for 2 more days. Repeat CXR with ?atelectasis and possible pulmonary edema. Will initiate incentive spirometry. If O2 requirement increases, will consider dose of lasix. As the patient is getting IV fluids for #1 will defer for now. 09/04/22: Antibiotics are now complete as of today. His oxygen has been discontinued and patient is maintaining his oxygen saturations in the mid to high 90s on room air. (3) Acidosis: Code(s): E87.20 - Acidosis, unspecified Status: Acute Assessment and Plan: TCO2 18, secondary to CKD Monitor BMP daily Nephrology consulting and appreciate recommendations. Sodium bicarb initiated PO by nephrology 09/04/22: CO2 levels are declining. CO2 as an today is 16. Bicarb ordered by Nephrology. Etiologyis nephrotic secondary to patient's declining renal function. (4) Hypertension: Qualifiers: Hypertension type: primary hypertension Qualified Code(s): I10 - Essential (primary) hypertension Code(s): I10 - Essential (primary) hypertension Status: Chronic Assessment and Plan: Chronic, stable. Continue amlodipine and atenolol. Hold lisinopril and HCTZ while hydrating. 09/04/22: may give atenolol but at lower doses as directed by Nephrology. Continue to hold lisinopril and hydrochlorothiazide. (5) Lung nodules: Code(s): R91.8 - Other nonspecific abnormal finding of lung field Status: Acute Assessment and Plan: CXR with possible hilar mass on admission. CT chest concerning for bilateral lung nodules and hilar lymphadenopathy with malignant pleural effusion right side, liver masses and peritoneal carcinamotosis 08/30/22 US guided thoracentesis with -1 liter fluid removed, send fluid for cytology, pH, gram stain, culture, AFB, total protein, albumin, amylase, glucose pending
[2022-09-04] MEDS: HYDROcodone/acetaminophen (*CRX) 5-325 MG TABLET 1 TAB PO ×2 (16:20→22:45)
--- NOTE | 2022-09-04 19:35 | WPDONCPN ---
Progress Note: A/P - Additional Plan Metastatic carcinoma. 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 CT scan of the chest showed right-sided malignant pleural effusion, ascites, peritoneal carcinomatosis, lung nodules, liver masses and mild mediastinal lymphadenopathy. Cytology from thoracentesis is pending. Patient is status post TURBT and pathology report is also pending. Patient was provided with my office information. Based on the pathology report he will likely be a candidate for immunotherapy. I have answered all the questions to patient's satisfaction. - Time Spent With Patient Total time spent is greater than 50% in coordination of care (as documented) at patient's floor/unit and/or counseling patient: 25 - 35 minutes Subjective Interval history: Metastatic disease Review of Systems - Review of Systems Patient complain of tiredness and fatigue but denies any hematuria. Denies any chest pain but does have some lower pelvic pain. Denies any other new complaint - Neurologic Reports system reviewed and no additional complaints, except as documented, Denies abnormal gait, Denies vertigo, Denies syncope, Denies focal weakness, Denies sensory deficit Exam Vital signs: Temp Pulse Resp BP Pulse Ox O2 Del Method O2 Flow Rate 36.6 C 65 18 97/59 L 65 L Room Air 1 09/04/22 16:13 09/04/22 16:13 09/04/22 16:13 09/04/22 16:13 09/04/22 16:13 09/04/22 08:00 09/04/22 05:00 Narrative: Lungs are clear to auscultation bilaterally Cardiovascular regular rate rhythm no murmurs Abdomen soft nontender nondistended bowel sounds are positive Extremities is no edema PN: Objective Data - Labs CBC & Chem 7: 09/04/22 06:01 09/04/22 06:01 Labs: Laboratory Results - last 24 hr 08/30/22 09/04/22 09/04/22 16:19 06:01 06:01 WBC 15.3 H RBC 3.70 L Hgb 10.9 L Hct 33.3 L MCV 90.0 MCH 29.5 MCHC 32.7 RDW 13.8 Plt Count 292 MPV 8.9 Sodium 135 L Potassium 4.3 Chloride 104 Carbon Dioxide 16 L Anion Gap 15 BUN 99 H Creatinine 3.90 H Estim Creat Clear Calc 16 Estimated GFR 15 L Glucose 115 H Calcium 8.3 L Phosphorus 4.7 H Magnesium 2.4 H Total Bilirubin 0.2 AST 45 ALT 49 Alkaline Phosphatase 240 H Total Protein 6.0 L Albumin 2.8 L CA 19-9 Antigen 203 H
[2022-09-05 01:50] VITALS: BP 80/62; PULSE 65; RESP 20; TEMP 36.9; O2SAT 97
[2022-09-05] MEDS: SODIUM CHLORIDE 0.9% IV 1,000 ML 500 ML IV CONT (02:14)
[2022-09-05 04:19] VITALS: BP 108/70
[2022-09-05 05:46] LABS: Basophils Percent Auto 0.1 % (0.2-1.2); Eosinophils Percent Auto 0.2 % (0-4.4); Hematocrit 33.8 % (42.0-52.0); Hemoglobin 10.7 g/dL (14.0-18.0); Immature Granulocyte Absolute 0.22 K/mm3 (0.00-0.031); Immature Granulocyte Percent A 1.2 % (0-0.5); Lymphocytes Absolute Auto 2.92 K/mm3 (0.9-3.2); Lymphocytes Percent Auto 16.3 % (18.3-44.2); Mean Corpuscular HGB Conc 31.7 g/dl (32-36); Mean Corpuscular Volume 91.6 fl (80-100); Mean Platelet Volume 8.7 fl (7.4-10.4); Monocytes Absolute Auto 0.9 K/mm3 (0.1-0.6); Monocytes Percent Auto 5.1 % (2.6-8.5); Neutrophils Absolute Auto 13.8 K/mm3 (1.3-6.7); Neutrophils Percent Auto 77.1 % (45.5-73.1); Platelet Count Result 296 k/mm3 (150-375); Red Blood Count 3.69 M/mm3 (4.6-6.20); Red Cell Distribution Width 13.9 % (11.5-14.5); White Blood Count 17.9 K/mm3 (4.5-10.0)
[2022-09-05 05:57] LABS: Albumin Level 2.7 g/dL (3.5-5.1); Anion Gap 16 mmol/L (8-16); Blood Urea Nitrogen 109 mg/dL (9-20); Calcium 8.1 mg/dL (8.4-10.2); Carbon Dioxide 17 mmol/L (22-30); Chloride 104 mmol/L (98-107); Estimated CRCL calculation 14 ml/min; Estimated Glomerular Filt Rate 13; Glucose 97 mg/dL (65-110); Phosphorus 5.4 mg/dL (2.5-4.5); Potassium 4.3 mmol/L (3.4-5.0); Sodium 137 mmol/L (137-145)
[2022-09-05 06:00] VITALS: BP 100/58; PULSE 60; RESP 20; TEMP 36.7; O2SAT 96
[2022-09-05 06:03] LABS: Alanine Aminotransferase 46 U/L (6-50); Albumin Level 2.7 g/dL (3.5-5.1); Alkaline Phosphatase 230 U/L (38-126); Anion Gap 15 mmol/L (8-16); Aspartate Amino Transferase 47 U/L (17-59); Bilirubin,Total 0.3 mg/dL (0.2-1.3); Blood Urea Nitrogen 108 mg/dL (9-20); Calcium 8.1 mg/dL (8.4-10.2); Carbon Dioxide 19 mmol/L (22-30); Chloride 103 mmol/L (98-107); Estimated CRCL calculation 14 ml/min; Estimated Glomerular Filt Rate 13; Glucose 98 mg/dL (65-110); Magnesium 2.4 mg/dL (1.6-2.3); Potassium 4.2 mmol/L (3.4-5.0); Sodium 137 mmol/L (137-145)
[2022-09-05] MEDS: HYDROcodone/acetaminophen (*CRX) 5-325 MG TABLET 1 TAB PO ×2 (08:17→16:41)
[2022-09-05] MEDS: PSYLLIUM POWDER PACKET 1 PACKET PO (08:19)
[2022-09-05] MEDS: SODIUM BICARBONATE TAB 650 MG TABLET 1300 MG PO ×2 (08:19→16:40)
[2022-09-05] MEDS: SACCHAROMYCES BOULARDII 250 MG CAPSULE PO ×2 (08:19→16:40)
[2022-09-05] MEDS: MEGESTROL ACETATE (*CHEMO) 40 MG TABLET PO ×3 (08:19→20:04)
--- NOTE | 2022-09-05 10:01 | P.PNIM_ITS ---
Progress Note: A&P Assessment and Plan (1) Acute kidney injury superimposed on CKD: Code(s): N17.9 - Acute kidney failure, unspecified; N18.9 - Chronic kidney disease, unspecified Status: Acute Assessment and Plan: * Acute on chronic disease. BUN 109, creatinine 4.30, GFR 13. Baseline BUN 28- 30, creatinine 1.3-1.4, GFR 49, CKD stage 3 * Continue IV hydration NS@75 mL/hour. * Nephrology consulted and appreciate recommendations. * hold lisinopril and hydrochlorothiazide. Hold nephrotoxic agents. * Renal US - mild right hydronephrosis and 4.1 cm bladder mass versus clot * Trend BMP. Monitor electrolytes. * Monitor I/O. * Ur Na 42, Cr 81.1 * Fena 1.6, ATN (2) Lung infiltrate: Code(s): R91.8 - Other nonspecific abnormal finding of lung field Status: Acute Assessment and Plan: * CXR with right mid and lower lung infiltrate concerning for pneumonia or atelectasis * Rocephin 1 gram IV Q24 and Zithromax 500 mg IV Q24 hours, DC'd * s/p thoracentesis with cultures pending * CT chest - concerning for hilar lymphadenopathy, bilateral lung nodules max 10 mm, and malignant pleural effusion. * Adjust antibiotics per gram stain and pleural culture (3) Acidosis: Code(s): E87.20 - Acidosis, unspecified Status: Acute Assessment and Plan: * TCO2 18, secondary to CKD * Monitor BMP daily * Nephrology consulting and appreciate recommendations. * Sodium bicarb initiated PO by nephrology (4) Hypertension: Qualifiers: Hypertension type: primary hypertension Qualified Code(s): I10 - Essential (primary) hypertension Code(s): I10 - Essential (primary) hypertension Status: Chronic Assessment and Plan: * Chronic, stable. * Continue amlodipine and atenolol. * Hold lisinopril and HCTZ while hydrating. * BP remains stable at 100/58 (5) Lung nodules: Code(s): R91.8 - Other nonspecific abnormal finding of lung field Status: Acute Assessment and Plan: * CXR with possible hilar mass on admission. * CT chest concerning for bilateral lung nodules and hilar lymphadenopathy with malignant pleural effusion right side, liver masses and peritoneal carcinomatosis * 08/30/22 US guided thoracentesis with -1 liter fluid removed, send fluid for cytology, pH 7.263, gram stain, culture, AFB, total protein 4.1, albumin 2.1, amylase , glucose 48 * Oncology consulted and appreciate recommendations. (6) Liver mass: Code(s): R16.0 - Hepatomegaly, not elsewhere classified Status: Acute Assessment and Plan: Elevated AST 100>65, ALT 100>65, Alk phos 312>261, Tbili 0.5>0.4. Improving trending down. * Abd US with cirrhosis, hepatomegaly and ascites noted on CT scan * Abdomen tight * Paracentesis ordered and 3100ml of yellow fluid (7) Generalized weakness: Code(s): R53.1 - Weakness Status: Acute Assessment and Plan: secondary to acute infection and/or malignant disease * PT/OT evaluation. * Continue medical management as above. * Stable * 09/04/22: Multifactorial, but most likely secondary to renal function and chronic disease was believed to be a metastatic process (8) Bladder mass: Code(s): N32.89 - Other specified disorders of bladder Status: Acute Assessment and Plan: *
--- NOTE | 2022-09-05 10:01 | PM.IMPN ---
Progress Note: A&P Assessment and Plan (1) Acute kidney injury superimposed on CKD: Code(s): N17.9 - Acute kidney failure, unspecified; N18.9 - Chronic kidney disease, unspecified Status: Acute Assessment and Plan: Acute on chronic disease. BUN 109, creatinine 4.30, GFR 13. Baseline BUN 28-30, creatinine 1.3-1.4, GFR 49, CKD stage 3 Continue IV hydration NS@75 mL/hour. Nephrology consulted and appreciate recommendations. hold lisinopril and hydrochlorothiazide. Hold nephrotoxic agents. Renal US - mild right hydronephrosis and 4.1 cm bladder mass versus clot Trend BMP. Monitor electrolytes. Monitor I/O. Ur Na 42, Cr 81.1 Fena 1.6, ATN (2) Lung infiltrate: Code(s): R91.8 - Other nonspecific abnormal finding of lung field Status: Acute Assessment and Plan: CXR with right mid and lower lung infiltrate concerning for pneumonia or atelectasis Rocephin 1 gram IV Q24 and Zithromax 500 mg IV Q24 hours, DC'd s/p thoracentesis with cultures pending CT chest - concerning for hilar lymphadenopathy, bilateral lung nodules max 10 mm, and malignant pleural effusion. Adjust antibiotics per gram stain and pleural culture (3) Acidosis: Code(s): E87.20 - Acidosis, unspecified Status: Acute Assessment and Plan: TCO2 18, secondary to CKD Monitor BMP daily Nephrology consulting and appreciate recommendations. Sodium bicarb initiated PO by nephrology (4) Hypertension: Qualifiers: Hypertension type: primary hypertension Qualified Code(s): I10 - Essential (primary) hypertension Code(s): I10 - Essential (primary) hypertension Status: Chronic Assessment and Plan: Chronic, stable. Continue amlodipine and atenolol. Hold lisinopril and HCTZ while hydrating. BP remains stable at 100/58 (5) Lung nodules: Code(s): R91.8 - Other nonspecific abnormal finding of lung field Status: Acute Assessment and Plan: CXR with possible hilar mass on admission. CT chest concerning for bilateral lung nodules and hilar lymphadenopathy with malignant pleural effusion right side, liver masses and peritoneal carcinomatosis 08/30/22 US guided thoracentesis with -1 liter fluid removed, send fluid for cytology, pH 7.263, gram stain, culture, AFB, total protein 4.1, albumin 2.1, amylase , glucose 48 Oncology consulted and appreciate recommendations. (6) Liver mass: Code(s): R16.0 - Hepatomegaly, not elsewhere classified Status: Acute Assessment and Plan: Elevated AST 100>65, ALT 100>65, Alk phos 312>261, Tbili 0.5>0.4. Improving trending down. Abd US with cirrhosis, hepatomegaly and ascites noted on CT scan Abdomen tight Paracentesis ordered and 3100ml of yellow fluid (7) Generalized weakness: Code(s): R53.1 - Weakness Status: Acute Assessment and Plan: secondary to acute infection and/or malignant disease PT/OT evaluation. Continue medical management as above. Stable 09/04/22: Multifactorial, but most likely secondary to renal function and chronic disease was believed to be a metastatic process (8) Bladder mass: Code(s): N32.89 - Other specified disorders of bladder Status: Acute Assessment and Plan: Noted on US, hyperechoic bladder mass 4.1 cm Consult Urology and appreciate recommendations. 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 09/02/22 POD1 TURBT, CBI per urology. pathology pending. Presumed primary lesion. 09/04/22: pathology still pending. Today is postop day 4. Right-sided nephrostomy tube to be placed today. 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
[2022-09-05 10:57] LABS: INR 1.3; Prothrombin Time 15.4 Seconds (11.1-14.7)
--- NOTE | 2022-09-05 10:57 | PM.PNNEP ---
Progress Note: A&P Assessment and Plan (1) Acute kidney injury superimposed on CKD: Code(s): N17.9 - Acute kidney failure, unspecified; N18.9 - Chronic kidney disease, unspecified Status: Acute Assessment and Plan: Tad has chronic kidney disease. His creatinine has been relatively stable at about 1.3 since 2019. He could have hypertensive nephrosclerosis because he has had hypertension for a long time. he has hyperlipidemia and along with the high blood pressure this puts him at higher risk for having some small-vessel vascular disease in the kidneys. On the other hand the creatinine seemed to worsen in 2019 and that is when he had COVID so he could have had some effect on the kidneys by the COVID. There other causes of chronic kidney disease as well including Interstitial nephritis, glomerulonephritis but these are less likely in this clinical scenario. The patient has acute kidney injury as well. renal ultrasound shows a bladder mass and mild right hydronephrosis. repeat renal ultrasound shows moderate right hydronephrosis and ascites. Fractional excretion of urea shows pre renal azotemia. Urine protein to creatinine ratio was 240 UA shows some red cells and some white cells. CK is normal Etiology of renal failure is probably a combination of dehydration and pneumonia as well as obstruction of the right kidney. his creatinine has risen substantially over the last few days. Yesterday a PCN was placed into the right kidney and there is very little urine output there from. [place] catheter has very little urine output as well. Etiology of the sudden onset renal failure is unclear. Perhaps the left kidney is now becoming obstructed which is why there is no output from the [place]. And perhaps the right kidney was obstructed for a long period of time leading to ATN and therefore low urine output from that even though there is a PCN. He does not seem to have any recent issues that would lead to bilateral ATN. Perhaps he has an abdominal process indicated by his abdominal distension leading to ATN. He has developed a significant amount of ascites and so 3rd spacing could do this as well if he has pre renal azotemia. Ascites could be from metastases or from liver issues. It is remotely possible that the cancer eroded through the bladder wall. I talked with ERICA Schultz. He is going to get a CT scan of the belly because of the distention. he is also going to have a paracentesis done to investigate the fluid. Albumin is a little low but not too bad. Liver enzymes are okay. I will check urine electrolytes coming from each catheter as well. (2) Lung infiltrate: Code(s): R91.8 - Other nonspecific abnormal finding of lung field Status: Acute Assessment and Plan: the patient has infiltrate on his chest x-ray. He was diagnosed with pneumonia . Antibiotics are finished. (3) Hypertension: Qualifiers: Hypertension type: primary hypertension Qualified Code(s): I10 - Essential (primary) hypertension Code(s): I10 - Essential (primary) hypertension Status: Chronic Assessment and Plan: Patient has hypertension. His blood pressure is under good control (4) Acidosis: Code(s): E87.20 - Acidosis, unspecified Status: Acute Assessment and Plan: His bicarbonate level is a little bit on the low side. This may be due to the renal insufficiency with low production of ammonia. CO2 Is about the same at 17. He is on oral bicarbonate. Subjective Date/time seen: 09/05/22 10:57 Interval history: the patient is sitting up in a chair eating some breakfast. He does not have much of an appetite. He is weaker today. No nausea or shortness of breath Exam Narrative: WDWN in NAD skin no rash or subcu nodule head ncat lungs clear to auscultation cor reg no rub or gallop abd BS+ nontend
[2022-09-05 10:58] LABS: Partial Thromboplastin Time 25.9 SECONDS (22.3-36.8)
[2022-09-05 12:03] LABS: Creatinine Urine 256.8 mg/dL
[2022-09-05 12:05] LABS: Sodium Urine Random 49 meq/L
[2022-09-05 12:06] LABS: Creatinine Urine 81.1 mg/dL
[2022-09-05 12:12] LABS: Sodium Urine Random 42 meq/L
[2022-09-05 13:07] LABS: Total Protein Urine Random 415 mg/dL; Ur Ttl Prot Creatinine Ratio 5.12 mg/mg (0-0.20)
[2022-09-05 13:07] LABS: Total Protein Urine Random 362 mg/dL; Ur Ttl Prot Creatinine Ratio 1.41 mg/mg (0-0.20)
[2022-09-05 15:27] VITALS: BP 107/56; PULSE 57; RESP 18; TEMP 36.9; O2SAT 96
[2022-09-05 19:10] LABS: ANCA Screen Negative (Negative)
[2022-09-05 20:45] VITALS: BP 100/56; PULSE 62; RESP 18; TEMP 36.3; O2SAT 96
[2022-09-06] MEDS: HYDROcodone/acetaminophen (*CRX) 5-325 MG TABLET 1 TAB PO ×3 (02:26→18:42)
[2022-09-06 05:16] VITALS: BP 100/61; PULSE 66; RESP 20; TEMP 36.6; O2SAT 96
[2022-09-06 06:07] LABS: Alanine Aminotransferase 40 U/L (6-50); Albumin Level 2.6 g/dL (3.5-5.1); Alkaline Phosphatase 233 U/L (38-126); Anion Gap 14 mmol/L (8-16); Aspartate Amino Transferase 44 U/L (17-59); Bilirubin,Total 0.3 mg/dL (0.2-1.3); Blood Urea Nitrogen 113 mg/dL (9-20); Carbon Dioxide 18 mmol/L (22-30); Chloride 101 mmol/L (98-107); Estimated CRCL calculation 15 ml/min; Estimated Glomerular Filt Rate 14; Glucose 102 mg/dL (65-110); Magnesium 2.4 mg/dL (1.6-2.3); Phosphorus 5.6 mg/dL (2.5-4.5); Potassium 4.6 mmol/L (3.4-5.0); Sodium 133 mmol/L (137-145)
[2022-09-06 06:10] LABS: Basophils Percent Auto 0.1 % (0.2-1.2); Eosinophils Absolute Auto 0.1 K/mm3 (0-0.3); Eosinophils Percent Auto 0.4 % (0-4.4); Hematocrit 33.6 % (42.0-52.0); Hemoglobin 10.9 g/dL (14.0-18.0); Immature Granulocyte Absolute 0.19 K/mm3 (0.00-0.031); Immature Granulocyte Percent A 1.2 % (0-0.5); Lymphocytes Absolute Auto 2.03 K/mm3 (0.9-3.2); Lymphocytes Percent Auto 12.5 % (18.3-44.2); Mean Corpuscular HGB Conc 32.4 g/dl (32-36); Mean Corpuscular Hemoglobin 28.5 pg (26-34); Mean Platelet Volume 9.1 fl (7.4-10.4); Monocytes Absolute Auto 0.8 K/mm3 (0.1-0.6); Neutrophils Absolute Auto 13.1 K/mm3 (1.3-6.7); Neutrophils Percent Auto 80.8 % (45.5-73.1); Platelet Count Result 289 k/mm3 (150-375); Red Blood Count 3.82 M/mm3 (4.6-6.20); Red Cell Distribution Width 13.9 % (11.5-14.5); White Blood Count 16.2 K/mm3 (4.5-10.0)
--- NOTE | 2022-09-06 08:45 | PM.IMPN ---
Progress Note: A&P Assessment and Plan (1) Acute kidney injury superimposed on CKD: Code(s): N17.9 - Acute kidney failure, unspecified; N18.9 - Chronic kidney disease, unspecified Status: Acute Assessment and Plan: Acute on chronic disease. BUN 113, creatinine 4.10, GFR 14. Baseline BUN 28-30, creatinine 1.3-1.4, GFR 49, CKD stage 3 Nephrology consulted and appreciate recommendations. hold lisinopril and hydrochlorothiazide. Hold nephrotoxic agents. Renal US - mild right hydronephrosis and 4.1 cm bladder mass Noted on CT CT also notes multiple renal stones. Nephrology on the case dialysis in consideration Trend BMP. Monitor electrolytes. Monitor I/O. Ur Na 42, Cr 81.1 Fena 1.6, ATN (2) Lung infiltrate: Code(s): R91.8 - Other nonspecific abnormal finding of lung field Status: Acute Assessment and Plan: CXR with right mid and lower lung infiltrate concerning for pneumonia or atelectasis Rocephin 1 gram IV Q24 and Zithromax 500 mg IV Q24 hours, DC'd s/p thoracentesis pleural fluid cytology came back for positive malignancy, high-grade carcinoma compatible with urothelial origin Oncology on board CT chest - concerning for hilar lymphadenopathy, bilateral lung nodules max 10 mm, and malignant pleural effusion. (3) Acidosis: Code(s): E87.20 - Acidosis, unspecified Status: Acute Assessment and Plan: TCO2 18, secondary to CKD Monitor BMP daily Nephrology consulting and appreciate recommendations. Sodium bicarb initiated PO by nephrology (4) Hypertension: Qualifiers: Hypertension type: primary hypertension Qualified Code(s): I10 - Essential (primary) hypertension Code(s): I10 - Essential (primary) hypertension Status: Chronic Assessment and Plan: Chronic, stable. Continue amlodipine and atenolol. Hold lisinopril and HCTZ while hydrating. BP remains stable at 100/61 (5) Lung nodules: Code(s): R91.8 - Other nonspecific abnormal finding of lung field Status: Acute Assessment and Plan: CXR with possible hilar mass on admission. CT chest concerning for bilateral lung nodules and hilar lymphadenopathy with malignant pleural effusion right side, liver masses and peritoneal carcinomatosis 08/30/22 US guided thoracentesis with -1 liter fluid removed, send fluid for cytology, pH 7.263, gram stain no growth, culture no growth, AFB, total protein 4.1, albumin 2.1, amylase , glucose 48 Oncology consulted and appreciate recommendations. (6) Liver mass: Code(s): R16.0 - Hepatomegaly, not elsewhere classified Status: Acute Assessment and Plan: Elevated AST 100>65, ALT 100>65, Alk phos 312>261, Tbili 0.5>0.4. Improving trending down. current AST/ALT is 44/40 alk-phos 233 Abd US with cirrhosis, hepatomegaly and ascites noted on CT scan Abdomen tight Paracentesis ordered and 3100ml of yellow fluid (7) Generalized weakness: Code(s): R53.1 - Weakness Status: Acute Assessment and Plan: secondary to acute infection and/or malignant disease PT/OT evaluation. Continue medical management as above. Stable likely related to disease process (8) Bladder mass: Code(s): N32.89 - Other specified disorders of bladder Status: Acute Assessment and Plan: Noted on US, hyperechoic bladder mass 4.1 cm Consult Urology and appreciate recommendations. 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 LFTs elevated on admission. No jaundice. Avoid hepatotoxic agents.
--- NOTE | 2022-09-06 08:45 | P.PNIM_ITS ---
Progress Note: A&P Assessment and Plan (1) Acute kidney injury superimposed on CKD: Code(s): N17.9 - Acute kidney failure, unspecified; N18.9 - Chronic kidney disease, unspecified Status: Acute Assessment and Plan: * Acute on chronic disease. BUN 113, creatinine 4.10, GFR 14. Baseline BUN 28- 30, creatinine 1.3-1.4, GFR 49, CKD stage 3 * Nephrology consulted and appreciate recommendations. * hold lisinopril and hydrochlorothiazide. Hold nephrotoxic agents. * Renal US - mild right hydronephrosis and 4.1 cm bladder mass Noted on CT * CT also notes multiple renal stones. * Nephrology on the case * dialysis in consideration * Trend BMP. Monitor electrolytes. * Monitor I/O. * Ur Na 42, Cr 81.1 * Fena 1.6, ATN (2) Lung infiltrate: Code(s): R91.8 - Other nonspecific abnormal finding of lung field Status: Acute Assessment and Plan: * CXR with right mid and lower lung infiltrate concerning for pneumonia or atelectasis * Rocephin 1 gram IV Q24 and Zithromax 500 mg IV Q24 hours, DC'd * s/p thoracentesis pleural fluid cytology came back for positive malignancy, high-grade carcinoma compatible with urothelial origin * Oncology on board * CT chest - concerning for hilar lymphadenopathy, bilateral lung nodules max 10 mm, and malignant pleural effusion. (3) Acidosis: Code(s): E87.20 - Acidosis, unspecified Status: Acute Assessment and Plan: * TCO2 18, secondary to CKD * Monitor BMP daily * Nephrology consulting and appreciate recommendations. * Sodium bicarb initiated PO by nephrology (4) Hypertension: Qualifiers: Hypertension type: primary hypertension Qualified Code(s): I10 - Essential (primary) hypertension Code(s): I10 - Essential (primary) hypertension Status: Chronic Assessment and Plan: * Chronic, stable. * Continue amlodipine and atenolol. * Hold lisinopril and HCTZ while hydrating. * BP remains stable at 100/61 (5) Lung nodules: Code(s): R91.8 - Other nonspecific abnormal finding of lung field Status: Acute Assessment and Plan: * CXR with possible hilar mass on admission. * CT chest concerning for bilateral lung nodules and hilar lymphadenopathy with malignant pleural effusion right side, liver masses and peritoneal carcinomatosis * 08/30/22 US guided thoracentesis with -1 liter fluid removed, send fluid for cytology, pH 7.263, gram stain no growth, culture no growth, AFB, total protein 4.1, albumin 2.1, amylase , glucose 48 * Oncology consulted and appreciate recommendations. (6) Liver mass: Code(s): R16.0 - Hepatomegaly, not elsewhere classified Status: Acute Assessment and Plan: * Elevated AST 100>65, ALT 100>65, Alk phos 312>261, Tbili 0.5>0.4. Improving trending down. * current AST/ALT is 44/40 alk-phos 233 * Abd US with cirrhosis, hepatomegaly and ascites noted on CT scan * Abdomen tight * Paracentesis ordered and 3100ml of yellow fluid (7) Generalized weakness: Code(s): R53.1 - Weakness Status: Acute Assessment and Plan: secondary to acute infection and/or malignant disease * PT/OT evaluation. * Continue medical management as above. * Stable * likely related to disease process (8) Bladder mass: Code(s): N32.89 - O
[2022-09-06] MEDS: SODIUM BICARBONATE TAB 650 MG TABLET 1300 MG PO ×3 (09:34→16:45)
[2022-09-06] MEDS: SACCHAROMYCES BOULARDII 250 MG CAPSULE PO ×2 (09:35→16:45)
[2022-09-06 09:37] VITALS: PULSE 64
[2022-09-06] MEDS: atenoloL 25 MG TABLET PO (09:37)
[2022-09-06 11:19] VITALS: PULSE 67; O2SAT 95
--- NOTE | 2022-09-06 11:26 | PCNFU ---
Nutrition Follow-Up Complete: Inadequate oral intake related to poor appetite, as evidence by self report reduced intake and NPO status Goal: when diet advances and medically appropriate, encourage 50-75% of meal intake, complete intake of nutritional supplement. Patient has limited progress towards goal. We will continue current goal. Pt current nutrition is Regular. Last recorded weight is 89.9 kg Bowel Motility:+BM reported 09/05 Labs Reviewed:Cr 4.10,GFR 14, BUN 113, Alb 2.6, Hgb 10.9,Hct 33.6 Meds Noted:Megace, Florastor,[place] Skin: WNL Additional Notes: Patient seen today for nutritional follow up. Paracentesis 09/05-removing 3100 ml of fluid. Eating very little today, drinking coffee. States to not liking sugar fee lemonade. He would like to try diet supplement of nutritional ice cream, which will provide an additional 300 kcals and 9 gms protein. Talked with [place], Hospitalist today regrading diet supplement changes. PO intake encouraged. Agree with diet orders. follow up in 5 days monitor appetite, meal and supplement intake, wt and labs
[2022-09-06 12:22] LABS: Amylase, Pleural Fluid 12 U/L
[2022-09-06] MEDS: PSYLLIUM POWDER PACKET 1 PACKET PO (12:35)
[2022-09-06] MEDS: MEGESTROL ACETATE (*CHEMO) 20 MG TABLET 60 MG PO ×3 (12:36→20:09)
[2022-09-06 12:45] LABS: Complement Total CH50 >60 U/mL (31-60)
[2022-09-06 14:00] VITALS: BP 94/62; PULSE 69; RESP 18; TEMP 36.3; O2SAT 97
--- NOTE | 2022-09-06 16:29 | WPDUROPN2 ---
Progress Note: A&P Assessment and Plan (1) Bladder mass: Code(s): N32.89 - Other specified disorders of bladder Status: Acute Assessment and Plan: Nephrostomy tube is draining to gravity. It was irrigated at the bedside with NS 0.9% easily, a small blood clot was removed. A total of 20cc total was used to irrigate. The patient tolerated it well. Catheter continues to drain well to gravity. Urine is clear. (2) Acute renal failure: Code(s): N17.9 - Acute kidney failure, unspecified Status: Acute Assessment and Plan: Nephrology to see, patient has maximal drainage without improvement to creatinine. 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 He has had a recently placed CT guided nephrostomy tube placed in the right kidney d/t an unsuccessful attempt at right retrograde pyelography. The tube was reportedly not draining as well this morning, however this afternoon it has picked up and seems to be draining better. Urine is clear in nephrostomy bag and draining to gravity as well as in [place] bag. The patient denies pain at the tube insertion site in his right flank and is tolerating it well. He has no appetite and has decreased activity d/t fatigue and weakness. He is having chronic urges for a BM. Post Op day: 5 Review of Systems Constitutional: Constitutional: Reports fatigue, Reports lethargy, Reports malaise, Reports poor appetite and Reports weakness Cardiovascular: Cardiovascular: Denies chest pain Respiratory: Respiratory: Reports no additional respiratory complaints Gastrointestinal: Gastrointestinal: Denies abdominal pain, Denies nausea and Denies vomiting Genitourinary: Genitourinary: Denies hematuria, Denies urinary frequency, Denies urinary hesitancy, Denies urinary incontinence and Denies urinary urgency Exam Const: General: comfortable Resp: Effort & Inspection: normal respiratory effort Cardio: Rate: regular rate GI: GI Palp: Yes Soft to palpation and No Tenderness to palpation present (GI) : General: Yes no CVA tenderness and Yes other (Right Nephrostomy tube in place with dressing taped in place, no drainage) Urinary Catheter: Urinary Catheter: patent and draining and urine clear Extrem: Right lower extremity: no edema Left lower extremity: no edema Objective Data Vital Signs Vital Signs: Vital Signs - 24 hr 09/05/22 20:45 09/06/22 05:16 09/06/22 09:37 Temperature 97.3 F L 98 F Pulse Rate 62 66 64 Respiratory Rate 18 20 Blood Pressure 100/56 L 100/61 Pulse Oximetry 96 96 Oxygen Delivery 09/06/22 08:00 09/06/22 11:19 09/06/22 14:00 Temperature 97.3 F L Pulse Rate 67 69 Respiratory Rate 18 Blood Pressure 94/62 L Pulse Oximetry 95 97 Oxygen Delivery Room Air Room Air Intake/Output Intake/Output: Intake & Output 09/03/22 09/04/22 09/05/22 09/06/22 23:59 23:59 23:59 23:59 Intake Total 790 1240 522 Output Total 3632 280 3483 270 [facility] -7275 -280 -2245 252 Meds/Results Medications: Active Medications Generic Name Dose Route Start Last Admin Trade Name Freq PRN Reason Stop Dose Admin Acetaminophen 650 mg 09/02/22 08:32 Acetaminophen 325 Mg Tablet PO Q4H PRN Mild Pain (1-3) or Fever Hydrocodone Bitart/Acetaminophen 1 tab 09/02/22 08:32 09/06/22 09:36 Hydrocodone/Acetaminophen (*Crx) 5-325 Mg Tablet PO 1 tab Q6H PRN Administration Pain Rated 4-6 Atenolol 25 mg 09/04/22 09:00 09/06/22 09:37 Atenolol 25 Mg Tablet PO 25 mg DAILY MALA Administration Fentanyl Citrate 25 mcg 09/01/22 10:46 09/01/22 13:10 Fentanyl Citrate Inj (*Crx) 100 Mcg/2 Ml Vial IV PUSH 25 mcg Q2M PRN Administration Pain Megestrol Acetate 60 mg 09/06/22 13:00 09/06/22 12:36 Megestrol Acetate (*Chemo) 20 Mg Tablet PO 60 mg QID MALA Administration Ondansetron HCl 4 mg 09/01/22 10:46 Onda
[2022-09-06] MEDS: SODIUM CHLORIDE 0.9% IV 1,000 ML 100 ML IV CONT (17:36)
--- NOTE | 2022-09-06 19:16 | PM.PNNEP ---
Progress Note: A&P Assessment and Plan (1) Acute kidney injury superimposed on CKD: Code(s): N17.9 - Acute kidney failure, unspecified; N18.9 - Chronic kidney disease, unspecified Status: Acute Assessment and Plan: Tad has chronic kidney disease. His creatinine has been relatively stable at about 1.3 since 2019. He could have hypertensive nephrosclerosis because he has had hypertension for a long time. he has hyperlipidemia and along with the high blood pressure this puts him at higher risk for having some small-vessel vascular disease in the kidneys. On the other hand the creatinine seemed to worsen in 2019 and that is when he had COVID so he could have had some effect on the kidneys by the COVID. The patient has acute kidney injury as well. renal ultrasound shows a bladder mass and mild right hydronephrosis. repeat renal ultrasound shows moderate right hydronephrosis and ascites. Fractional excretion of urea shows pre renal azotemia. Urine protein to creatinine ratio was 240 UA shows some red cells and some white cells. CK is normal His creatinine has recently risen significantly. He is not taking much in. the urine electrolytes were checked from the nephrostomy tube and also from the [place]. One set of electrolytes is pre renal on the other is not. I suspect the pre renal 1 is from the [place] and the non pre renal 1 is from the percutaneous nephrostomy tube. He probably has ATN in the right kidney because it was obstructed for a long period of time. Not sure why the other kidney is not making urine and less see his just dehydrated. Will give him some IV fluids. We talked again about dialysis. He seems to want to keep trying. Oncology note seen (2) Lung infiltrate: Code(s): R91.8 - Other nonspecific abnormal finding of lung field Status: Acute Assessment and Plan: the patient has infiltrate on his chest x-ray. He was diagnosed with pneumonia . Antibiotics are finished. (3) Hypertension: Qualifiers: Hypertension type: primary hypertension Qualified Code(s): I10 - Essential (primary) hypertension Code(s): I10 - Essential (primary) hypertension Status: Chronic Assessment and Plan: Patient has hypertension. His blood pressure is under good control (4) Acidosis: Code(s): E87.20 - Acidosis, unspecified Status: Acute Assessment and Plan: His bicarbonate level is a little bit on the low side. This may be due to the renal insufficiency with low production of ammonia. CO2 Is about the same at 18. He is on oral bicarbonate. Subjective Date/time seen: 09/06/22 19:16 Interval history: at rate is lying in bed comfortably. Still no appetite. He denies shortness of breath. Exam Narrative: WDWN in NAD skin no rash or subcu nodule head ncat lungs clear cor reg no rub or gallop abd BS+ nontender and soft ext no edema or cyanosis. Objective Data Vital Signs Vital Signs: Vital Signs - 24 hr 09/05/22 20:45 09/06/22 05:16 09/06/22 09:37 Temperature 36.3 C L 36.6 C Pulse Rate 62 66 64 Respiratory Rate 18 20 Blood Pressure 100/56 L 100/61 Pulse Oximetry 96 96 Oxygen Delivery 09/06/22 08:00 09/06/22 11:19 09/06/22 14:00 Temperature 36.3 C L Pulse Rate 67 69 Respiratory Rate 18 Blood Pressure 94/62 L Pulse Oximetry 95 97 Oxygen Delivery Room Air Room Air Intake/Output Intake/Output: Intake & Output 09/03/22 09/04/22 09/05/22 09/06/22 23:59 23:59 23:59 23:59 Intake Total 790 1240 1142 Output Total 5766 280 9144 720 Balance -5555 -280 -4048 422 Meds/Results Medications: Active Medications Generic Name Dose Route Start Last Admin Trade Name Freq PRN Reason Stop Dose Admin Acetaminophen 650 mg 09/02/22 08:32 Acetaminophen 325 Mg Tablet PO Q4H PRN Mild Pain (1-3) or Fever Hydrocodone Bitart/Acetaminophen 1
[2022-09-06 20:00] VITALS: BP 106/58; PULSE 56; RESP 20; TEMP 36.6; O2SAT 97
[2022-09-07] VITALS (8 sets, daily range): BP systolic 86–110; BP diastolic 54–64; PULSE 60–106; RESP 14–20; TEMP 36.6–37; O2SAT 87–96
[2022-09-07] MEDS: SODIUM CHLORIDE 0.9% IV 1,000 ML 100 ML IV CONT ×2 (05:28→15:01)
[2022-09-07 06:13] LABS: Basophils Percent Auto 0.1 % (0.2-1.2); Eosinophils Absolute Auto 0.1 K/mm3 (0-0.3); Eosinophils Percent Auto 0.4 % (0-4.4); Hematocrit 33.6 % (42.0-52.0); Hemoglobin 10.9 g/dL (14.0-18.0); Immature Granulocyte Absolute 0.19 K/mm3 (0.00-0.031); Immature Granulocyte Percent A 1.2 % (0-0.5); Lymphocytes Absolute Auto 1.84 K/mm3 (0.9-3.2); Lymphocytes Percent Auto 11.2 % (18.3-44.2); Mean Corpuscular HGB Conc 32.4 g/dl (32-36); Mean Corpuscular Hemoglobin 28.8 pg (26-34); Mean Corpuscular Volume 88.7 fl (80-100); Mean Platelet Volume 8.8 fl (7.4-10.4); Monocytes Absolute Auto 0.8 K/mm3 (0.1-0.6); Neutrophils Absolute Auto 13.4 K/mm3 (1.3-6.7); Neutrophils Percent Auto 82.1 % (45.5-73.1); Platelet Count Result 264 k/mm3 (150-375); Red Blood Count 3.79 M/mm3 (4.6-6.20); Red Cell Distribution Width 14.2 % (11.5-14.5); White Blood Count 16.4 K/mm3 (4.5-10.0)
[2022-09-07 06:33] LABS: Alanine Aminotransferase 38 U/L (6-50); Albumin Level 2.5 g/dL (3.5-5.1); Alkaline Phosphatase 258 U/L (38-126); Anion Gap 12 mmol/L (8-16); Aspartate Amino Transferase 44 U/L (17-59); Bilirubin,Total 0.4 mg/dL (0.2-1.3); Blood Urea Nitrogen 114 mg/dL (9-20); Calcium 7.8 mg/dL (8.4-10.2); Carbon Dioxide 19 mmol/L (22-30); Chloride 103 mmol/L (98-107); Estimated CRCL calculation 14 ml/min; Estimated Glomerular Filt Rate 13; Glucose 106 mg/dL (65-110); Magnesium 2.3 mg/dL (1.6-2.3); Phosphorus 5.3 mg/dL (2.5-4.5); Potassium 4.5 mmol/L (3.4-5.0); Sodium 134 mmol/L (137-145)
[2022-09-07] MEDS: PSYLLIUM POWDER PACKET 1 PACKET PO (09:05)
[2022-09-07] MEDS: SACCHAROMYCES BOULARDII 250 MG CAPSULE PO ×2 (09:07→18:40)
[2022-09-07] MEDS: MEGESTROL ACETATE (*CHEMO) 20 MG TABLET 60 MG PO (09:07)
[2022-09-07] MEDS: SODIUM BICARBONATE TAB 650 MG TABLET 1300 MG PO ×3 (09:07→18:40)
[2022-09-07] MEDS: atenoloL 25 MG TABLET PO (09:08)
[2022-09-07] MEDS: HYDROcodone/acetaminophen (*CRX) 5-325 MG TABLET 1 TAB PO ×2 (09:10→18:42)
--- NOTE | 2022-09-07 12:01 | PM.PNNEP ---
Progress Note: A&P Assessment and Plan (1) Acute kidney injury superimposed on CKD: Code(s): N17.9 - Acute kidney failure, unspecified; N18.9 - Chronic kidney disease, unspecified Status: Acute Assessment and Plan: Tad has chronic kidney disease. His creatinine has been relatively stable at about 1.3 since 2019. most likely due to hypertension and vascular disease. The patient has acute kidney injury as well. renal ultrasound shows a bladder mass and mild right hydronephrosis. repeat renal ultrasound shows moderate right hydronephrosis and ascites. Fractional excretion of urea shows pre renal azotemia. Urine protein to creatinine ratio was 240 UA shows some red cells and some white cells. CK is normal Based on the urine electrolytes from yesterday dehydration is suspected. He received some IV fluids yesterday. His urine output seems a little better and his BUN and creatinine seem to have stabilized. Will continue the IV fluids. Hopefully he will not need dialysis. (2) Lung infiltrate: Code(s): R91.8 - Other nonspecific abnormal finding of lung field Status: Acute Assessment and Plan: the patient has infiltrate on his chest x-ray. He was diagnosed with pneumonia . Antibiotics are finished. (3) Hypertension: Qualifiers: Hypertension type: primary hypertension Qualified Code(s): I10 - Essential (primary) hypertension Code(s): I10 - Essential (primary) hypertension Status: Chronic Assessment and Plan: Patient has hypertension. His blood pressure is under good control (4) Acidosis: Code(s): E87.20 - Acidosis, unspecified Status: Acute Assessment and Plan: Metabolic acidosis most likely due to renal disease. CO2 is about the same at 19. He is on oral bicarbonate. Subjective Date/time seen: 09/07/22 12:01 Interval history: The patient feels about the same today. No shortness of breath. No chest pain. Exam Narrative: WDWN in NAD skin no rash or subcu nodule head ncat lungs clear bilaterally cor reg no rub or gallop abd BS+ nontender and soft but bit poochy ext no edema or cyanosis. Objective Data Vital Signs Vital Signs: Vital Signs - 24 hr 09/06/22 14:00 09/06/22 20:00 09/06/22 20:00 Temperature 36.3 C L 36.6 C Pulse Rate 69 56 L 56 L Respiratory Rate 18 20 20 Blood Pressure 94/62 L 106/58 L Pulse Oximetry 97 97 97 Oxygen Delivery Room Air 09/07/22 05:15 09/07/22 09:08 09/07/22 08:00 Temperature 36.6 C Pulse Rate 60 92 Respiratory Rate 18 Blood Pressure 106/58 L Pulse Oximetry 95 Oxygen Delivery Room Air Intake/Output Intake/Output: Intake & Output 09/04/22 09/05/22 09/06/22 09/07/22 23:59 23:59 23:59 23:59 Intake Total 1240 1142 1540 Output Total 280 8345 720 285 Balance -280 -2245 422 1255 Meds/Results Medications: Active Medications Generic Name Dose Route Start Last Admin Trade Name Freq PRN Reason Stop Dose Admin Acetaminophen 650 mg 09/02/22 08:32 Acetaminophen 325 Mg Tablet PO Q4H PRN Mild Pain (1-3) or Fever Hydrocodone Bitart/Acetaminophen 1 tab 09/02/22 08:32 09/07/22 09:10 Hydrocodone/Acetaminophen (*Crx) 5-325 Mg Tablet PO 1 tab Q6H PRN Administration Pain Rated 4-6 Atenolol 25 mg 09/04/22 09:00 09/07/22 09:08 Atenolol 25 Mg Tablet PO 25 mg DAILY MALA Administration Fentanyl Citrate 25 mcg 09/01/22 10:46 09/01/22 13:10 Fentanyl Citrate Inj (*Crx) 100 Mcg/2 Ml Vial IV PUSH 25 mcg Q2M PRN Administration Pain Sodium Chloride 1,000 mls @ 100 mls/hr 09/06/22 17:20 09/07/22 05:28 Normal Saline Iv IV CONT 100 mls/hr .Q10H MALA Administration Megestrol Acetate 20 mg 09/07/22 13:00 Megestrol Acetate (*Chemo) 20 Mg Tablet PO QID MALA Megestrol Acetate 40 mg 09/07/22 13:00 Megestrol Acetate (*Chemo) 40 Mg Tablet PO QID
[2022-09-07] MEDS: MEGESTROL ACETATE (*CHEMO) 20 MG TABLET PO ×3 (13:12→20:58)
[2022-09-07] MEDS: MEGESTROL ACETATE (*CHEMO) 40 MG TABLET PO ×3 (13:28→20:58)
[2022-09-07 13:29] LABS: Anti Glomerular Basement Memb <1.0 AI (<1.0)
--- NOTE | 2022-09-07 14:17 | P.PNIM_ITS ---
Progress Note: A&P Assessment and Plan (1) Acute kidney injury superimposed on CKD: Code(s): N17.9 - Acute kidney failure, unspecified; N18.9 - Chronic kidney disease, unspecified Status: Acute Assessment and Plan: * Acute on chronic disease. BUN 114, creatinine 4.30, GFR 14. Baseline BUN 28- 30, creatinine 1.3-1.4, GFR 49, CKD stage 3 * Nephrology consulted and appreciate recommendations. * hold lisinopril and hydrochlorothiazide. Hold nephrotoxic agents. * Renal US - mild right hydronephrosis and 4.1 cm bladder mass Noted on CT * CT also notes multiple renal stones. * Nephrology on the case * Want to continue fluids * dialysis in consideration, however, trying to avoid * Trend BMP. Monitor electrolytes. * Monitor I/O. * Ur Na 42, Cr 81.1 * Fena 1.6, ATN (2) Lung infiltrate: Code(s): R91.8 - Other nonspecific abnormal finding of lung field Status: Acute Assessment and Plan: * CXR with right mid and lower lung infiltrate concerning for pneumonia or atelectasis * Rocephin 1 gram IV Q24 and Zithromax 500 mg IV Q24 hours, DC'd * s/p thoracentesis pleural fluid cytology came back for positive malignancy, high-grade carcinoma compatible with urothelial origin * Oncology on board * CT chest - concerning for hilar lymphadenopathy, bilateral lung nodules max 10 mm, and malignant pleural effusion. (3) Acidosis: Code(s): E87.20 - Acidosis, unspecified Status: Acute Assessment and Plan: * TCO2 18, secondary to CKD * Monitor BMP daily * Nephrology consulting and appreciate recommendations. * Sodium bicarb initiated PO by nephrology (4) Hypertension: Qualifiers: Hypertension type: primary hypertension Qualified Code(s): I10 - Essential (primary) hypertension Code(s): I10 - Essential (primary) hypertension Status: Chronic Assessment and Plan: * Chronic, stable. * Continue amlodipine and atenolol. * Hold lisinopril and HCTZ while hydrating. * BP remains stable at 106/58 (5) Lung nodules: Code(s): R91.8 - Other nonspecific abnormal finding of lung field Status: Acute Assessment and Plan: * CXR with possible hilar mass on admission. * CT chest concerning for bilateral lung nodules and hilar lymphadenopathy with malignant pleural effusion right side, liver masses and peritoneal carcinomatosis * 08/30/22 US guided thoracentesis with -1 liter fluid removed, send fluid for cytology, pH 7.263, gram stain no growth, culture no growth, AFB, total protein 4.1, albumin 2.1, amylase , glucose 48 * Oncology consulted and appreciate recommendations. (6) Liver mass: Code(s): R16.0 - Hepatomegaly, not elsewhere classified Status: Acute Assessment and Plan: * Elevated AST 100>65, ALT 100>65, Alk phos 312>261, Tbili 0.5>0.4. Improving trending down. * current AST/ALT is 44/38 alk-phos 258 * Abd US with cirrhosis, hepatomegaly and ascites noted on CT scan * Abdomen tight * Paracentesis ordered and 3100ml of yellow fluid (7) Generalized weakness: Code(s): R53.1 - Weakness Status: Acute Assessment and Plan: secondary to acute infection and/or malignant disease * PT/OT evaluation. * Continue medical management as above. * Stable * likely related to disease process
--- NOTE | 2022-09-07 14:17 | PM.IMPN ---
Progress Note: A&P Assessment and Plan (1) Acute kidney injury superimposed on CKD: Code(s): N17.9 - Acute kidney failure, unspecified; N18.9 - Chronic kidney disease, unspecified Status: Acute Assessment and Plan: Acute on chronic disease. BUN 114, creatinine 4.30, GFR 14. Baseline BUN 28-30, creatinine 1.3-1.4, GFR 49, CKD stage 3 Nephrology consulted and appreciate recommendations. hold lisinopril and hydrochlorothiazide. Hold nephrotoxic agents. Renal US - mild right hydronephrosis and 4.1 cm bladder mass Noted on CT CT also notes multiple renal stones. Nephrology on the case Want to continue fluids dialysis in consideration, however, trying to avoid Trend BMP. Monitor electrolytes. Monitor I/O. Ur Na 42, Cr 81.1 Fena 1.6, ATN (2) Lung infiltrate: Code(s): R91.8 - Other nonspecific abnormal finding of lung field Status: Acute Assessment and Plan: CXR with right mid and lower lung infiltrate concerning for pneumonia or atelectasis Rocephin 1 gram IV Q24 and Zithromax 500 mg IV Q24 hours, DC'd s/p thoracentesis pleural fluid cytology came back for positive malignancy, high-grade carcinoma compatible with urothelial origin Oncology on board CT chest - concerning for hilar lymphadenopathy, bilateral lung nodules max 10 mm, and malignant pleural effusion. (3) Acidosis: Code(s): E87.20 - Acidosis, unspecified Status: Acute Assessment and Plan: TCO2 18, secondary to CKD Monitor BMP daily Nephrology consulting and appreciate recommendations. Sodium bicarb initiated PO by nephrology (4) Hypertension: Qualifiers: Hypertension type: primary hypertension Qualified Code(s): I10 - Essential (primary) hypertension Code(s): I10 - Essential (primary) hypertension Status: Chronic Assessment and Plan: Chronic, stable. Continue amlodipine and atenolol. Hold lisinopril and HCTZ while hydrating. BP remains stable at 106/58 (5) Lung nodules: Code(s): R91.8 - Other nonspecific abnormal finding of lung field Status: Acute Assessment and Plan: CXR with possible hilar mass on admission. CT chest concerning for bilateral lung nodules and hilar lymphadenopathy with malignant pleural effusion right side, liver masses and peritoneal carcinomatosis 08/30/22 US guided thoracentesis with -1 liter fluid removed, send fluid for cytology, pH 7.263, gram stain no growth, culture no growth, AFB, total protein 4.1, albumin 2.1, amylase , glucose 48 Oncology consulted and appreciate recommendations. (6) Liver mass: Code(s): R16.0 - Hepatomegaly, not elsewhere classified Status: Acute Assessment and Plan: Elevated AST 100>65, ALT 100>65, Alk phos 312>261, Tbili 0.5>0.4. Improving trending down. current AST/ALT is 44/38 alk-phos 258 Abd US with cirrhosis, hepatomegaly and ascites noted on CT scan Abdomen tight Paracentesis ordered and 3100ml of yellow fluid (7) Generalized weakness: Code(s): R53.1 - Weakness Status: Acute Assessment and Plan: secondary to acute infection and/or malignant disease PT/OT evaluation. Continue medical management as above. Stable likely related to disease process (8) Bladder mass: Code(s): N32.89 - Other specified disorders of bladder Status: Acute Assessment and Plan: Noted on US, hyperechoic bladder mass 4.1 cm Consult Urology and appreciate recommendations. 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 LFTs elevated on
[2022-09-07] MEDS: MORPHINE SULFATE (*CRX) 2 MG/ML INJ 1 MG IV PUSH (15:02)
[2022-09-08 04:34] VITALS: BP 101/63; PULSE 84; RESP 20; TEMP 36.6; O2SAT 96
[2022-09-08 05:40] LABS: Basophils Percent Auto 0.2 % (0.2-1.2); Eosinophils Absolute Auto 0.1 K/mm3 (0-0.3); Eosinophils Percent Auto 0.7 % (0-4.4); Hematocrit 31.9 % (42.0-52.0); Hemoglobin 10.5 g/dL (14.0-18.0); Immature Granulocyte Absolute 0.17 K/mm3 (0.00-0.031); Immature Granulocyte Percent A 1.1 % (0-0.5); Lymphocytes Percent Auto 11.3 % (18.3-44.2); Mean Corpuscular HGB Conc 32.9 g/dl (32-36); Mean Corpuscular Volume 88.1 fl (80-100); Mean Platelet Volume 8.9 fl (7.4-10.4); Monocytes Absolute Auto 0.9 K/mm3 (0.1-0.6); Monocytes Percent Auto 5.7 % (2.6-8.5); Neutrophils Absolute Auto 12.1 K/mm3 (1.3-6.7); Platelet Count Result 228 k/mm3 (150-375); Red Blood Count 3.62 M/mm3 (4.6-6.20); Red Cell Distribution Width 14.2 % (11.5-14.5)
[2022-09-08 06:17] LABS: Alanine Aminotransferase 36 U/L (6-50); Albumin Level 2.4 g/dL (3.5-5.1); Alkaline Phosphatase 249 U/L (38-126); Anion Gap 15 mmol/L (8-16); Aspartate Amino Transferase 42 U/L (17-59); Bilirubin,Total 0.3 mg/dL (0.2-1.3); Blood Urea Nitrogen 111 mg/dL (9-20); Calcium 7.7 mg/dL (8.4-10.2); Carbon Dioxide 17 mmol/L (22-30); Chloride 103 mmol/L (98-107); Estimated CRCL calculation 16 ml/min; Estimated Glomerular Filt Rate 16; Glucose 105 mg/dL (65-110); Magnesium 2.2 mg/dL (1.6-2.3); Phosphorus 5.1 mg/dL (2.5-4.5); Potassium 4.2 mmol/L (3.4-5.0); Sodium 135 mmol/L (137-145)
[2022-09-08] MEDS: HYDROcodone/acetaminophen (*CRX) 5-325 MG TABLET 1 TAB PO ×4 (06:49→21:32)
[2022-09-08] MEDS: SODIUM CHLORIDE 0.9% IV 1,000 ML 100 ML IV CONT (06:50)
--- NOTE | 2022-09-08 06:53 | WPDUROPN2 ---
Progress Note: A&P Assessment and Plan (1) Malignant neoplasm metastatic from bladder: Code(s): C67.9 - Malignant neoplasm of bladder, unspecified Status: Acute Assessment and Plan: Right nephrostomy tube functioning well and creat. improved this morning. Appreciate efforts to optimize performance status so he may tolerate immunotherapy Plan Right nephrostomy tube functioning well and serum creat. improved this morning. Working towards optimization of performance status so he may be able to tolerate immunotherapy. Subjective Subjective Date/Time Seen: 09/08/22 06:53 SOB with exertion Review of Systems Cardiovascular: Cardiovascular: Denies chest pain, Denies lightheadedness, Denies palpitations and Denies dyspnea Respiratory: Respiratory: Reports dyspnea Gastrointestinal: Gastrointestinal: Denies diarrhea, Denies nausea and Denies vomiting Genitourinary: Genitourinary: Denies hematuria and Denies dysuria Endocrine: Endocrine: Denies palpitations Exam Const: General: no acute distress Resp: Effort & Inspection: normal respiratory effort GI: Inspection: non-distended GI Palp: No abdominal tenderness and No Guarding due to palpation present (GI) Auscultation: normal bowel sounds Urinary Catheter: Urinary Catheter: patent and draining and urine clear Objective Data Vital Signs Vital Signs: Vital Signs - 24 hr 09/07/22 09:08 09/07/22 08:00 09/07/22 14:00 Temperature 98.2 F Pulse Rate 92 106 H Respiratory Rate 18 Blood Pressure 110/54 L Pulse Oximetry 92 Oxygen Delivery Room Air 09/07/22 16:15 09/07/22 16:21 09/07/22 16:24 Temperature Pulse Rate 87 65 87 Respiratory Rate 15 14 16 Blood Pressure 86/62 L 94/64 L 86/62 L Pulse Oximetry 96 94 87 L Oxygen Delivery 09/07/22 20:54 09/07/22 20:00 09/08/22 04:34 Temperature 98.6 F 98 F Pulse Rate 77 77 84 Respiratory Rate 20 20 20 Blood Pressure 96/64 L 101/63 Pulse Oximetry 95 95 96 Oxygen Delivery Room Air Intake/Output Intake/Output: Intake & Output 09/05/22 09/06/22 09/07/22 09/08/22 23:59 23:59 23:59 23:59 Intake Total 1240 1142 3762 1300 Output Total 9728 408 1105 275 Balance -2245 422 1027 1025 Meds/Results Medications: Active Medications Generic Name Dose Route Start Last Admin Trade Name Karl PRN Reason Stop Dose Admin Acetaminophen 650 mg 09/02/22 08:32 Acetaminophen 325 Mg Tablet PO Q4H PRN Mild Pain (1-3) or Fever Hydrocodone Bitart/Acetaminophen 1 tab 09/02/22 08:32 09/08/22 06:49 Hydrocodone/Acetaminophen (*Crx) 5-325 Mg Tablet PO 1 tab Q6H PRN Administration Pain Rated 4-6 Atenolol 25 mg 09/04/22 09:00 09/07/22 09:08 Atenolol 25 Mg Tablet PO 25 mg DAILY MALA Administration Sodium Chloride 1,000 mls @ 100 mls/hr 09/06/22 17:20 09/08/22 06:50 Normal Saline Iv IV CONT 100 mls/hr .Q10H MALA Administration Megestrol Acetate 20 mg 09/07/22 13:00 09/07/22 20:58 Megestrol Acetate (*Chemo) 20 Mg Tablet PO 20 mg QID MALA Administration Megestrol Acetate 40 mg 09/07/22 13:00 09/07/22 20:58 Megestrol Acetate (*Chemo) 40 Mg Tablet PO 40 mg QID MALA Administration Ondansetron HCl 4 mg 09/01/22 10:46 Ondansetron Inj 4 Mg/2 Ml Vial IV PUSH ONCE PRN Nausea Psyllium Hydrophilic Mucilloid 1 packet 09/02/22 10:29 09/07/22 09:05 Psyllium Powder Packet PO 1 packet QAM MALA Administration Saccharomyces Boulardii 250 mg 08/31/22 17:00 09/07/22 18:40 Saccharomyces Boulardii 250 Mg Capsule PO 250 mg BID MALA Administration Sodium Bicarbonate 1,300 mg 09/04/22 12:15 09/07/22 18:40 Sodium Bicarbonate Tab 650 Mg Tablet PO 1,300 mg TIDWM MALA Administration Trazodone HCl 50 mg 09/03/22 12:56 09/03/22 20:35 Trazodone Hcl 50 Mg Tablet PO 50 mg HS PRN Administration Insomnia Radiology Results: ITS Impressions Chest CT 08/30/22 08:47 IMPRES
[2022-09-08 09:29] VITALS: PULSE 70
[2022-09-08] MEDS: SODIUM BICARBONATE TAB 650 MG TABLET 1300 MG PO ×2 (09:29→12:30)
[2022-09-08] MEDS: atenoloL 25 MG TABLET PO (09:29)
[2022-09-08] MEDS: MEGESTROL ACETATE (*CHEMO) 20 MG TABLET PO ×4 (09:30→21:28)
[2022-09-08] MEDS: SACCHAROMYCES BOULARDII 250 MG CAPSULE PO ×2 (09:30→16:42)
[2022-09-08] MEDS: MEGESTROL ACETATE (*CHEMO) 40 MG TABLET PO ×4 (09:30→21:28)
--- NOTE | 2022-09-08 10:00 | P.PNIM_ITS ---
Progress Note: A&P Assessment and Plan (1) Acute kidney injury superimposed on CKD: Code(s): N17.9 - Acute kidney failure, unspecified; N18.9 - Chronic kidney disease, unspecified Status: Acute Assessment and Plan: * Acute on chronic disease. BUN 111, creatinine 3.70, GFR 14. Baseline BUN 28- 30, creatinine 1.3-1.4, GFR 49, CKD stage 3 * Nephrology consulted and appreciate recommendations. * hold lisinopril and hydrochlorothiazide. Hold nephrotoxic agents. * Renal US - mild right hydronephrosis and 4.1 cm bladder mass Noted on CT * CT also notes multiple renal stones. * Nephrology on the case * Continue fluids at this time * dialysis in consideration, however, trying to avoid * Trend BMP. Monitor electrolytes. * Monitor I/O. * Ur Na 42, Cr 81.1 * Fena 1.6, ATN (2) Lung infiltrate: Code(s): R91.8 - Other nonspecific abnormal finding of lung field Status: Acute Assessment and Plan: * CXR with right mid and lower lung infiltrate concerning for pneumonia or atelectasis * Rocephin 1 gram IV Q24 and Zithromax 500 mg IV Q24 hours, DC'd * s/p thoracentesis pleural fluid cytology came back for positive malignancy, high-grade carcinoma compatible with urothelial origin * Oncology on board * CT chest - concerning for hilar lymphadenopathy, bilateral lung nodules max 10 mm, and malignant pleural effusion. (3) Acidosis: Code(s): E87.20 - Acidosis, unspecified Status: Acute Assessment and Plan: * TCO2 18, secondary to CKD * Monitor BMP daily * Nephrology consulting and appreciate recommendations. * Sodium bicarb initiated PO by nephrology (4) Hypertension: Qualifiers: Hypertension type: primary hypertension Qualified Code(s): I10 - Essential (primary) hypertension Code(s): I10 - Essential (primary) hypertension Status: Chronic Assessment and Plan: * Chronic, stable. * Continue amlodipine and atenolol. * Hold lisinopril and HCTZ while hydrating. * BP remains stable at 101/63 (5) Lung nodules: Code(s): R91.8 - Other nonspecific abnormal finding of lung field Status: Acute Assessment and Plan: * CXR with possible hilar mass on admission. * CT chest concerning for bilateral lung nodules and hilar lymphadenopathy with malignant pleural effusion right side, liver masses and peritoneal carcinomatosis * 08/30/22 US guided thoracentesis with -1 liter fluid removed, send fluid for cytology, pH 7.263, gram stain no growth, culture no growth, AFB, total protein 4.1, albumin 2.1, amylase , glucose 48 * Oncology consulted and appreciate recommendations. * 09/08/22 repeat thoracentesis with 1000ml off (6) Liver mass: Code(s): R16.0 - Hepatomegaly, not elsewhere classified Status: Acute Assessment and Plan: * Elevated AST 100>65, ALT 100>65, Alk phos 312>261, Tbili 0.5>0.4. Improving trending down. * current AST/ALT is 42/36 alk-phos 258 * Abd US with cirrhosis, hepatomegaly and ascites noted on CT scan * Abdomen tight * Paracentesis ordered and 3100ml of yellow fluid * Will probably need another paracentesis soon (7) Generalized weakness: Code(s): R53.1 - Weakness Status: Acute Assessment and Plan: secondary to acute infection and/or malignant disease * PT/OT evaluation. * Continue medical management
--- NOTE | 2022-09-08 10:00 | PM.IMPN ---
Progress Note: A&P Assessment and Plan (1) Acute kidney injury superimposed on CKD: Code(s): N17.9 - Acute kidney failure, unspecified; N18.9 - Chronic kidney disease, unspecified Status: Acute Assessment and Plan: Acute on chronic disease. BUN 111, creatinine 3.70, GFR 14. Baseline BUN 28-30, creatinine 1.3-1.4, GFR 49, CKD stage 3 Nephrology consulted and appreciate recommendations. hold lisinopril and hydrochlorothiazide. Hold nephrotoxic agents. Renal US - mild right hydronephrosis and 4.1 cm bladder mass Noted on CT CT also notes multiple renal stones. Nephrology on the case Continue fluids at this time dialysis in consideration, however, trying to avoid Trend BMP. Monitor electrolytes. Monitor I/O. Ur Na 42, Cr 81.1 Fena 1.6, ATN (2) Lung infiltrate: Code(s): R91.8 - Other nonspecific abnormal finding of lung field Status: Acute Assessment and Plan: CXR with right mid and lower lung infiltrate concerning for pneumonia or atelectasis Rocephin 1 gram IV Q24 and Zithromax 500 mg IV Q24 hours, DC'd s/p thoracentesis pleural fluid cytology came back for positive malignancy, high-grade carcinoma compatible with urothelial origin Oncology on board CT chest - concerning for hilar lymphadenopathy, bilateral lung nodules max 10 mm, and malignant pleural effusion. (3) Acidosis: Code(s): E87.20 - Acidosis, unspecified Status: Acute Assessment and Plan: TCO2 18, secondary to CKD Monitor BMP daily Nephrology consulting and appreciate recommendations. Sodium bicarb initiated PO by nephrology (4) Hypertension: Qualifiers: Hypertension type: primary hypertension Qualified Code(s): I10 - Essential (primary) hypertension Code(s): I10 - Essential (primary) hypertension Status: Chronic Assessment and Plan: Chronic, stable. Continue amlodipine and atenolol. Hold lisinopril and HCTZ while hydrating. BP remains stable at 101/63 (5) Lung nodules: Code(s): R91.8 - Other nonspecific abnormal finding of lung field Status: Acute Assessment and Plan: CXR with possible hilar mass on admission. CT chest concerning for bilateral lung nodules and hilar lymphadenopathy with malignant pleural effusion right side, liver masses and peritoneal carcinomatosis 08/30/22 US guided thoracentesis with -1 liter fluid removed, send fluid for cytology, pH 7.263, gram stain no growth, culture no growth, AFB, total protein 4.1, albumin 2.1, amylase , glucose 48 Oncology consulted and appreciate recommendations. 09/08/22 repeat thoracentesis with 1000ml off (6) Liver mass: Code(s): R16.0 - Hepatomegaly, not elsewhere classified Status: Acute Assessment and Plan: Elevated AST 100>65, ALT 100>65, Alk phos 312>261, Tbili 0.5>0.4. Improving trending down. current AST/ALT is 42/36 alk-phos 258 Abd US with cirrhosis, hepatomegaly and ascites noted on CT scan Abdomen tight Paracentesis ordered and 3100ml of yellow fluid Will probably need another paracentesis soon (7) Generalized weakness: Code(s): R53.1 - Weakness Status: Acute Assessment and Plan: secondary to acute infection and/or malignant disease PT/OT evaluation. Continue medical management as above. Stable likely related to disease process (8) Bladder mass: Code(s): N32.89 - Other specified disorders of bladder Status: Acute Assessment and Plan: Noted on US, hyperechoic bladder mass 4.1 cm Consult Urology and appreciate recommendations. 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
[2022-09-08 14:31] VITALS: BP 109/67; PULSE 97; RESP 24; TEMP 36.3; O2SAT 93
--- NOTE | 2022-09-08 16:35 | PM.PNNEP ---
Progress Note: A&P Assessment and Plan (1) Acute kidney injury superimposed on CKD: Code(s): N17.9 - Acute kidney failure, unspecified; N18.9 - Chronic kidney disease, unspecified Status: Acute Assessment and Plan: Tad has chronic kidney disease. His creatinine has been relatively stable at about 1.3 since 2019. most likely due to hypertension and vascular disease. The patient has acute kidney injury as well. renal ultrasound shows a bladder mass and mild right hydronephrosis. repeat renal ultrasound shows moderate right hydronephrosis and ascites. Fractional excretion of urea shows pre renal azotemia. Urine protein to creatinine ratio was 240 UA shows some red cells and some white cells. CK is normal the patient is getting IV fluids. The creatinine is better. (2) Lung infiltrate: Code(s): R91.8 - Other nonspecific abnormal finding of lung field Status: Acute Assessment and Plan: the patient has infiltrate on his chest x-ray. He was diagnosed with pneumonia . Antibiotics are finished. (3) Hypertension: Qualifiers: Hypertension type: primary hypertension Qualified Code(s): I10 - Essential (primary) hypertension Code(s): I10 - Essential (primary) hypertension Status: Chronic Assessment and Plan: Patient has hypertension. His blood pressure is under good control (4) Acidosis: Code(s): E87.20 - Acidosis, unspecified Status: Acute Assessment and Plan: Metabolic acidosis most likely due to renal disease. CO2 is still low. Will give some bicarb in the fluids to keep it from going down due to dilution Subjective Date/time seen: 09/08/22 16:35 Interval history: Multiple family members in the room. The patient feels about the same today. Just weak. No appetite. Exam Narrative: WDWN in NAD skin no rash or subcu nodule head ncat lungs clear to auscultation cor reg no rub or gallop abd BS+ nontender and soft but bit poochy ext no edema or cyanosis. Objective Data Vital Signs Vital Signs: Vital Signs - 24 hr 09/07/22 20:54 09/07/22 20:00 09/08/22 04:34 Temperature 37.0 C 36.6 C Pulse Rate 77 77 84 Respiratory Rate 20 20 20 Blood Pressure 96/64 L 101/63 Pulse Oximetry 95 95 96 Oxygen Delivery Room Air 09/08/22 09:29 09/08/22 14:31 Temperature 36.3 C L Pulse Rate 70 97 Respiratory Rate 24 H Blood Pressure 109/67 Pulse Oximetry 93 Oxygen Delivery Intake/Output Intake/Output: Intake & Output 09/05/22 09/06/22 09/07/22 09/08/22 23:59 23:59 23:59 23:59 Intake Total 1240 1142 3762 1300 Output Total 3485 720 2735 445 Balance -2245 422 1027 855 Meds/Results Medications: Active Medications Generic Name Dose Route Start Last Admin Trade Name Freq PRN Reason Stop Dose Admin Acetaminophen 650 mg 09/02/22 08:32 Acetaminophen 325 Mg Tablet PO Q4H PRN Mild Pain (1-3) or Fever Hydrocodone Bitart/Acetaminophen 1 tab 09/08/22 15:51 Hydrocodone/Acetaminophen (*Crx) 5-325 Mg Tablet PO Q4H PRN Pain Rated 4-6 Atenolol 25 mg 09/04/22 09:00 09/08/22 09:29 Atenolol 25 Mg Tablet PO 25 mg DAILY MALA Administration Sodium Chloride 1,000 mls @ 100 mls/hr 09/06/22 17:20 09/08/22 06:50 Normal Saline Iv IV CONT 100 mls/hr .Q10H MALA Administration Megestrol Acetate 20 mg 09/07/22 13:00 09/08/22 12:30 Megestrol Acetate (*Chemo) 20 Mg Tablet PO 20 mg QID MALA Administration Megestrol Acetate 40 mg 09/07/22 13:00 09/08/22 12:30 Megestrol Acetate (*Chemo) 40 Mg Tablet PO 40 mg QID MALA Administration Ondansetron HCl 4 mg 09/01/22 10:46 Ondansetron Inj 4 Mg/2 Ml Vial IV PUSH ONCE PRN Nausea Psyllium Hydrophilic Mucilloid 1 packet 09/02/22 10:29 09/08/22 12:30 Psyllium Powder Packet PO Not Given QAM MALA Saccharomyces Boulardii 250 mg 08/31/22 17:00
[2022-09-08] MEDS: SODIUM BICARBONATE 8.4% 150 MEQ in DEXTROSE 5% 1,000 ML 950 ML 50 MEQ IV CONT (17:15)
[2022-09-08 19:36] VITALS: BP 117/58; PULSE 86; RESP 20; TEMP 36.9; O2SAT 94
[2022-09-09 05:13] VITALS: BP 113/67; PULSE 95; RESP 22; TEMP 36.6; O2SAT 95
[2022-09-09 06:05] LABS: Basophils Percent Auto 0.2 % (0.2-1.2); Eosinophils Absolute Auto 0.1 K/mm3 (0-0.3); Eosinophils Percent Auto 0.5 % (0-4.4); Hematocrit 36.1 % (42.0-52.0); Hemoglobin 11.7 g/dL (14.0-18.0); Immature Granulocyte Absolute 0.24 K/mm3 (0.00-0.031); Immature Granulocyte Percent A 1.6 % (0-0.5); Lymphocytes Absolute Auto 1.86 K/mm3 (0.9-3.2); Lymphocytes Percent Auto 12.4 % (18.3-44.2); Mean Corpuscular HGB Conc 32.4 g/dl (32-36); Mean Corpuscular Hemoglobin 29.2 pg (26-34); Mean Platelet Volume 8.9 fl (7.4-10.4); Monocytes Absolute Auto 0.7 K/mm3 (0.1-0.6); Monocytes Percent Auto 4.9 % (2.6-8.5); Neutrophils Percent Auto 80.4 % (45.5-73.1); Platelet Count Result 264 k/mm3 (150-375); Red Blood Count 4.01 M/mm3 (4.6-6.20); Red Cell Distribution Width 14.5 % (11.5-14.5)
[2022-09-09 06:16] LABS: Alanine Aminotransferase 35 U/L (6-50); Albumin Level 2.5 g/dL (3.5-5.1); Alkaline Phosphatase 270 U/L (38-126); Anion Gap 13 mmol/L (8-16); Aspartate Amino Transferase 45 U/L (17-59); Bilirubin,Total 0.4 mg/dL (0.2-1.3); Blood Urea Nitrogen 106 mg/dL (9-20); Calcium 7.8 mg/dL (8.4-10.2); Carbon Dioxide 22 mmol/L (22-30); Chloride 101 mmol/L (98-107); Estimated CRCL calculation 18 ml/min; Estimated Glomerular Filt Rate 18; Glucose 109 mg/dL (65-110); Magnesium 2.2 mg/dL (1.6-2.3); Phosphorus 4.9 mg/dL (2.5-4.5); Potassium 4.3 mmol/L (3.4-5.0); Sodium 136 mmol/L (137-145)
[2022-09-09 08:22] VITALS: BP 104/69; PULSE 86; RESP 20; TEMP 36.4; O2SAT 95
[2022-09-09 08:24] VITALS: PULSE 84
[2022-09-09] MEDS: atenoloL 25 MG TABLET PO (08:24)
[2022-09-09] MEDS: HYDROcodone/acetaminophen (*CRX) 5-325 MG TABLET 1 TAB PO ×2 (08:25→12:52)
[2022-09-09] MEDS: MEGESTROL ACETATE (*CHEMO) 20 MG TABLET PO ×4 (08:25→20:58)
[2022-09-09] MEDS: PSYLLIUM POWDER PACKET 1 PACKET PO (08:25)
[2022-09-09] MEDS: SACCHAROMYCES BOULARDII 250 MG CAPSULE PO ×2 (08:25→17:46)
[2022-09-09] MEDS: MEGESTROL ACETATE (*CHEMO) 40 MG TABLET PO ×4 (08:25→20:58)
--- NOTE | 2022-09-09 13:00 | P.PNIM_ITS ---
Progress Note: A&P Assessment and Plan (1) Acute kidney injury superimposed on CKD: Code(s): N17.9 - Acute kidney failure, unspecified; N18.9 - Chronic kidney disease, unspecified Status: Acute Assessment and Plan: * Acute on chronic disease. BUN 106, creatinine 3.40, GFR 18. Baseline BUN 28- 30, creatinine 1.3-1.4, GFR 49, CKD stage 3 * Nephrology consulted and appreciate recommendations. * hold lisinopril and hydrochlorothiazide. Hold nephrotoxic agents. * Renal US - mild right hydronephrosis and 4.1 cm bladder mass Noted on CT * CT also notes multiple renal stones. * Nephrology on the case * Continue fluids at this time * dialysis in consideration, however, trying to avoid * Trend BMP. Monitor electrolytes. * Monitor I/O. * Ur Na 42, Cr 81.1 * Getting better at this time (2) Lung infiltrate: Code(s): R91.8 - Other nonspecific abnormal finding of lung field Status: Acute Assessment and Plan: * CXR with right mid and lower lung infiltrate concerning for pneumonia or atelectasis * Rocephin 1 gram IV Q24 and Zithromax 500 mg IV Q24 hours, DC'd * s/p thoracentesis pleural fluid cytology came back for positive malignancy, high-grade carcinoma compatible with urothelial origin * Oncology on board * CT chest - concerning for hilar lymphadenopathy, bilateral lung nodules max 10 mm, and malignant pleural effusion. (3) Acidosis: Code(s): E87.20 - Acidosis, unspecified Status: Acute Assessment and Plan: * TCO2 18, secondary to CKD * Monitor BMP daily * Nephrology consulting and appreciate recommendations. * Sodium bicarb initiated PO by nephrology (4) Hypertension: Qualifiers: Hypertension type: primary hypertension Qualified Code(s): I10 - E ssential (primary) hypertension Code(s): I10 - Essential (primary) hypertension Status: Chronic Assessment and Plan: * Chronic, stable. * Continue amlodipine and atenolol. * Hold lisinopril and HCTZ while hydrating. * BP remains stable at 104/69 (5) Lung nodules: Code(s): R91.8 - Other nonspecific abnormal finding of lung field Status: Acute Assessment and Plan: * CXR with possible hilar mass on admission. * CT chest concerning for bilateral lung nodules and hilar lymphadenopathy with malignant pleural effusion right side, liver masses and peritoneal carcinomatosis * 08/30/22 US guided thoracentesis with -1 liter fluid removed, send fluid for cytology, pH 7.263, gram stain no growth, culture no growth, AFB, total protein 4.1, albumin 2.1, amylase , glucose 48 * Oncology consulted and appreciate recommendations. * 09/08/22 repeat thoracentesis with 1000ml off (6) Liver mass: Code(s): R16.0 - Hepatomegaly, not elsewhere classified Status: Acute Assessment and Plan: * Elevated AST 100>65, ALT 100>65, Alk phos 312>261, Tbili 0.5>0.4. Improving trending down. * current AST/ALT is 45/35 alk-phos 270 * Abd US with cirrhosis, hepatomegaly and ascites noted on CT scan * Paracentesis ordered and 3100ml of yellow fluid 09/05/22 * Will probably need another paracentesis soon (7) Generalized weakness: Code(s): R53.1 - Weakness Status: Acute Assessment and Plan: secondary to acute infection and/or malignant disease * PT/OT evaluation. * Continue medical management
--- NOTE | 2022-09-09 13:00 | PM.IMPN ---
Progress Note: A&P Assessment and Plan (1) Acute kidney injury superimposed on CKD: Code(s): N17.9 - Acute kidney failure, unspecified; N18.9 - Chronic kidney disease, unspecified Status: Acute Assessment and Plan: Acute on chronic disease. BUN 106, creatinine 3.40, GFR 18. Baseline BUN 28-30, creatinine 1.3-1.4, GFR 49, CKD stage 3 Nephrology consulted and appreciate recommendations. hold lisinopril and hydrochlorothiazide. Hold nephrotoxic agents. Renal US - mild right hydronephrosis and 4.1 cm bladder mass Noted on CT CT also notes multiple renal stones. Nephrology on the case Continue fluids at this time dialysis in consideration, however, trying to avoid Trend BMP. Monitor electrolytes. Monitor I/O. Ur Na 42, Cr 81.1 Getting better at this time (2) Lung infiltrate: Code(s): R91.8 - Other nonspecific abnormal finding of lung field Status: Acute Assessment and Plan: CXR with right mid and lower lung infiltrate concerning for pneumonia or atelectasis Rocephin 1 gram IV Q24 and Zithromax 500 mg IV Q24 hours, DC'd s/p thoracentesis pleural fluid cytology came back for positive malignancy, high-grade carcinoma compatible with urothelial origin Oncology on board CT chest - concerning for hilar lymphadenopathy, bilateral lung nodules max 10 mm, and malignant pleural effusion. (3) Acidosis: Code(s): E87.20 - Acidosis, unspecified Status: Acute Assessment and Plan: TCO2 18, secondary to CKD Monitor BMP daily Nephrology consulting and appreciate recommendations. Sodium bicarb initiated PO by nephrology (4) Hypertension: Qualifiers: Hypertension type: primary hypertension Qualified Code(s): I10 - Essential (primary) hypertension Code(s): I10 - Essential (primary) hypertension Status: Chronic Assessment and Plan: Chronic, stable. Continue amlodipine and atenolol. Hold lisinopril and HCTZ while hydrating. BP remains stable at 104/69 (5) Lung nodules: Code(s): R91.8 - Other nonspecific abnormal finding of lung field Status: Acute Assessment and Plan: CXR with possible hilar mass on admission. CT chest concerning for bilateral lung nodules and hilar lymphadenopathy with malignant pleural effusion right side, liver masses and peritoneal carcinomatosis 08/30/22 US guided thoracentesis with -1 liter fluid removed, send fluid for cytology, pH 7.263, gram stain no growth, culture no growth, AFB, total protein 4.1, albumin 2.1, amylase , glucose 48 Oncology consulted and appreciate recommendations. 09/08/22 repeat thoracentesis with 1000ml off (6) Liver mass: Code(s): R16.0 - Hepatomegaly, not elsewhere classified Status: Acute Assessment and Plan: Elevated AST 100>65, ALT 100>65, Alk phos 312>261, Tbili 0.5>0.4. Improving trending down. current AST/ALT is 45/35 alk-phos 270 Abd US with cirrhosis, hepatomegaly and ascites noted on CT scan Paracentesis ordered and 3100ml of yellow fluid 09/05/22 Will probably need another paracentesis soon (7) Generalized weakness: Code(s): R53.1 - Weakness Status: Acute Assessment and Plan: secondary to acute infection and/or malignant disease PT/OT evaluation. Continue medical management as above. Stable likely related to disease process (8) Bladder mass: Code(s): N32.89 - Other specified disorders of bladder Status: Acute Assessment and Plan: Noted on US, hyperechoic bladder mass 4.1 cm Consult Urology and appreciate recommendations. 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
[2022-09-09] MEDS: MORPHINE SULFATE (*CRX) 2 MG/ML INJ 1 MG IV PUSH ×3 (13:58→23:53)
[2022-09-09 14:00] VITALS: BP 110/70; PULSE 81; RESP 18; TEMP 36.3; O2SAT 97
[2022-09-09] MEDS: SODIUM BICARBONATE 8.4% 150 MEQ in DEXTROSE 5% 1,000 ML 950 ML 50 MEQ IV CONT (14:02)
--- NOTE | 2022-09-09 15:31 | PM.PNNEP ---
Progress Note: A&P Assessment and Plan (1) Acute kidney injury superimposed on CKD: Code(s): N17.9 - Acute kidney failure, unspecified; N18.9 - Chronic kidney disease, unspecified Status: Acute Assessment and Plan: Tad has chronic kidney disease. His creatinine has been relatively stable at about 1.3 since 2019. most likely due to hypertension and vascular disease. The patient has acute kidney injury as well. renal ultrasound shows a bladder mass and mild right hydronephrosis. repeat renal ultrasound shows moderate right hydronephrosis and ascites. Fractional excretion of urea shows pre renal azotemia. Urine protein to creatinine ratio was 240 UA shows some red cells and some white cells. CK is normal some of this due to dehydration. the patient is getting IV fluids. The creatinine is slowly better. above discussions about hospice are noted. (2) Lung infiltrate: Code(s): R91.8 - Other nonspecific abnormal finding of lung field Status: Acute Assessment and Plan: the patient has infiltrate on his chest x-ray. He was diagnosed with pneumonia . Antibiotics are finished. (3) Hypertension: Qualifiers: Hypertension type: primary hypertension Qualified Code(s): I10 - Essential (primary) hypertension Code(s): I10 - Essential (primary) hypertension Status: Chronic Assessment and Plan: Patient has hypertension. His blood pressure is doing well (4) Acidosis: Code(s): E87.20 - Acidosis, unspecified Status: Acute Assessment and Plan: Metabolic acidosis most likely due to renal disease. CO2 is better Subjective Date/time seen: 09/09/22 15:31 Interval history: pt feels the same. Just weak. I just lookd at food and think 'blah' no sob Exam Narrative: WDWN in NAD skin no rash or subcu nodule head ncat lungs clear bilaterally cor reg no rub or gallop abd BS+ nontender and soft but bit poochy ext no edema Objective Data Vital Signs Vital Signs: Vital Signs - 24 hr 09/08/22 19:36 09/08/22 21:30 09/09/22 05:13 Temperature 36.9 C 36.6 C Pulse Rate 86 95 Respiratory Rate 20 22 H Blood Pressure 117/58 L 113/67 Pulse Oximetry 94 95 Oxygen Delivery Room Air 09/09/22 08:22 09/09/22 08:24 09/09/22 08:30 Temperature 36.4 C Pulse Rate 86 84 Respiratory Rate 20 Blood Pressure 104/69 Pulse Oximetry 95 Oxygen Delivery Room Air 09/09/22 14:00 Temperature 36.3 C L Pulse Rate 81 Respiratory Rate 18 Blood Pressure 110/70 Pulse Oximetry 97 Oxygen Delivery Intake/Output Intake/Output: Intake & Output 09/06/22 09/07/22 09/08/22 09/09/22 23:59 23:59 23:59 23:59 Intake Total 1142 3762 1300 1250 Output Total 561 3415 745 610 Balance 422 1027 555 640 Meds/Results Medications: Active Medications Generic Name Dose Route Start Last Admin Trade Name Freq PRN Reason Stop Dose Admin Acetaminophen 650 mg 09/02/22 08:32 Acetaminophen 325 Mg Tablet PO Q4H PRN Mild Pain (1-3) or Fever Hydrocodone Bitart/Acetaminophen 1 tab 09/08/22 15:51 09/09/22 12:52 Hydrocodone/Acetaminophen (*Crx) 5-325 Mg Tablet PO 1 tab Q4H PRN Administration Pain Rated 4-6 Atenolol 25 mg 09/04/22 09:00 09/09/22 08:24 Atenolol 25 Mg Tablet PO 25 mg DAILY MALA Administration Sodium Bicarbonate 150 meq/ 1,100 mls @ 50 mls/hr 09/08/22 17:00 09/09/22 14:02 Dextrose IV CONT 50 mls/hr .Q22H MALA Administration Megestrol Acetate 20 mg 09/07/22 13:00 09/09/22 12:51 Megestrol Acetate (*Chemo) 20 Mg Tablet PO 20 mg QID MALA Administration Megestrol Acetate 40 mg 09/07/22 13:00 09/09/22 12:51 Megestrol Acetate (*Chemo) 40 Mg Tablet PO 40 mg QID MALA Administration Morphine Sulfate 1 mg 09/09/22 13:54 Morphine Sulfate (*Crx) 2 Mg/Ml Inj IV PUSH Q3H PRN Pain Rated 7-10 Ondansetron HCl
[2022-09-09 19:43] VITALS: BP 90/58; PULSE 84; RESP 20; TEMP 36.4; O2SAT 94
[2022-09-10] VITALS (11 sets, daily range): BP systolic 86–105; BP diastolic 42–71; PULSE 61–101; RESP 16–28; TEMP 35.8–36.4; O2SAT 93–97
[2022-09-10] MEDS: MORPHINE SULFATE (*CRX) 2 MG/ML INJ 1 MG IV PUSH (01:12)
--- NOTE | 2022-09-10 01:36 | PC.NURSE ---
Daylight Savings Time For Daylight Savings Time Ending in the Fall - Clocks are moved back. For Daylight Savings Time Beginning in the Spring - Clocks are moved ahead. For [facility], the time of change occurs at 0200 hrs. Time is taken from the timber watchman. This entry on the patient's chart recognizes the change in time reflected during documentation. Example: 2 entries for vital signs may be charted for 0200 hrs.
[2022-09-10 06:50] LABS: Basophils Percent Auto 0.2 % (0.2-1.2); Eosinophils Absolute Auto 0.1 K/mm3 (0-0.3); Eosinophils Percent Auto 0.6 % (0-4.4); Hematocrit 35.5 % (42.0-52.0); Hemoglobin 11.4 g/dL (14.0-18.0); Immature Granulocyte Absolute 0.23 K/mm3 (0.00-0.031); Immature Granulocyte Percent A 1.4 % (0-0.5); Lymphocytes Absolute Auto 2.12 K/mm3 (0.9-3.2); Lymphocytes Percent Auto 12.5 % (18.3-44.2); Mean Corpuscular HGB Conc 32.1 g/dl (32-36); Mean Corpuscular Hemoglobin 28.3 pg (26-34); Mean Corpuscular Volume 88.1 fl (80-100); Mean Platelet Volume 9.1 fl (7.4-10.4); Monocytes Absolute Auto 0.8 K/mm3 (0.1-0.6); Neutrophils Absolute Auto 13.6 K/mm3 (1.3-6.7); Neutrophils Percent Auto 80.3 % (45.5-73.1); Platelet Count Result 257 k/mm3 (150-375); Red Blood Count 4.03 M/mm3 (4.6-6.20); Red Cell Distribution Width 14.6 % (11.5-14.5)
[2022-09-10 06:52] LABS: Alanine Aminotransferase 33 U/L (6-50); Albumin Level 2.5 g/dL (3.5-5.1); Alkaline Phosphatase 273 U/L (38-126); Anion Gap 12 mmol/L (8-16); Aspartate Amino Transferase 40 U/L (17-59); Bilirubin,Total 0.5 mg/dL (0.2-1.3); Blood Urea Nitrogen 112 mg/dL (9-20); Calcium 7.9 mg/dL (8.4-10.2); Carbon Dioxide 21 mmol/L (22-30); Chloride 101 mmol/L (98-107); Estimated CRCL calculation 16 ml/min; Estimated Glomerular Filt Rate 16; Glucose 113 mg/dL (65-110); Magnesium 2.2 mg/dL (1.6-2.3); Phosphorus 5.6 mg/dL (2.5-4.5); Potassium 4.5 mmol/L (3.4-5.0); Sodium 134 mmol/L (137-145)
[2022-09-10 06:58] LABS: INR 1.4; Partial Thromboplastin Time 31.6 SECONDS (22.3-36.8); Prothrombin Time 16.8 Seconds (11.1-14.7)
--- NOTE | 2022-09-10 11:07 | PC.NURSE ---
Spoke with pharmacist to clarify that I can run albumin as a primary because order says IVPB. Also called because I removed a vial of morphine this AM but did not give due to hypotension. Shantel states that I have undocumented waste, but I never gave morphine. Pharmacist states to return whole vial of morphine under patient.
[2022-09-10] MEDS: ALBUMIN HUMAN 25% 25 GM/100 ML 100 ML IVPB (11:11)
--- NOTE | 2022-09-10 11:15 | P.PNIM_ITS ---
Progress Note: A&P Assessment and Plan (1) Acute kidney injury superimposed on CKD: Code(s): N17.9 - Acute kidney failure, unspecified; N18.9 - Chronic kidney disease, unspecified Status: Acute Assessment and Plan: * Acute on chronic disease. BUN 112, creatinine 3.70, GFR 18. Baseline BUN 28- 30, creatinine 1.3-1.4, GFR 49, CKD stage 3 * Nephrology consulted and appreciate recommendations. * hold lisinopril and hydrochlorothiazide. Hold nephrotoxic agents. * Renal US - mild right hydronephrosis and 4.1 cm bladder mass Noted on CT * CT also notes multiple renal stones. * Nephrology on the case * Continue fluids at this time * dialysis in consideration, however, trying to avoid * Trend BMP. Monitor electrolytes. * Monitor I/O. * Ur Na 42, Cr 81.1 * Getting better at this time (2) Lung infiltrate: Code(s): R91.8 - Other nonspecific abnormal finding of lung field Status: Acute Assessment and Plan: * CXR with right mid and lower lung infiltrate concerning for pneumonia or atelectasis * Rocephin 1 gram IV Q24 and Zithromax 500 mg IV Q24 hours, DC'd * s/p thoracentesis pleural fluid cytology came back for positive malignancy, high-grade carcinoma compatible with urothelial origin * Oncology on board * CT chest - concerning for hilar lymphadenopathy, bilateral lung nodules max 10 mm, and malignant pleural effusion. (3) Acidosis: Code(s): E87.20 - Acidosis, unspecified Status: Acute Assessment and Plan: * TCO2 18, secondary to CKD * Monitor BMP daily * Nephrology consulting and appreciate recommendations. * Sodium bicarb initiated PO by nephrology (4) Hypotension: Code(s): I95.9 - Hypotension, unspecified Status: Acute Assessment and Plan: * BP noted to be low at this time * Continue to trend * albumin given * anti-hypertensives on hold for now (5) Hypertension: Qualifiers: Hypertension type: primary hypertension Qualified Code(s): I10 - Essential (primary) hypertension Code(s): I10 - Essential (primary) hypertension Status: Chronic Assessment and Plan: * Chronic, stable. * hold amlodipine and atenolol. * Hold lisinopril and HCTZ while hydrating. * BP remains stable at 92/54 (6) Lung nodules: Code(s): R91.8 - Other nonspecific abnormal finding of lung field Status: Acute Assessment and Plan: * CXR with possible hilar mass on admission. * CT chest concerning for bilateral lung nodules and hilar lymphadenopathy with malignant pleural effusion right side, liver masses and peritoneal carcinomatosis * 08/30/22 US guided thoracentesis with -1 liter fluid removed, send fluid for cytology, pH 7.263, gram stain no growth, culture no growth, AFB, total protein 4.1, albumin 2.1, amylase , glucose 48 * Oncology consulted and appreciate recommendations. * 09/08/22 repeat thoracentesis with 1000ml off * Breathing is stable at this time (7) Liver mass: Code(s): R16.0 - Hepatomegaly, not elsewhere classified Status: Acute Assessment and Plan: * Elevated AST 100>65, ALT 100>65, Alk phos 312>261, Tbili 0.5>0.4. Improving trending down. * current AST/ALT is 45/35 alk-phos 270 * Abd US with cirrhosis, hepatomegaly and ascites noted on CT scan * Paracentesis ordered and 3100ml of yellow fluid
--- NOTE | 2022-09-10 11:15 | PM.IMPN ---
Progress Note: A&P Assessment and Plan (1) Acute kidney injury superimposed on CKD: Code(s): N17.9 - Acute kidney failure, unspecified; N18.9 - Chronic kidney disease, unspecified Status: Acute Assessment and Plan: Acute on chronic disease. BUN 112, creatinine 3.70, GFR 18. Baseline BUN 28-30, creatinine 1.3-1.4, GFR 49, CKD stage 3 Nephrology consulted and appreciate recommendations. hold lisinopril and hydrochlorothiazide. Hold nephrotoxic agents. Renal US - mild right hydronephrosis and 4.1 cm bladder mass Noted on CT CT also notes multiple renal stones. Nephrology on the case Continue fluids at this time dialysis in consideration, however, trying to avoid Trend BMP. Monitor electrolytes. Monitor I/O. Ur Na 42, Cr 81.1 Getting better at this time (2) Lung infiltrate: Code(s): R91.8 - Other nonspecific abnormal finding of lung field Status: Acute Assessment and Plan: CXR with right mid and lower lung infiltrate concerning for pneumonia or atelectasis Rocephin 1 gram IV Q24 and Zithromax 500 mg IV Q24 hours, DC'd s/p thoracentesis pleural fluid cytology came back for positive malignancy, high-grade carcinoma compatible with urothelial origin Oncology on board CT chest - concerning for hilar lymphadenopathy, bilateral lung nodules max 10 mm, and malignant pleural effusion. (3) Acidosis: Code(s): E87.20 - Acidosis, unspecified Status: Acute Assessment and Plan: TCO2 18, secondary to CKD Monitor BMP daily Nephrology consulting and appreciate recommendations. Sodium bicarb initiated PO by nephrology (4) Hypotension: Code(s): I95.9 - Hypotension, unspecified Status: Acute Assessment and Plan: BP noted to be low at this time Continue to trend albumin given anti-hypertensives on hold for now (5) Hypertension: Qualifiers: Hypertension type: primary hypertension Qualified Code(s): I10 - Essential (primary) hypertension Code(s): I10 - Essential (primary) hypertension Status: Chronic Assessment and Plan: Chronic, stable. hold amlodipine and atenolol. Hold lisinopril and HCTZ while hydrating. BP remains stable at 92/54 (6) Lung nodules: Code(s): R91.8 - Other nonspecific abnormal finding of lung field Status: Acute Assessment and Plan: CXR with possible hilar mass on admission. CT chest concerning for bilateral lung nodules and hilar lymphadenopathy with malignant pleural effusion right side, liver masses and peritoneal carcinomatosis 08/30/22 US guided thoracentesis with -1 liter fluid removed, send fluid for cytology, pH 7.263, gram stain no growth, culture no growth, AFB, total protein 4.1, albumin 2.1, amylase , glucose 48 Oncology consulted and appreciate recommendations. 09/08/22 repeat thoracentesis with 1000ml off Breathing is stable at this time (7) Liver mass: Code(s): R16.0 - Hepatomegaly, not elsewhere classified Status: Acute Assessment and Plan: Elevated AST 100>65, ALT 100>65, Alk phos 312>261, Tbili 0.5>0.4. Improving trending down. current AST/ALT is 45/35 alk-phos 270 Abd US with cirrhosis, hepatomegaly and ascites noted on CT scan Paracentesis ordered and 3100ml of yellow fluid 09/05/22 09/10/22 3250ml taken off today (8) Generalized weakness: Code(s): R53.1 - Weakness Status: Acute Assessment and Plan: secondary to acute infection and/or malignant disease PT/OT evaluation. Continue medical management as above. Stable likely related to disease process (9) Bladder mass: Code(s): N32.89 - Other specified disorders of bladder Status: Acute Assessment and Plan: Noted on US, hyperechoic bladder mass 4.1 cm Consult Urology and appreciate recommendations. postop day 8 fr
--- NOTE | 2022-09-10 11:51 | PM.PNNEP ---
Progress Note: A&P Assessment and Plan (1) Acute kidney injury superimposed on CKD: Code(s): N17.9 - Acute kidney failure, unspecified; N18.9 - Chronic kidney disease, unspecified Status: Acute Assessment and Plan: Tad has chronic kidney disease. His creatinine has been relatively stable at about 1.3 since 2019. most likely due to hypertension and vascular disease. The patient has acute kidney injury as well. renal ultrasound shows a bladder mass and mild right hydronephrosis. repeat renal ultrasound shows moderate right hydronephrosis and ascites. Fractional excretion of urea shows pre renal azotemia. Urine protein to creatinine ratio was 240 UA shows some red cells and some white cells. CK is normal some of this due to dehydration. the patient is getting IV fluids. he also was getting some albumin because of the paracentesis. His creatinine sharla today. above discussions about hospice are noted. I agree that there is not much more we can do for this patient. I agree with hospice. (2) Lung infiltrate: Code(s): R91.8 - Other nonspecific abnormal finding of lung field Status: Acute Assessment and Plan: the patient has infiltrate on his chest x-ray. He was diagnosed with pneumonia . Antibiotics are finished. (3) Hypertension: Qualifiers: Hypertension type: primary hypertension Qualified Code(s): I10 - Essential (primary) hypertension Code(s): I10 - Essential (primary) hypertension Status: Chronic Assessment and Plan: Patient has hypertension. His blood pressure is low today. Probably due to the paracentesis. He is getting some albumin to bring it back up. Will increase the fluid rate. (4) Acidosis: Code(s): E87.20 - Acidosis, unspecified Status: Acute Assessment and Plan: Metabolic acidosis most likely due to renal disease. CO2 is better at 21 Subjective Date/time seen: 09/10/22 11:51 Interval history: pt feels the same. Just weak. he looks a little worse today. He just came back from paracentesis. He has abdominal discomfort. This is his usual status. He is very thirsty. Exam Narrative: WDWN in NAD skin no rash or subcu nodule head ncat lungs Clear to auscultation cor reg no rub or gallop abd BS+ nontender and soft but bit poochy ext no edema or cyanosis Objective Data Vital Signs Vital Signs: Vital Signs - 24 hr 09/09/22 14:00 09/09/22 19:43 09/09/22 21:00 Temperature 36.3 C L 36.4 C Pulse Rate 81 84 Respiratory Rate 18 20 Blood Pressure 110/70 90/58 L Pulse Oximetry 97 94 Oxygen Delivery Room Air 09/10/22 05:26 09/10/22 07:53 09/10/22 08:30 Temperature 36.4 C Pulse Rate 67 62 Respiratory Rate 20 28 H Blood Pressure 98/62 L 100/71 Pulse Oximetry 94 94 Oxygen Delivery Room Air 09/10/22 08:44 09/10/22 09:51 09/10/22 10:20 Temperature 35.8 C L 36.2 C L Pulse Rate 61 96 Respiratory Rate 16 22 H Blood Pressure 102/52 L 86/55 L 86/54 L Pulse Oximetry 93 94 Oxygen Delivery Intake/Output Intake/Output: Intake & Output 09/07/22 09/08/22 09/09/22 09/10/22 23:59 23:59 23:59 22:59 Intake Total 3762 1300 1580 Output Total 2735 967 397 7111 Balance 1027 555 970 -3600 Meds/Results Medications: Active Medications Generic Name Dose Route Start Last Admin Trade Name Freq PRN Reason Stop Dose Admin Acetaminophen 650 mg 09/02/22 08:32 Acetaminophen 325 Mg Tablet PO Q4H PRN Mild Pain (1-3) or Fever Hydrocodone Bitart/Acetaminophen 1 tab 09/08/22 15:51 09/09/22 12:52 Hydrocodone/Acetaminophen (*Crx) 5-325 Mg Tablet PO 1 tab Q4H PRN Administration Pain Rated 4-6 Atenolol 25 mg 09/04/22 09:00 09/10/22 08:01 Atenolol 25 Mg Tablet PO Not Given DAILY MALA Sodium Bicarbonate 150 meq/ 1,100 mls @ 50 mls/hr 09/08/22 17:00 09/09/22 14:02 Dextrose IV CON
[2022-09-10] MEDS: SODIUM BICARBONATE 8.4% 150 MEQ in DEXTROSE 5% 1,000 ML 950 ML 100 MEQ IV CONT (12:47)
[2022-09-10] MEDS: MEGESTROL ACETATE (*CHEMO) 40 MG TABLET PO ×2 (12:51→20:52)
[2022-09-10] MEDS: MEGESTROL ACETATE (*CHEMO) 20 MG TABLET PO ×2 (12:51→20:52)
[2022-09-10] MEDS: ALBUMIN HUMAN 5% 25 GM/500 ML BTL IV CONT (14:17)
[2022-09-11] MEDS: SODIUM BICARBONATE 8.4% 150 MEQ in DEXTROSE 5% 1,000 ML 950 ML 100 MEQ IV CONT (05:15)
[2022-09-11 05:25] VITALS: BP 99/56; PULSE 88; RESP 24; TEMP 36.6; O2SAT 96
[2022-09-11 05:41] LABS: Alanine Aminotransferase 29 U/L (6-50); Albumin Level 2.9 g/dL (3.5-5.1); Alkaline Phosphatase 246 U/L (38-126); Anion Gap 20 mmol/L (8-16); Aspartate Amino Transferase 40 U/L (17-59); Bilirubin,Total 0.6 mg/dL (0.2-1.3); Blood Urea Nitrogen 112 mg/dL (9-20); Calcium 8.1 mg/dL (8.4-10.2); Carbon Dioxide 21 mmol/L (22-30); Chloride 97 mmol/L (98-107); Estimated CRCL calculation 18 ml/min; Estimated Glomerular Filt Rate 18; Glucose 117 mg/dL (65-110); Hematocrit 32.7 % (42.0-52.0); Hemoglobin 10.8 g/dL (14.0-18.0); Magnesium 2.2 mg/dL (1.6-2.3); Mean Corpuscular Volume 87.9 fl (80-100); Mean Platelet Volume 9.2 fl (7.4-10.4); Phosphorus 4.4 mg/dL (2.5-4.5); Platelet Count Result 208 k/mm3 (150-375); Red Blood Count 3.72 M/mm3 (4.6-6.20); Red Cell Distribution Width 14.6 % (11.5-14.5); Sodium 138 mmol/L (137-145)
[2022-09-11 06:00] VITALS: BP 99/56; PULSE 88; RESP 24; TEMP 36.6; O2SAT 96
[2022-09-11 08:12] VITALS: BP 100/58; PULSE 94; RESP 22; O2SAT 97
[2022-09-11] MEDS: MEGESTROL ACETATE (*CHEMO) 20 MG TABLET PO (08:19)
[2022-09-11] MEDS: MEGESTROL ACETATE (*CHEMO) 40 MG TABLET PO (08:19)
--- NOTE | 2022-09-11 10:45 | P.DS_ITS ---
DS: Admitting Diagnosis Discharge Date 09/11/22 1045 Admitting Diagnosis metastatic bladder cancer DS: Discharge Diagnosis Discharge Diagnosis (1) Acute kidney injury superimposed on CKD: Code(s): N17.9 - Acute kidney failure, unspecified; N18.9 - Chronic kidney disease, unspecified Status: Acute Assessment and Plan: * Acute on chronic disease. BUN 112, creatinine 3.70, GFR 18. Baseline BUN 28- 30, creatinine 1.3-1.4, GFR 49, CKD stage 3 * Nephrology consulted and appreciate recommendations. * hold lisinopril and hydrochlorothiazide. Hold nephrotoxic agents. * Renal US - mild right hydronephrosis and 4.1 cm bladder mass Noted on CT * CT also notes multiple renal stones. * Nephrology on the case * Continue fluids at this time * dialysis in consideration, however, trying to avoid * Trend BMP. Monitor electrolytes. * Monitor I/O. * Ur Na 42, Cr 81.1 * Getting better at this time (2) Lung infiltrate: Code(s): R91.8 - Other nonspecific abnormal finding of lung field Status: Acute Assessment and Plan: * CXR with right mid and lower lung infiltrate concerning for pneumonia or atelectasis * Rocephin 1 gram IV Q24 and Zithromax 500 mg IV Q24 hours, DC'd * s/p thoracentesis pleural fluid cytology came back for positive malignancy, high-grade carcinoma compatible with urothelial origin * Oncology on board * CT chest - concerning for hilar lymphadenopathy, bilateral lung nodules max 10 mm, and malignant pleural effusion. (3) Acidosis: Code(s): E87.20 - Acidosis, unspecified Status: Acute Assessment and Plan: * TCO2 18, secondary to CKD * Monitor BMP daily * Nephrology consulting and appreciate recommendations. * Sodium bicarb initiated PO by nephrology (4) Hypotension: Code(s): I95.9 - Hypotension, unspecified Status: Acute Assessment and Plan: * BP noted to be low at this time * Continue to trend * albumin given * anti-hypertensives on hold for now (5) Hypertension: Qualifiers: Hypertension type: primary hypertension Qualified Code(s): I10 - Essential (primary) hypertension Code(s): I10 - Essential (primary) hypertension Status: Chronic Assessment and Plan: * Chronic, stable. * hold amlodipine and atenolol. * Hold lisinopril and HCTZ while hydrating. * BP remains stable at 92/54 (6) Lung nodules: Code(s): R91.8 - Other nonspecific abnormal finding of lung field Status: Acute Assessment and Plan: * CXR with possible hilar mass on admission. * CT chest concerning for bilateral lung nodules and hilar lymphadenopathy with malignant pleural effusion right side, liver masses and peritoneal carcinomatosis * 08/30/22 US guided thoracentesis with -1 liter fluid removed, send fluid for cytology, pH 7.263, gram stain no growth, culture no growth, AFB, total protein 4.1, albumin 2.1, amylase , glucose 48 * Oncology consulted and appreciate recommendations. * 09/08/22 repeat thoracentesis with 1000ml off * Breathing is stable at this time (7) Liver mass: Code(s): R16.0 - Hepatomegaly, not elsewhere classified Status: Acute Assessment and Plan: * Elevated AST 100>65, ALT 100>65, Alk phos 312>261, Tbili 0.5>0.4. Improving trending down. * current AST/ALT is 45/35 alk-p
== END 2022-09-11 10:29 | disposition hospice, inpatient (51) | DRG 668 ==
LOC: ANHED 19:52 → ANH3MED 21:00
PROVIDERS: Internal Medicine Hematology & Oncology; Internal Medicine Nephrology; Nurse Practitioner; Nurse Practitioner Adult Health; Nurse Practitioner Family; Urology; Admitting Provider Internal Medicine; Emergency Provider Emergency Medicine; PCP Nurse Practitioner Family; Visit Provider Nurse Practitioner
PROC: 0TCB8ZZ Extirpation of Matter from Bladder, Via Natural or Artificial Opening Endoscopic (ICD-10-PCS; CPT 52001; principal; 2022-09-01 12:00)
DX: C67.8 Malignant neoplasm of overlapping sites of bladder (principal); J18.9 Pneumonia, unspecified organism; N17.0 Acute kidney failure with tubular necrosis; R18.8 Other ascites; J91.0 Malignant pleural effusion; C79.11 Secondary malignant neoplasm of bladder; N13.30 Unspecified hydronephrosis; E87.20 Acidosis, unspecified; C67.5 Malignant neoplasm of bladder neck; I12.9 Hypertensive chronic kidney disease with stage 1 through stage 4 chronic kidney disease, or unspecified chronic kidney disease; N18.30 Chronic kidney disease, stage 3 unspecified; E78.5 Hyperlipidemia, unspecified; H91.93 Unspecified hearing loss, bilateral; K75.81 Nonalcoholic steatohepatitis (NASH); K74.60 Unspecified cirrhosis of liver; I25.10 Atherosclerotic heart disease of native coronary artery without angina pectoris; I95.9 Hypotension, unspecified; R91.8 Other nonspecific abnormal finding of lung field; Z79.82 Long term (current) use of aspirin; Z79.899 Other long term (current) drug therapy; Z87.891 Personal history of nicotine dependence; Z82.49 Family history of ischemic heart disease and other diseases of the circulatory system; Z80.3 Family history of malignant neoplasm of breast; Z80.8 Family history of malignant neoplasm of other organs or systems; Z86.16 Personal history of COVID-19; Z85.828 Personal history of other malignant neoplasm of skin; Z20.822 Contact with and (suspected) exposure to COVID-19; E86.0 Dehydration
CPT/HCPCS: 32555; 36415; 49083; 50432; 71045; 71046; 71250; 74018; 74176; 76705; 76775; 80048; 80053; 80069; 80074; 81001; 82042; 82150; 82378; 82550; 82570; 82945; 83520; 83615; 83735; 83986; 84100; 84153; 84156; 84157; 84300; 84311; 84478; 84540; 85025; 85027; 85610; 85652; 85730; 86036; 86038; 86160; 86162; 86301; 86334; 87015; 87040; 87070; 87075; 87086; 87116; 87205; 87206; 87502; 88108; 88184; 88305; 88313; 88342; 89051; 93005; 97161; 97165; 99291; A9270; C1729; C1758; C1769; J0456; J0696; J1100; J1644; J2270; J2370; J2405; J2704; J3010; J7030; J7070; J7120; P9045; P9047; U0003; U0005

== ENCOUNTER 2022-09-11 10:30 | HOS | payer OTHER, MEDICARE, SELFPAY ==
[2022-09-11 10:43] VITALS: BMI 26.9
--- NOTE | 2022-09-11 10:54 | PM.IMHP ---
H&P: HPI History of Present Illness Date/Time: 09/11/22 10:54 Chief Complaint: Metastatic bladder cancer Narrative: patient is a 81-year-old male with past medical history of hypertension, chronic kidney disease, Coronavirus who presented to the ED with complaints of feeling lousy on 08/29/2022. However through the course of hospitalization patient was found to have bladder cancer. Urology was consulted to put in a nephrostomy tube into the right kidney. Patient was also noted to have a mass which had been biopsied and did show carcinoma. A pleural effusion was also noted and it was drained which also showed carcinoma with a urological origin. Patient also was found to have a mass on his liver and has required multiple paracentesis is. Patient has been unable to swallow and medications have been changed to IV or liquid. oncology was consulted and stated the patient could be possibly a candidate for immunotherapy. Nephrology has been managing also with the kidney failure and stated that the right kidney was functioning as a left kidney was not. BUN creatinine were noted to be elevated and fluids were given along with Lasix however have stable doubt at this time. After multiple conversations the patient decided to go hospice for comfort. Patient has agreed with [facility] which has taken over care. Currently patient is resting comfortably. Medications have been changed for improved comfort. Will continue a medication adjustments and changes at this time to ensure maximum comfort for this patient. Patient also is hoping to go home and with maximum pain control hopefully we can get him home tomorrow. Dr. Sumi Negro is the hospice physician. Family and patient are aware of the hospice admission and consents have been signed. 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 CKD (chronic kidney disease) stage 3, GFR 30-59 ml/min Essential (primary) hypertension Hearing loss of both ears History of 2019 novel coronavirus disease (COVID-19) (~01/2020) Hyperlipidemia Family History Family History Mother Hypertension Family history of malignant neoplasm of breast in first degree relative Father Family history of pancreatic cancer Family history of heart disease in male family member before age 55 Social History Social History Smoking packs per day: 1 Smoking cigarettes per day: 20.0 Years smoked: 4 Smoking pack-years: 4.00 Smoking status: Former smoker Alcohol intake: never Substance use: never Substance use type: does not use Has the Lack of Transportation Kept You From Medical Appointments or From Getting Medications?: No Within the Past 12 Months, Were You Worried Whether Your Food Would Run Out Before You Got Money to Buy More?: Never True What is Your Housing Situation Today?: I Have Housing Are You Worried That in the Next 2 Months, You May Not Have Your Own Housing to Live In?: No Do You Have Trouble Paying Your Heating Or Electricity Bill?: No Do You Have Trouble Paying For Medicines?: No Are You Currently Unemployed and Looking for Work?: No Highest Level of Education Completed: Bachelor's Degree Do You Have Trouble With Childcare or the Care of a Family Member?: No Gender identity (if verbalized by the patient): Male Sexual Orientation (if Verbalized by the Patient): Straight or Heterosexual Spiritual care concerns: No Agree to blood products: Yes Meds Home Medications and Allergies Home Medications Medication Instructions Recorded Confirmed Type aspirin 81 mg chewable tablet 81 mg PO DAILY 11/12/19 09/11/22 History (Raquel Chewable Low Dose Aspi
[2022-09-11] MEDS: fentaNYL (*CRX) 50 MCG PATCH TRANSDERM (11:58)
[2022-09-11] MEDS: MORPHINE SULFATE ORAL CONC SOL (*CRX) 10 MG/0.5 ML SYRINGE 20 MG PO ×3 (11:58→20:14)
--- NOTE | 2022-09-11 12:50 | PC.NURSE ---
Patient more relaxed after morphine and fentanyl patch given. Patient states pain has improved, rating it a 4/10. Patient resting comfortably. Family at bedside
[2022-09-11 15:34] VITALS: BP 100/58; PULSE 60; RESP 16; TEMP 36.2; O2SAT 94
[2022-09-11 20:00] VITALS: PULSE 60; RESP 16; O2SAT 94
[2022-09-12] MEDS: MORPHINE SULFATE ORAL CONC SOL (*CRX) 10 MG/0.5 ML SYRINGE 20 MG PO ×3 (00:22→08:00)
--- NOTE | 2022-09-12 07:22 | PM.IMPN ---
Progress Note: A&P Assessment and Plan (1) Admission for hospice care: Code(s): Z51.5 - Encounter for palliative care Status: Acute Assessment and Plan: Patient has been admitted for hospice care at this time. Morphine liquid 20 mg Q 6 fazal, 20 mg Q2 for breakthrough pain Ativan 0.5 q.4 hours for anxiety fentanyl patch for add control of pain activity up as tolerated diet regular Patient appears much more comfortable and pain appears tolerable (2) Malignant neoplasm metastatic from bladder: Code(s): C67.9 - Malignant neoplasm of bladder, unspecified Status: Acute Assessment and Plan: found last admission lesions present in the lung, abdomen, liver possibly will need therapeutic thoracentesis/paracentesis Trend fluid status adjust therapy as indicated (3) Hypotension: Code(s): I95.9 - Hypotension, unspecified Status: Acute Assessment and Plan: blood pressure noted to be a little soft morphine changed to oral continue trend blood pressure adjust therapy as indicated (4) Generalized weakness: Code(s): R53.1 - Weakness Status: Acute Assessment and Plan: fall precautions activity up as tolerated (5) Liver mass: Code(s): R16.0 - Hepatomegaly, not elsewhere classified Status: Acute Assessment and Plan: see above (6) Acute kidney injury superimposed on CKD: Code(s): N17.9 - Acute kidney failure, unspecified; N18.9 - Chronic kidney disease, unspecified Status: Acute Assessment and Plan: last BUN creatinine 112/3.40 hold on fluids for now Trend fluid status adjust therapy as indicated Time Spent With Patient Time with patient: Greater than 35 minutes Subjective Date/time seen: 09/12/22 07:22 Interval history: 09/12/22 09/11/22? 10:54 ?patient is a 81-year-old male with past medical history of hypertension, chronic kidney disease, Coronavirus who presented to the ED with complaints of feeling lousy on 08/29/2022.? However through the course of hospitalization patient was found to have bladder cancer.? Urology was consulted to put in a nephrostomy tube into the right kidney.? Patient was also noted to have a mass which had been biopsied and did show carcinoma.? A pleural effusion was also noted and it was drained which also showed carcinoma with a urological origin.? Patient also was found to have a mass on his liver and has required multiple paracentesis is. Patient has been unable to swallow and medications have been changed to IV or liquid.? oncology was consulted and stated the patient could be possibly a candidate for immunotherapy.? Nephrology has been managing also with the kidney failure and stated that the right kidney was functioning as a left kidney was not.? BUN creatinine were noted to be elevated and fluids were given along with Lasix however have stable doubt at this time.? After multiple conversations the patient decided to go hospice for comfort.? Patient has agreed with [facility] which has taken over care.? Currently patient is resting comfortably.? Medications have been? changed for improved comfort.? Will continue a medication adjustments and changes at this time to ensure maximum comfort for this patient.? Patient also is hoping to go home and with maximum pain control hopefully we can get him home tomorrow.? Dr. Sumi Negro is the hospice physician.? Family and patient are aware of the hospice admission and consents have been signed. Review of Systems Review of Systems: All systems reviewed & are unremarkable except as noted in HPI and below Exam Const: General: well developed, alert, awake, in distress, uncomfortable and well nourished Nutritional Appearance: well nourished Orientation/consciousness: patient oriented x3 Limitations: no limitations [facility]
[2022-09-12 08:00] VITALS: BP 109/72; PULSE 120; RESP 10; TEMP 36.3; O2SAT 85
--- NOTE | 2022-09-12 08:30 | P.DN_ITS ---
Discharge Summary Date and Time Date of : 09/12/22 Time of : 08:30 Provider Pronounced By: Tasneem Mata RN and Anjali Rothman RN Probable Cause of Probable Cause of : metastatic renal cancer Summary Hospital Course: ?patient is a 81-year-old male with past medical history of hypertension, chronic kidney disease, Coronavirus who presented to the ED with complaints of feeling lousy on 08/29/2022.? However through the course of hospitalization patient was found to have bladder cancer.? Urology was consulted to put in a nephrostomy tube into the right kidney.? Patient was also noted to have a mass which had been biopsied and did show carcinoma.? A pleural effusion was also noted and it was drained which also showed carcinoma with a urological origin.? Patient also was found to have a mass on his liver and has required multiple paracentesis is. Patient has been unable to swallow and medications have been changed to IV or liquid.? oncology was consulted and stated the patient could be possibly a candidate for immunotherapy.? Nephrology has been managing also with the kidney failure and stated that the right kidney was functioning as a left kidney was not.? BUN creatinine were noted to be elevated and fluids were given along with Lasix however have stable doubt at this time.? After multiple conversations the patient decided to go hospice for comfort. pain was a big decision factor for this patient as it was uncontrolled. Pain medications reassessed patient was comfortable with pain medication regimen that was given to him. Unfortunately, due to dysphagia patient was unable to take a nutritional support. Patient at 0830. Additional Data Confirmation of as documented by pronouncing clinician: Palpable Pulses, Response to Stimuli, Heart Tones and Breath Sounds Family: contacted Name of Provider Notified: Greg Schultz APN Time Provider Notified: 08:43 Was code activated?: No Provider Requests Autopsy: No Family Requests Autopsy: No Pharmaceutical Plant Operator Notified: Yes Date [facility] Notified of : 09/12/22 Advance directives: Yes Hospice patient?: Yes
--- NOTE | 2022-09-12 09:40 | PC.NURSE ---
Rounded on patient @ 0800, assessed and administered pain medication. Patient was resting comfortable. At 0835 came to patients room at request of color paste mixing supervisor who was cleaning the pts room. Energy Operations Vice President found patient to be @ 0835
== END 2022-09-12 08:35 | disposition expired | DRG 951 ==
PROVIDERS: Admitting Provider Hospitalist; PCP Nurse Practitioner Family; Visit Provider Nurse Practitioner
DX: Z51.5 Encounter for palliative care (principal); C78.00 Secondary malignant neoplasm of unspecified lung; C78.7 Secondary malignant neoplasm of liver and intrahepatic bile duct; C79.89 Secondary malignant neoplasm of other specified sites; C79.00 Secondary malignant neoplasm of unspecified kidney and renal pelvis; J91.0 Malignant pleural effusion; N17.9 Acute kidney failure, unspecified; C67.9 Malignant neoplasm of bladder, unspecified; I12.9 Hypertensive chronic kidney disease with stage 1 through stage 4 chronic kidney disease, or unspecified chronic kidney disease; E78.5 Hyperlipidemia, unspecified; N18.30 Chronic kidney disease, stage 3 unspecified; R13.10 Dysphagia, unspecified; I95.9 Hypotension, unspecified; Z85.828 Personal history of other malignant neoplasm of skin; Z86.16 Personal history of COVID-19; Z87.891 Personal history of nicotine dependence
CPT/HCPCS: A9270